=== PATIENT | female | born 1930 | race Caucasian/White ===

== ENCOUNTER → 2017-02-25 | Outpatient (CLI) | payer MEDICARE ==
[2017-01-09 14:46] VITALS: BP 150/55
[~2017-02-25] MED LIST: ASPI-612 PO; ATEN50TA PO; BRIM5DRO2 OP; BRIN10DR EACHEYE; CHOL100013 PO; CIPR250T30 PO; CIPR500T94 PO; CLOB15CR TP; COLE1TAB2 PO; DORZ10DR7 EACHEYE; ESTR42.53 VG; FLUT16SP NS; FLUT16SP2 NS; FURO40TA4 PO; GLIM2TAB PO; GLIM2TAB2 PO; INSU100C4 SQ; INSU100V8 SQ; LATA2.5D3 OP; MELO15TA23 PO; MENT222L TP; METF-620 PO; NITR0.4T SL; NYST1POW2 PO; QUIN40TA16 PO; SENN1TAB9 PO; SERT25TA4 PO; SIMV20TA3 PO; SPIR25TA3 PO; VENTOLIN HFA18 GM INH
--- NOTE | 2017-03-03 18:59 | EEG ---
DATE OF SERVICE: 02/25/2017 ELECTROENCEPHALOGRAM NUMBER: [id number]. OBJECTIVE: This is an 87-year-old female patient with history of memory loss and cognitive function decline. EEG was requested to evaluate cerebral activity. METHODS: Twenty electrodes were applied according to the international 10-20 electrode placement system. EKG monitoring, hyperventilation, intermittent photic stimulation, monopolar and bipolar montages are routinely utilized. The record was obtained on a digital system with video monitoring. FINDINGS: 1. Background: The patient was recorded mainly in the awake and drowsy states. No actual sleep state was recorded. The overall background amplitude is 5-10 microvolts. A posterior dominant rhythm of 8 Hz is observed. 2. Abnormalities: No specific epileptiform discharge or electrographic seizure is seen. 3. Activation: Hyperventilation was not performed because the patient has shortness of breath. Intermittent photic stimulation was performed with photic driving. IMPRESSION: This electroencephalogram is within the normal limits of the study for the awake and drowsy states mainly. No actual sleep state was recorded. No focal, lateralizing, specific epileptiform discharge or electrographic seizure is seen. MARINO CARRIZALES MD DR: YOLANDA/jim JOB#: [id number] / [id number] KARLIE
== END | disposition home or self-care (01) ==
LOC: RT 10:14
PROVIDERS: ATTEND Psychiatry & Neurology Neurology
DX: F31.9 Bipolar disorder, unspecified (principal); R41.3 Other amnesia; R06.02 Shortness of breath
CPT/HCPCS: 95816

== ENCOUNTER 2017-06-19 09:17 | Emergency (ER) | payer MEDICARE ==
[2017-06-19] MEDS: MORPHINE SULFATE 4 MG/ML DISP.SYRIN. IM ×2 (10:02)
[2017-06-19] MEDS: ONDANSETRON ODT 4 MG TAB.RAPDIS. PO ×2 (10:02)
== END 2017-06-19 12:42 | disposition home or self-care (01) ==
LOC: ER 09:17
DX: M25.552 Pain in left hip (principal); Z96.642 Presence of left artificial hip joint; E78.00 Pure hypercholesterolemia, unspecified; I10 Essential (primary) hypertension; E11.39 Type 2 diabetes mellitus with other diabetic ophthalmic complication; H40.9 Unspecified glaucoma; J44.9 Chronic obstructive pulmonary disease, unspecified; Z87.440 Personal history of urinary (tract) infections; Z90.710 Acquired absence of both cervix and uterus; Z90.49 Acquired absence of other specified parts of digestive tract
CPT/HCPCS: 73502; 96372; 99284-25; J2270; Q0162

== ENCOUNTER → 2018-02-22 | Outpatient (CLI) | payer MEDICARE ==
[2017-06-19 11:54] VITALS: BP 132/82
[~2018-02-22] MED LIST changes: +HYDR-963 PO; +LIDOCAINE 2% PF 2ML VIAL. ONE; -METF-620 PO; +METF10007 PO; +POLY17PO29 PO; +SODI650T PO; -SPIR25TA3 PO; +SPIR25TA5 PO; +THEREMS M PO; +TRIA15CR2 TP; +[UNRECOGNIZED DRUG - CODE] PO; +methylPREDNISolone ACETATE 40 MG/ML VIAL. ONE; +methylPREDNISolone ACETATE 80 MG/ML VIAL. ONE
--- NOTE | 2018-02-23 01:19 | PAIN ---
DATE OF SERVICE: 02/22/2018 INITIAL CONSULTATION FOR PAIN CLINIC CHIEF COMPLAINT: Low back and left lower extremity pain. HISTORY OF PRESENT ILLNESS: This is an 87-year-old female who presents with history of pain in the low back, left lower extremity starting about June of this year, no regional injury or action that she is aware of, just begun hurting more and more each day in the low back, left lower extremity, posterior gluteus, posterior thigh, posterolateral thigh, lateral anterior thigh, medial thigh and anterior knee and medial lower leg. The patient reports it is getting worse with time, worse with standing and weightbearing. The patient has very difficult for her to bear weight and has been more constant, stabbing, tingling, cramping, shooting into the left leg in a radicular pattern. The patient reports it occasionally awaken her from sleep at night. She lives on her left side, especially. She is using a wheelchair to ambulate at most times. It does affect her ability to walk fairly significantly, does not affect her bowel or bladder control, however. The patient was exercising and she is doing some stretching, seems to help. Has had no other form of physical therapies or other modalities prior to this time to help the pain. The patient did have MRI scan of the lumbar spine in the outside facility showing multilevel degenerative neural foraminal stenosis, most pronounced severe degree on the left at the L4-L5 and [id number] degree on the right L2-L3 and L4-L5, degenerative anterolisthesis at L4-L5 as well. The patient rates her disability rate from 0-10, 10 being the worst, as a 3 with family home responsibilities, 4 with recreation, 5 with self care, 0 with sexual behavior, 2 with life support activities. The patient reports no loss of motor function, significant weakness in the left leg and fatigability with walking, standing and ambulating. The patient prefers to use a wheelchair and she is in a wheelchair on her presentation today. PAST MEDICAL HISTORY: Significant for COPD; diabetes, insulin-dependent; hypertension; hyperlipidemia; prolapsed heart valve; headaches; arthritis and Graves disease. PAST SURGICAL HISTORY: Previous surgeries include cholecystectomy, partial hysterectomy, cataract extraction, tonsillectomy and a left hip replacement. CURRENT MEDICATIONS: Include hydrocodone, Cipro, daily baby aspirin, atenolol, latanoprost eyedrops, Estrace, quinapril, colestipol, nitroglycerin, fluticasone, statin, clobetasol, menthol, sennosides, dorzolamide, Combigan eyedrops, Azopt eyedrops, vitamin D, spironolactone, Lasix, sertraline, Meloxicam, insulin, Lantus insulin, NovoLog at sliding scale and inhalers. ALLERGIES: The patient is allergic to CODEINE. FAMILY HISTORY: Significant for hearing loss, diabetes and cancers. SOCIAL HISTORY: The patient does not drink, does not smoke, does not use any illegal, illicit or recreational drugs. She reports she is retired, lives in [facility] and is . REVIEW OF SYSTEMS: The patient's review of systems is positive for those items mentioned in the history of present illness. All systems reviewed and otherwise negative. It is complete, full and well documented on the patient's chart. PHYSICAL EXAMINATION: VITAL SIGNS: Today, the patient's blood pressure is 136/62, pulse 80, respirations are 18, temperature is 98.2 degrees Fahrenheit, height is 5 feet 4 inches and weight is 213 pounds. GENERAL: The patient is awake, alert, oriented, appropriate and very pleasant demeanor. The patient is accompanied by her daughter. The patient is somewhat hard of hearing. HEENT: Head shows normocephalic and atraumatic. Extraocular movements are intact and symmetrical. Oral cavity: Mucous membranes moist and pink. Some increased lacrimation is noted in the eyes bilaterally. NECK: Shows anterior throat supple without palpable lymphadenopathy noted. Swallow reflex is symmetrical. CHEST: Shows normal on inspection. Breath sounds clear to auscultation bilaterally. HEART: Shows S1 and S2 clear. No murmurs auscultated. ABDOMEN: Soft, obese, nontender and nondistended. No palpable organomegaly is noted. No rebound or guarding demonstrated. BACK: Shows spine grossly in the midline. Slight exaggeration of the thoracic kyphosis and some minor flattening of the lumbar lordotic curvature. No previous scars are noted. Lumbar paraspinous muscle shows symmetrical on inspection, on palpation shows some moderate tenderness bilaterally on palpation but only diffusely throughout the upper, middle and lower distribution of the paraspinous muscles without atrophy without asymmetry or radiation. No trigger points. No tenderness over the sacrum or sacroiliac regions and over the spinous processes. The patient has good rotational motion of the lumbar spine, both laterally at 10 degrees right and left as well as extension 10 degrees, forward flexion 45 degrees without significant increase in pain on any of these maneuvers. EXTREMITIES: The patient's lower extremities show deep tendon reflexes at 1+ in the patellar and tendo-calcaneus tendons are equal. Motor exam is approximately 4 on a scale of 5, but equal and symmetrical with dorsiflexion, extension, quadriceps and hamstrings bilaterally. Peripheral pulses are 1+ posterior tibial. She has approximately 1+ pitting edema in the bilateral ankles on the anterior tibia, two-thirds of the distance to the knees and this is present bilaterally. Lower extremities are warm and dry to touch, equal in color and appearance. Straight leg raise noted to be slightly positive on the left at about 40 degrees. This was performed in a semi-recumbent position as the patient is unable to get out of her wheelchair comfortably to get to a supine position completely on the right side, however, was negative with again limited completion of the straight leg raise. SKIN: Shows warm and dry, good turgor. No edema. No sores, rashes or bruising. IMPRESSION: 1. This is an 87-year-old female with low back and left lower extremity pain in a radicular fashion. 2. MRI scan of the lumbar spine as noted. 3. Arthritis. 4. Hypertension. 5. Diabetes. PLAN: Options were discussed with the patient and the patient's daughter who accompanied her to visit today. We discussed interventional techniques, conservative medical management, physical therapies and she would like to pursue interventional techniques. We discussed a lumbar epidural steroid injection using description as well as anatomical models to describe the procedure. Risks were then discussed including, but not limited to bleeding, infection, possibility of epidural hematoma and subsequent neurological compromise, dural puncture, headaches, spinal cord and/or nerve damage, side effects of steroid medication and poor results regarding pain control. The patient understands and wished to proceed. The patient will return to the clinic in approximately 2 weeks for followup, was counseled as to return appointment, activity level and side effects to be aware of. DIAGNOSES: Lumbar radiculopathy with lumbar spinal stenosis and lumbar degenerative disk disease. PROCEDURES: Lumbar epidural steroid injection, translaminar approach at L4-L5 level using sterile prep and drape, local anesthetic. MEDICATION INJECTED: A total of 120 mg Depo-Medrol plus 5 mL of preservative-free normal saline. CONDITION AT DISCHARGE: Stable. The patient tolerated the procedure well and had no complications. JAVIER JACKSON MD DR: PIA/jim JOB#: [id number] / [id number] RONNIE Sanches MD Family Practice, [facility]
== END | disposition home or self-care (01) ==
LOC: PNCL 12:32
PROVIDERS: ATTEND Anesthesiology
DX: M51.16 Intervertebral disc disorders with radiculopathy, lumbar region (principal); M19.90 Unspecified osteoarthritis, unspecified site; I10 Essential (primary) hypertension; E11.9 Type 2 diabetes mellitus without complications; J44.9 Chronic obstructive pulmonary disease, unspecified; F31.9 Bipolar disorder, unspecified; E78.5 Hyperlipidemia, unspecified; Z90.49 Acquired absence of other specified parts of digestive tract; Z90.710 Acquired absence of both cervix and uterus; Z96.642 Presence of left artificial hip joint; Z79.4 Long term (current) use of insulin; Z98.49 Cataract extraction status, unspecified eye; Z79.899 Other long term (current) drug therapy; Z98.890 Other specified postprocedural states
CPT/HCPCS: 62323; J1030; J1040; J2001

== ENCOUNTER → 2018-06-28 | Outpatient (CLI) | payer MEDICARE ==
[2018-06-20 11:00] VITALS: BP 149/80
[~2018-06-28] MED LIST changes: +ACET325T9 PO; +ALBU2.5V8 NEB; +AMOX1TAB10 PO; +CLOT15CR4 TP; +DICL100G18 TP; +GABA300C18 PO; +HYDR-2761 PO; +HYDR-3135 PO; -HYDR-963 PO; +KETO120S5 TP; -LIDOCAINE 2% PF 2ML VIAL. ONE; +LORA10TA3 PO; +SENN-162 PO; -SENN1TAB9 PO; +SIME100L MC; -methylPREDNISolone ACETATE 40 MG/ML VIAL. ONE; -methylPREDNISolone ACETATE 80 MG/ML VIAL. ONE
--- NOTE | 2018-06-28 14:59 | RAD ---
Indication: Right leg pain TECHNIQUE: Multiple views of the lumbar spine COMPARISON: None FINDINGS: Diffuse osteopenia. Lumbar spine demonstrates straightening. This could be due to muscle spasm or positioning. There is subtle levoscoliosis of the upper lumbar spine. Mild multilevel facet arthropathy. No significant loss of vertebral body height to suggest compression deformities. Multilevel intervertebral disc space narrowing with endplate sclerosis. IMPRESSION: 1. Multilevel moderate degenerative disc disease. Electronically signed by: Enrique Licea DO (06/28/2018 2:54 PM) [id number]
== END | disposition home or self-care (01) ==
LOC: RAD 14:00 → EDSTATUS 06-29 16:10
PROVIDERS: ATTEND Family Medicine
DX: M79.604 Pain in right leg (principal); M51.36 Other intervertebral disc degeneration, lumbar region; M41.86 Other forms of scoliosis, lumbar region; M48.061 Spinal stenosis, lumbar region without neurogenic claudication; M12.88 Other specific arthropathies, not elsewhere classified, other specified site
CPT/HCPCS: 72110

== ENCOUNTER 2018-07-22 10:44 | Inpatient (IN) | payer MEDICARE ==
[~2018-07-22] VITALS: Ht 152.4 cm; Wt 94.5 kg
--- NOTE | 2018-07-22 11:02 | PHYS DOC ---
Past Medical History Past Medical History: Angina, COPD, Diabetes-Type II, Diverticulosis, Glaucoma , High Cholesterol, Hypertension, UTI Past Surgical History: Appendectomy, Hysterectomy Additional Past Surgical Histo: left hip Alcohol Use: None Drug Use: None Adult General Chief Complaint Chief Complaint: HYPOTENSION HPI HPI Patient is a 88 year old female with a history of diabetes, hypertension,COPD, kidney disease, who presents to the ED today from the cap blocker office. Patient states she had gone for routine kidney check, she states they checked her creatinine which was 2.2 and she was hypotensive with blood pressure in the 80s over 50s patient denies any symptoms. PCP Dr. Tellez Review of Systems Review of Systems Constitutional: Denies fever or chills [] Eyes: Denies change in visual acuity, redness, or eye pain [] HENT: Denies nasal congestion or sore throat [] Respiratory: Denies cough or shortness of breath [] Cardiovascular: Reports hypertension. No additional information not addressed in HPI [] GI: Denies abdominal pain, nausea, vomiting, bloody stools or diarrhea [] : Denies dysuria or hematuria [] Musculoskeletal: Denies back pain or joint pain [] Integument: Denies rash or skin lesions [] Neurologic: Denies headache, focal weakness or sensory changes [] Endocrine: Reports elevated creatinine All other systems were reviewed and found to be within normal limits, except as documented in this note. Allergies Allergies Allergies Coded Allergies Type Severity Reaction Last Updated Verified codeine Allergy Intermediate Rash 06/17/18 Yes Physical Exam Physical Exam Constitutional: Overweight patient,no acute distress, non-toxic appearance. [] HENT: Normocephalic, atraumatic, bilateral external ears normal, oropharynx moist, no oral exudates, nose normal. [] Eyes: PERRLA, EOMI, conjunctiva normal, no discharge. [] Neck: Normal range of motion, no tenderness, supple, no stridor. [] Cardiovascular:Heart rate regular rhythm, no murmur [] Lungs & Thorax: Bilateral breath sounds clear to auscultation [] Abdomen: Bowel sounds normal, soft, no tenderness, no masses, no pulsatile masses. [] Skin: Warm, dry, no erythema, no rash. [] Back: No tenderness, no CVA tenderness. [] Extremities: No tenderness, no cyanosis, no clubbing, ROM intact, no edema. [] Neurologic: Alert and oriented X 3, normal motor function, normal sensory function, no focal deficits noted. [] Psychologic: Affect normal, judgement normal, mood normal. [] Current Patient Data Vital Signs Vital Signs Date Time Temp Pulse Resp B/P (MAP) Pulse Ox O2 Delivery O2 Flow Rate FiO2 07/22/18 11:02 97.5 85 20 140/58 (85) 96 Room Air 97.5 Lab Values Laboratory Tests Test 07/22/18 10:57 07/22/18 11:20 07/22/18 12:15 Glucose (Fingerstick) 58 mg/dL (70-99) L Urine Collection Type Unknown Urine Color Yellow Urine Clarity Clear Urine pH 7.0 Urine Specific [place] 1.015 Urine Protein Negative mg/dL (NEG-TRACE) Urine Glucose (UA) Negative mg/dL (NEG) Urine Ketones (Stick) Negative mg/dL (NEG) Urine Blood Negative (NEG) Urine Nitrite Negative (NEG) Urine Bilirubin Negative (NEG) Urine Urobilinogen Dipstick 0.2 mg/dL (0.2 mg/dL) Urine Leukocyte Esterase Large (NEG) Urine RBC 0 /HPF (0-2) Urine WBC Tntc /HPF (0-4) Urine Squamous Epithelial Cells Many /LPF Urine Bacteria Moderate /HPF (0-FEW) White Blood Count 9.2 x10^3/uL (4.0-11.0) Red Blood Count 3.84 x10^6/uL (3.50-5.40) Hemoglobin 11.5 g/dL (12.0-15.5) L Hematocrit 35.5 % (36.0-47.0) L Mean Corpuscular Volume 93 fL (79-100) Mean Corpuscular Hemoglobin 30 pg (25-35) Mean Corpuscular Hemoglobin Concent 33 g/dL (31-37) Red Cell Distribution Width 15.4 % (11.5-14.5) H Platelet Count 337 x10^3/uL (140-400) Neutrophils (%) (Auto) 69 % (31-73) Lymphocytes (%) (Auto) 22 % (24-48) L Monocytes (%) (Auto) 8 % (0-9) Eosinophils (%) (Auto) 1 % (0-3) Basophils (%) (Auto) 1 % (0-3) Neutrophils # (Auto) 6.3 x10^3uL (1.8-7.7) Lymphocytes # (Auto) 2.0 x10^3/uL (1.0-4.8) Monocytes # (Auto) 0.7 x10^3/uL (0.0-1.1) Eosinophils # (Auto) 0.0 x10^3/uL (0.0-0.7) Basophils # (Auto) 0.1 x10^3/uL (0.0-0.2) Sodium Level 141 mmol/L (136-145) Potassium Level 4.7 mmol/L (3.5-5.1) Chloride Level 102 mmol/L (98-107) Carbon Dioxide Level 30 mmol/L (21-32) Anion Gap 9 (6-14) Blood Urea Nitrogen 37 mg/dL (7-20) H Creatinine 2.0 mg/dL (0.6-1.0) H Estimated GFR (Cockcroft-Gault) 23.5 BUN/Creatinine Ratio 19 (6-20) Glucose Level 111 mg/dL (70-99) H Calcium Level 9.6 mg/dL (8.5-10.1) Magnesium Level 2.0 mg/dL (1.8-2.4) Total Bilirubin 0.4 mg/dL (0.2-1.0) Aspartate Amino Transferase (AST) 19 U/L (15-37) Alanine Aminotransferase (ALT) 9 U/L (14-59) L Alkaline Phosphatase 77 U/L (46-116) Creatine Kinase 62 U/L (26-192) Creatine Kinase MB (Mass) 2.2 ng/mL (0.0-3.6) Creatine Kinase MB Relative Index % (0-4) Troponin I Quantitative < 0.017 ng/mL (0.000-0.055) TK-Dpz-R-Type Natriuretic Peptide 826 pg/mL (0-449) H Total Protein 7.1 g/dL (6.4-8.2) Albumin 2.8 g/dL (3.4-5.0) L Albumin/Globulin Ratio 0.7 (1.0-1.7) L Thyroid Stimulating Hormone (TSH) 1.152 uIU/mL (0.358-3.74) Laboratory Tests 07/22/18 12:15 Laboratory Tests 07/22/18 12:15 EKG EKG [] Radiology/Procedures Radiology/Procedures [] Course & Med Decision Making Course & Med Decision Making Pertinent Labs and Imaging studies reviewed. (See chart for details) This is a 88-year-old female patient presenting to the ED today to be evaluated for hypotension and elevated creatinine which were noted at the doctor's office. On arrival to the ED blood pressure 140/58 with a heart rate of 85. CBC with hemoglobin of 11.5, hematocrit 35.5, normal WBC, CMP with creatinine of 2.0, BUN 37. Urine analysis is noted for a UTI. Patient will be started on IV fluids. Rocephin ordered. Consulted with Dr. Meredith who will follow-up with patient for nephrology Consulted Dr. Mittal who accepted patient for admission. Dragon Disclaimer Dragon Disclaimer This electronic medical record was generated, in whole or in part, using a voice recognition dictation system. Departure Departure Impression: Primary Impression: UTI (urinary tract infection) Additional Impressions: Acute renal failure Hypotension Disposition: ADMITTED INPATIENT Condition: STABLE Referrals: JONATHAN ALMANZAR MD (PCP) Problem Qualifiers Primary Impression: UTI (urinary tract infection) Urinary tract infection type: site unspecified Hematuria presence: without hematuria Qualified Codes: N39.0 - Urinary tract infection, site not specified Additional Impressions: Acute renal failure Acute renal failure type: unspecified Qualified Codes: N17.9 - Acute kidney failure, unspecified Hypotension Hypotension type: unspecified hypotension type Qualified Codes: I95.9 - Hypotension, unspecified DARLIN CELESTIN APRN Jul 22, 2018 11:02
[2018-07-22 11:27] LABS: BILIRUBIN,URINE NEGATIVE (NEG); CLARITY,URINE CLEAR; COLOR,URINE YELLOW; NITRITE,URINE NEGATIVE (NEG); PROTEIN,URINE NEGATIVE (NEG-TRACE); UROBILINOGEN,URINE 0.2 mg/dL (0.2 mg/dL)
[2018-07-22 11:37] LABS: BACTERIA,URINE MODERATE /HPF (0-FEW); RBC,URINE 0 /HPF (0-2); SQUAMOUS EPITHELIAL CELL,UR MANY /LPF; WBC,URINE TNTC /HPF (0-4)
--- NOTE | 2018-07-22 11:52 | RAD ---
PORTABLE CHEST 1V Clinical indications: HYPOTENSIVE COMPARISON: May 19, 2018. Findings: There is elevation of the right hemidiaphragm which is unchanged. There is medial left lung base infiltrate or atelectasis. No pleural effusion or pneumothorax is seen. The heart size, pulmonary vasculature, mediastinum and both sammy are stable. Impression: Medial left lung base infiltrate or atelectasis. Electronically signed by: Tod James MD (07/22/2018 11:49 AM) [facility]
--- NOTE | 2018-07-22 11:58 | EKG ---
[facility] [address] [place] [address] Test Date: 2018-07-22 Test Time: 11:11:01 Pat Name: ARNOLD MARCANO Department: Room: Gender: F Radiologic Technologist: : [id number] Requested By: DARLIN CELESTIN Order Number: [id number] Reading MD: Shorty Mendez MD Measurements Intervals Tillar Rate: 76 P: 50 CA: 190 QRS: -8 QRSD: 76 T: 16 QT: 346 QTc: 393 Interpretive Statements SINUS RHYTHM LEFTWARD AXIS QRS(T) CONTOUR ABNORMALITY CONSISTENT WITH ANTEROSEPTAL INFARCT AGE UNDETERMINED CONSISTENT WITH INFERIOR INFARCT PROBABLY OLD ABNORMAL ECG Electronically Signed On 07-26-2018 8:07:27 GEAR MACHINIST by Shorty Mendez MD
[2018-07-22 12:27] LABS: BASO # 0.1 x10^3/uL (0.0-0.2); BASO % 1 % (0-3); EOS % 1 % (0-3); HEMATOCRIT 35.5 % (36.0-47.0); HEMOGLOBIN 11.5 g/dL (12.0-15.5); LYMPH % 22 % (24-48); MEAN CORPUSCULAR HEMOGLOBIN 30 pg (25-35); MEAN CORPUSCULAR HGB CONC 33 g/dL (31-37); MEAN CORPUSCULAR VOLUME 93 fL (79-100); MONO # 0.7 x10^3/uL (0.0-1.1); MONO % 8 % (0-9); NEUT # 6.3 x10^3uL (1.8-7.7); NEUT % 69 % (31-73); PLATELET COUNT 337 x10^3/uL (140-400); RED BLOOD COUNT 3.84 x10^6/uL (3.50-5.40); RED CELL DISTRIBUTION WIDTH 15.4 % (11.5-14.5); WHITE BLOOD COUNT 9.2 x10^3/uL (4.0-11.0)
[2018-07-22 12:38] LABS: CALCIUM 9.6 mg/dL (8.5-10.1); GFR 23.5; POTASSIUM 4.7 mmol/L (3.5-5.1)
[2018-07-22 12:43] LABS: ALBUMIN 2.8 g/dL (3.4-5.0); ALBUMIN/GLOBULIN RATIO 0.7 (1.0-1.7); TOTAL BILIRUBIN 0.4 mg/dL (0.2-1.0); TOTAL PROTEIN 7.1 g/dL (6.4-8.2)
[2018-07-22 12:52] LABS: CREATINE KINASE 62 U/L (26-192)
[2018-07-22] MEDS ORDERED: ONDANSETRON PF 4 MG/2 ML VIAL. IV PRN (13:30)
[2018-07-22] MEDS ORDERED: IV NORMAL SALINE 1000ML BAG 1,000 ML IV ONE ×2 (13:30)
[2018-07-22] MEDS ORDERED: cefTRIAXone IV Push 1 GM VIAL. IVP ONE (13:30)
[2018-07-22 15:00] VITALS: BP 153/63
--- NOTE | 2018-07-22 15:28 | HP ---
ADMIT DATE: 07/22/2018 CHIEF COMPLAINT: Hypotension and elevated creatinine. 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 She was also hypotensive with pressures in the 80s/50s. She was sent to the ER, rates her symptoms as 7/10. She has associated dizziness, it has been occurring for several days. She is also very hard of hearing. She tried taking some home meds but that did not work, describes as agonizing. I have discussed the case with the ER physician. We are going to admit the patient and consult Nephrology. PAST MEDICAL HISTORY: Chronic renal insufficiency, severely decreased hearing, angina, COPD, diabetes, diverticulosis, glaucoma, hyperlipidemia, hypertension, UTI, appendectomy, hysterectomy, left hip surgery. ALLERGIES: CODEINE. FAMILY HISTORY: Coronary artery disease. SOCIAL HISTORY: She is retired. She does not drink, smoke or take drugs. MEDICATIONS: Reviewed. She is on 26 including Augmentin, ProAir, Nitrostat, quinapril, spironolactone, aspirin, Voltaren, Tylenol, gabapentin, sertraline, Lasix, guaifenesin, fluticasone, glaucoma eye drops, sodium bicarbonate, simethicone, MiraLax, insulin, clotrimazole, Nizoral, triamcinolone cream, vitamin D. REVIEW OF SYSTEMS: GENERAL: No history of weight change, weakness or fevers. SKIN: No bruising, hair changes or rashes. EYES: No blurred, double or loss of vision. NOSE AND THROAT: No history of nosebleeds, hoarseness or sore throat. HEART: No history of palpitations, chest pain or shortness of breath on exertion. LUNGS: Denies cough, hemoptysis, wheezing or shortness of breath. GASTROINTESTINAL: Denies changes in appetite, nausea, vomiting, diarrhea or constipation. GENITOURINARY: No history of frequency, urgency, hesitancy or nocturia. NEUROLOGIC: She complains of decreased hearing and dizziness. PSYCHIATRIC: No history of panic, anxiety or depression. ENDOCRINE: No history of heat or cold intolerance, polyuria or polydipsia. EXTREMITIES: Denies muscle weakness, joint pain, pain on walking or stiffness. PHYSICAL EXAMINATION: VITAL SIGNS: Temperature afebrile, pulse 80, respirations 20, blood pressure currently 140/58, O2 sat 96%. GENERAL: She is alert, cooperative, hard of hearing. Her family is present. HEART: Normal S1, S2. LUNGS: Clear. ABDOMEN: Soft, obese. EXTREMITIES: Trace edema. SKIN: No rashes. ENDOCRINE: No thyromegaly. LYMPHATICS: No cervical nodes. HEMATOPOIETIC: No bruising. PSYCHIATRIC: She is anxious. LABORATORY DATA: Troponin 0. Creatinine 2, BUN 37, hemoglobin 11.5. Urinalysis, large amount of leukocyte esterase, too numerous to count white cells. BNP is 826. Chest x-ray shows mild left basilar infiltrate or atelectasis. ASSESSMENT AND PLAN: Acute on chronic renal failure with azotemia and incidental finding of urinary tract infection, anemia and probable mild element of heart failure. Possible pneumonia. The patient has been admitted. We will start IV antibiotics, IV fluids, daily labs, home meds, PT, OT, consult Nephrology, full code. Deep vein thrombosis prophylaxis, normal saline 75 an hour. O2 per nasal cannula. Check TSH, urine culture, consult Cardiology. RICKEY OROZCO DO DR: KHOA/jim JOB#: [id number] / [id number]
[2018-07-22] MEDS ORDERED: NYST15PO9 TP (16:42)
[2018-07-22] MEDS ORDERED: HYDR-2765 PO ×2 (16:42)
[2018-07-22] MEDS ORDERED: LEVO750T5 PO (16:42)
[2018-07-22] MEDS ORDERED: MV-M1TAB8 PO (16:42)
[2018-07-22] MEDS ORDERED: guaiFENesin DM 200MG/20MG 10 ML SYRUP PO PRN (17:00)
[2018-07-22] MEDS ORDERED: DEXTROSE 50% 25 GM / 50ML DISP.SYRIN. IV PRN (17:00)
[2018-07-22] MEDS ORDERED: DICLOFENAC SODIUM 1% TOPICAL GEL 100GM TUBE. TP PRN (17:00)
[2018-07-22] MEDS ORDERED: HYDROcodone/APAP 7.5/325MG 1 TAB TABLET PO PRN (17:00)
[2018-07-22] MEDS: INSULIN LISPRO 300 UNITS/3 ML INSULN.PEN. SQ SCH (17:00)
[2018-07-22] MEDS ORDERED: ACETAMINOPHEN 325 MG TABLET. PO PRN (17:00)
[2018-07-22] MEDS ORDERED: ALBUTEROL SULFATE 2.5 MG/3 ML NEBU. NEB PRN (17:00)
[2018-07-22] MEDS ORDERED: NITROGLYCERIN SUBLINGUAL 0.4 MG BOTTLE OF 25. SL PRN (17:00)
[2018-07-22] MEDS ORDERED: CETIRIZINE HCL 10 MG TABLET. PO PRN (17:15)
[2018-07-22] MEDS ORDERED: POLYETHYLENE GLYCOL 3350 17 GM PACKET. PO PRN (17:16)
[2018-07-22] MEDS ORDERED: SIMETHICONE 80 MG TAB.CHEW PO PRN (17:30)
[2018-07-22] MEDS: LISINOPRIL 20 MG TABLET PO SCH (18:38)
[2018-07-22 19:00] VITALS: BP 129/56
[2018-07-22] MEDS: GABAPENTIN 300 MG CAPSULE. PO SCH (20:31)
[2018-07-22] MEDS: SODIUM BICARBONATE 650 MG TABLET. PO SCH (20:31)
[2018-07-22] MEDS: TIMOLOL 0.5% OPHTH SOLUTION 5ML BOTTLE. OU SCH (20:32)
[2018-07-22] MEDS: DORZOLAMIDE 2% OPHTH SOLUTION 10ML BOTTLE. OU SCH (20:32)
[2018-07-22] MEDS: HYDROcodone/APAP 7.5/325MG 1 TAB TABLET PO SCH (20:32)
[2018-07-22] MEDS: LATANOPROST 0.005% OPHTH SOLUTION 2.5ML BOTTLE. OU SCH (20:33)
[2018-07-22] MEDS: INSULIN GLARGINE 300 UNITS/3 ML INSULN.PEN. SQ SCH (20:33)
[2018-07-22] MEDS: NYSTATIN TOPICAL POWDER 15GM BOTTLE. TP SCH (20:34)
[2018-07-22 23:00] VITALS: BP 109/47
[2018-07-23 03:00] VITALS: BP 109/36
[2018-07-23 07:36] VITALS: BP 136/58
[2018-07-23] MEDS: INSULIN LISPRO 300 UNITS/3 ML INSULN.PEN. SQ SCH ×3 (08:00→16:57)
[2018-07-23] MEDS: SERTRALINE 25 MG TABLET. PO SCH (08:46)
[2018-07-23] MEDS: GABAPENTIN 300 MG CAPSULE. PO SCH (08:48)
[2018-07-23] MEDS: FUROSEMIDE 40 MG TABLET. PO SCH (08:48)
[2018-07-23] MEDS: CHOLECALCIFEROL (VITAMIN D3) 1,000 UNIT TABLET PO SCH (08:48)
[2018-07-23] MEDS: MULTIVITAMIN with MINERAL TABLET. PO SCH (08:48)
[2018-07-23] MEDS: HYDROcodone/APAP 7.5/325MG 1 TAB TABLET PO SCH ×3 (08:48→20:27)
[2018-07-23] MEDS: SODIUM BICARBONATE 650 MG TABLET. PO SCH ×2 (08:49→20:27)
[2018-07-23] MEDS: SPIRONOLACTONE 25 MG TABLET PO SCH (08:50)
[2018-07-23] MEDS: LISINOPRIL 20 MG TABLET PO SCH (08:50)
[2018-07-23] MEDS: NYSTATIN TOPICAL POWDER 15GM BOTTLE. TP SCH ×3 (08:51→20:25)
[2018-07-23] MEDS: FLUTICASONE 50MCG/NASAL SPRAY 16GM BOTTLE. NS SCH (08:51)
[2018-07-23] MEDS: DORZOLAMIDE 2% OPHTH SOLUTION 10ML BOTTLE. OU SCH ×2 (08:51→20:27)
[2018-07-23] MEDS: TIMOLOL 0.5% OPHTH SOLUTION 5ML BOTTLE. OU SCH ×2 (08:51→20:27)
--- NOTE | 2018-07-23 10:32 | PDOC ---
PROGRESS NOTES History of Present Illness History of Present Illness ASSESSMENT /PLAN: Acute on chronic renal failure azotemia urinary tract infection, / sirs anemia CONGESTIVE heart failure. Possible pneumonia. admitted. IV antibiotics, IV fluid SUPPORT, daily labs, home meds, PT, OT, consult Nephrology, full code. Deep vein thrombosis prophylaxis, O2 per nasal cannula. Check TSH, urine culture, consult Cardiology. Vitals Vitals Vital Signs Date Time Temp Pulse Resp B/P (MAP) Pulse Ox O2 Delivery O2 Flow Rate FiO2 07/23/18 09:55 97 Room Air 2.0 07/23/18 08:50 84 136/58 07/23/18 07:36 98.3 18 98.3 Physical Exam Physical Exam GENERAL: She is alert, cooperative, hard of hearing. HEART: Normal S1, S2. LUNGS: Clear. ABDOMEN: Soft, obese. EXTREMITIES: Trace edema. SKIN: No rashes. ENDOCRINE: No thyromegaly. LYMPHATICS: No cervical nodes. HEMATOPOIETIC: No bruising. PSYCHIATRIC: mood , anxious. General: Alert, Oriented X3, Cooperative Heart: Regular rate Lungs: Clear, Wheezing Abdomen: Soft, No hepatosplenomegaly Extremities: No cyanosis, No edema Labs LABS PORTABLE CHEST 1V Clinical indications: HYPOTENSIVE COMPARISON: May 19, 2018. Findings: There is elevation of the right hemidiaphragm which is unchanged. There is medial left lung base infiltrate or atelectasis. No pleural effusion or pneumothorax is seen. The heart size, pulmonary vasculature, mediastinum and both sammy are stable. Impression: Medial left lung base infiltrate or atelectasis. Electronically signed by: Tod James MD (07/22/2018 11:49 AM) [facility] Laboratory Tests Test 07/22/18 10:57 07/22/18 11:20 07/22/18 12:15 07/22/18 15:11 Glucose (Fingerstick) 58 mg/dL (70-99) 80 mg/dL (70-99) Urine Collection Type Unknown Urine Color Yellow Urine Clarity Clear Urine pH 7.0 Urine Specific Pope 1.015 Urine Protein Negative mg/dL (NEG-TRACE) Urine Glucose (UA) Negative mg/dL (NEG) Urine Ketones (Stick) Negative mg/dL (NEG) Urine Blood Negative (NEG) Urine Nitrite Negative (NEG) Urine Bilirubin Negative (NEG) Urine Urobilinogen Dipstick 0.2 mg/dL (0.2 mg/dL) Urine Leukocyte Esterase Large (NEG) Urine RBC 0 /HPF (0-2) Urine WBC Tntc /HPF (0-4) Urine Squamous Epithelial Cells Many /LPF Urine Bacteria Moderate /HPF (0-FEW) White Blood Count 9.2 x10^3/uL (4.0-11.0) Red Blood Count 3.84 x10^6/uL (3.50-5.40) Hemoglobin 11.5 g/dL (12.0-15.5) Hematocrit 35.5 % (36.0-47.0) Mean Corpuscular Volume 93 fL (79-100) Mean Corpuscular Hemoglobin 30 pg (25-35) Mean Corpuscular Hemoglobin Concent 33 g/dL (31-37) Red Cell Distribution Width 15.4 % (11.5-14.5) Platelet Count 337 x10^3/uL (140-400) Neutrophils (%) (Auto) 69 % (31-73) Lymphocytes (%) (Auto) 22 % (24-48) Monocytes (%) (Auto) 8 % (0-9) Eosinophils (%) (Auto) 1 % (0-3) Basophils (%) (Auto) 1 % (0-3) Neutrophils # (Auto) 6.3 x10^3uL (1.8-7.7) Lymphocytes # (Auto) 2.0 x10^3/uL (1.0-4.8) Monocytes # (Auto) 0.7 x10^3/uL (0.0-1.1) Eosinophils # (Auto) 0.0 x10^3/uL (0.0-0.7) Basophils # (Auto) 0.1 x10^3/uL (0.0-0.2) Sodium Level 141 mmol/L (136-145) Potassium Level 4.7 mmol/L (3.5-5.1) Chloride Level 102 mmol/L (98-107) Carbon Dioxide Level 30 mmol/L (21-32) Anion Gap 9 (6-14) Blood Urea Nitrogen 37 mg/dL (7-20) Creatinine 2.0 mg/dL (0.6-1.0) Estimated GFR (Cockcroft-Gault) 23.5 BUN/Creatinine Ratio 19 (6-20) Glucose Level 111 mg/dL (70-99) Calcium Level 9.6 mg/dL (8.5-10.1) Magnesium Level 2.0 mg/dL (1.8-2.4) Total Bilirubin 0.4 mg/dL (0.2-1.0) Aspartate Amino Transf (AST/SGOT) 19 U/L (15-37) Alanine Aminotransferase (ALT/SGPT) 9 U/L (14-59) Alkaline Phosphatase 77 U/L (46-116) Creatine Kinase 62 U/L (26-192) Creatine Kinase MB (Mass) 2.2 ng/mL (0.0-3.6) Creatine Kinase MB Relative Index % (0-4) Troponin I Quantitative < 0.017 ng/mL (0.000-0.055) CO-Mjo-I-Type Natriuretic Peptide 826 pg/mL (0-449) Total Protein 7.1 g/dL (6.4-8.2) Albumin 2.8 g/dL (3.4-5.0) Albumin/Globulin Ratio 0.7 (1.0-1.7) Thyroid Stimulating Hormone (TSH) 1.152 uIU/mL (0.358-3.74) Test 07/22/18 20:32 07/23/18 07:04 Glucose (Fingerstick) 199 mg/dL (70-99) 81 mg/dL (70-99) Assessment and Plan Assessmemt and Plan Problems Medical Problems: (1) Acute renal failure Status: Acute (2) Hypotension Status: Acute (3) UTI (urinary tract infection) Status: Acute Comment Review of Relevant I have reviewed the following items danny (where applicable) has been applied. Labs Laboratory Tests Test 07/22/18 10:57 07/22/18 11:20 07/22/18 12:15 07/22/18 15:11 Glucose (Fingerstick) 58 mg/dL (70-99) 80 mg/dL (70-99) Urine Collection Type Unknown Urine Color Yellow Urine Clarity Clear Urine pH 7.0 Urine Specific Pope 1.015 Urine Protein Negative mg/dL (NEG-TRACE) Urine Glucose (UA) Negative mg/dL (NEG) Urine Ketones (Stick) Negative mg/dL (NEG) Urine Blood Negative (NEG) Urine Nitrite Negative (NEG) Urine Bilirubin Negative (NEG) Urine Urobilinogen Dipstick 0.2 mg/dL (0.2 mg/dL) Urine Leukocyte Esterase Large (NEG) Urine RBC 0 /HPF (0-2) Urine WBC Tntc /HPF (0-4) Urine Squamous Epithelial Cells Many /LPF Urine Bacteria Moderate /HPF (0-FEW) White Blood Count 9.2 x10^3/uL (4.0-11.0) Red Blood Count 3.84 x10^6/uL (3.50-5.40) Hemoglobin 11.5 g/dL (12.0-15.5) Hematocrit 35.5 % (36.0-47.0) Mean Corpuscular Volume 93 fL (79-100) Mean Corpuscular Hemoglobin 30 pg (25-35) Mean Corpuscular Hemoglobin Concent 33 g/dL (31-37) Red Cell Distribution Width 15.4 % (11.5-14.5) Platelet Count 337 x10^3/uL (140-400) Neutrophils (%) (Auto) 69 % (31-73) Lymphocytes (%) (Auto) 22 % (24-48) Monocytes (%) (Auto) 8 % (0-9) Eosinophils (%) (Auto) 1 % (0-3) Basophils (%) (Auto) 1 % (0-3) Neutrophils # (Auto) 6.3 x10^3uL (1.8-7.7) Lymphocytes # (Auto) 2.0 x10^3/uL (1.0-4.8) Monocytes # (Auto) 0.7 x10^3/uL (0.0-1.1) Eosinophils # (Auto) 0.0 x10^3/uL (0.0-0.7) Basophils # (Auto) 0.1 x10^3/uL (0.0-0.2) Sodium Level 141 mmol/L (136-145) Potassium Level 4.7 mmol/L (3.5-5.1) Chloride Level 102 mmol/L (98-107) Carbon Dioxide Level 30 mmol/L (21-32) Anion Gap 9 (6-14) Blood Urea Nitrogen 37 mg/dL (7-20) Creatinine 2.0 mg/dL (0.6-1.0) Estimated GFR (Cockcroft-Gault) 23.5 BUN/Creatinine Ratio 19 (6-20) Glucose Level 111 mg/dL (70-99) Calcium Level 9.6 mg/dL (8.5-10.1) Magnesium Level 2.0 mg/dL (1.8-2.4) Total Bilirubin 0.4 mg/dL (0.2-1.0) Aspartate Amino Transf (AST/SGOT) 19 U/L (15-37) Alanine Aminotransferase (ALT/SGPT) 9 U/L (14-59) Alkaline Phosphatase 77 U/L (46-116) Creatine Kinase 62 U/L (26-192) Creatine Kinase MB (Mass) 2.2 ng/mL (0.0-3.6) Creatine Kinase MB Relative Index % (0-4) Troponin I Quantitative < 0.017 ng/mL (0.000-0.055) BP-Yiq-S-Type Natriuretic Peptide 826 pg/mL (0-449) Total Protein 7.1 g/dL (6.4-8.2) Albumin 2.8 g/dL (3.4-5.0) Albumin/Globulin Ratio 0.7 (1.0-1.7) Thyroid Stimulating Hormone (TSH) 1.152 uIU/mL (0.358-3.74) Test 07/22/18 20:32 07/23/18 07:04 Glucose (Fingerstick) 199 mg/dL (70-99) 81 mg/dL (70-99) Laboratory Tests Test 07/22/18 10:57 07/22/18 11:20 07/22/18 12:15 07/22/18 15:11 Glucose (Fingerstick) 58 mg/dL (70-99) 80 mg/dL (70-99) Urine Collection Type Unknown Urine Color Yellow Urine Clarity Clear Urine pH 7.0 Urine Specific Pope 1.015 Urine Protein Negative mg/dL (NEG-TRACE) Urine Glucose (UA) Negative mg/dL (NEG) Urine Ketones (Stick) Negative mg/dL (NEG) Urine Blood Negative (NEG) Urine Nitrite Negative (NEG) Urine Bilirubin Negative (NEG) Urine Urobilinogen Dipstick 0.2 mg/dL (0.2 mg/dL) Urine Leukocyte Esterase Large (NEG) Urine RBC 0 /HPF (0-2) Urine WBC Tntc /HPF (0-4) Urine Squamous Epithelial Cells Many /LPF Urine Bacteria Moderate /HPF (0-FEW) White Blood Count 9.2 x10^3/uL (4.0-11.0) Red Blood Count 3.84 x10^6/uL (3.50-5.40) Hemoglobin 11.5 g/dL (12.0-15.5) Hematocrit 35.5 % (36.0-47.0) Mean Corpuscular Volume 93 fL (79-100) Mean Corpuscular Hemoglobin 30 pg (25-35) Mean Corpuscular Hemoglobin Concent 33 g/dL (31-37) Red Cell Distribution Width 15.4 % (11.5-14.5) Platelet Count 337 x10^3/uL (140-400) Neutrophils (%) (Auto) 69 % (31-73) Lymphocytes (%) (Auto) 22 % (24-48) Monocytes (%) (Auto) 8 % (0-9) Eosinophils (%) (Auto) 1 % (0-3) Basophils (%) (Auto) 1 % (0-3) Neutrophils # (Auto) 6.3 x10^3uL (1.8-7.7) Lymphocytes # (Auto) 2.0 x10^3/uL (1.0-4.8) Monocytes # (Auto) 0.7 x10^3/uL (0.0-1.1) Eosinophils # (Auto) 0.0 x10^3/uL (0.0-0.7) Basophils # (Auto) 0.1 x10^3/uL (0.0-0.2) Sodium Level 141 mmol/L (136-145) Potassium Level 4.7 mmol/L (3.5-5.1) Chloride Level 102 mmol/L (98-107) Carbon Dioxide Level 30 mmol/L (21-32) Anion Gap 9 (6-14) Blood Urea Nitrogen 37 mg/dL (7-20) Creatinine 2.0 mg/dL (0.6-1.0) Estimated GFR (Cockcroft-Gault) 23.5 BUN/Creatinine Ratio 19 (6-20) Glucose Level 111 mg/dL (70-99) Calcium Level 9.6 mg/dL (8.5-10.1) Magnesium Level 2.0 mg/dL (1.8-2.4) Total Bilirubin 0.4 mg/dL (0.2-1.0) Aspartate Amino Transf (AST/SGOT) 19 U/L (15-37) Alanine Aminotransferase (ALT/SGPT) 9 U/L (14-59) Alkaline Phosphatase 77 U/L (46-116) Creatine Kinase 62 U/L (26-192) Creatine Kinase MB (Mass) 2.2 ng/mL (0.0-3.6) Creatine Kinase MB Relative Index % (0-4) Troponin I Quantitative < 0.017 ng/mL (0.000-0.055) FG-Kzv-M-Type Natriuretic Peptide 826 pg/mL (0-449) Total Protein 7.1 g/dL (6.4-8.2) Albumin 2.8 g/dL (3.4-5.0) Albumin/Globulin Ratio 0.7 (1.0-1.7) Thyroid Stimulating Hormone (TSH) 1.152 uIU/mL (0.358-3.74) Test 07/22/18 20:32 07/23/18 07:04 Glucose (Fingerstick) 199 mg/dL (70-99) 81 mg/dL (70-99) Medications Current Medications Sodium Chloride 1,000 ml @ 1,000 mls/hr 1X ONCE IV Last administered on at 13:56; Start 07/22/18 at 13:30; Stop 07/22/18 at 14:29; Status DC Ceftriaxone Sodium (Rocephin) 1 gm 1X ONCE IVP Last administered on 07/22/18at 13:57; Start 07/22/18 at 13:30; Stop 07/22/18 at 13:31; Status DC Ondansetron HCl (Zofran) 4 mg PRN Q8HRS PRN IV NAUSEA/VOMITING; Start 07/22/18 at 13:30; Stop 07/23/18 at 13:29 Sodium Chloride 1,000 ml @ 75 mls/hr 1X ONCE IV Last administered on at 16:33; Start 07/22/18 at 13:30; Stop 07/23/18 at 02:49; Status DC Ceftriaxone Sodium (Rocephin) 1 gm Q24H IVP ; Start 07/23/18 at 13:00 Influenza Virus Vaccine (Afluria Trivalent 4445-7615 Syringe) 0.5 ml ONCE ONCE VAX IM Last administered on 07/22/18at 16:41; Start 07/22/18 at 16:00; Stop at 16:01; Status DC Acetaminophen (Tylenol) 650 mg PRN QID PRN PO MILD PAIN; Start 07/22/18 at 17:00 Diclofenac Sodium (Voltaren) 2 south PRN QID PRN TP arthritis; Start 07/22/18 at 17:00 Fluticasone Propionate (Flonase) 2 spray DAILY NS Last administered on 08:51; Start 07/23/18 at 09:00 Furosemide (Lasix) 40 mg DAILY PO Last administered on 07/23/18 08:48; Start at 09:00 Gabapentin (Neurontin) 300 mg TID PO Last administered on 07/23/18 08:48; Start 07/22/18 at 21:00 Guaifenesin (Robitussin Dm) 10 ml PRN QID PRN PO COUGH; Start 07/22/18 at 17:00 Acetaminophen/ Hydrocodone Bitart (Lortab 7.5/325) 1 tab PRN Q6HRS PRN PO MODERATE PAIN; Start 07/22/18 at 17:00 Acetaminophen/ Hydrocodone Bitart (Lortab 7.5/325) 1 tab TID PO Last administered on 07/23/18at 08:48; Start 07/22/18 at 21:00 Nitroglycerin (Nitrostat) 0.4 mg PRN Q5MIN PRN SL CHEST PAIN; Start 07/22/18 at 17:00 Nystatin (Nystop) 1 south TID TP Last administered on 07/23/18 08:51; Start at 21:00 Sodium Bicarbonate (Sodium Bicarbonate) 650 mg BID PO Last administered on 08:49; Start 07/22/18 at 21:00 Vitamin D (Vitamin D3) 1,000 unit DAILY PO Last administered on 07/23/18 08:48 ; Start 07/23/18 at 09:00 Dorzolamide HCl (Trusopt) 1 drop BID OU Last administered on 07/23/18 08:51; Start 07/22/18 at 21:00 Insulin Glargine (Lantus) 15 units QHS SQ Last administered on 07/22/18 20:33; Start 07/22/18 at 21:00 Latanoprost (Xalatan) 1 drop QHS OU Last administered on 07/22/18 20:33; Start 07/22/18 at 21:00 Cetirizine HCl (ZyrTEC) 10 mg PRN DAILY PRN PO ALLERGIES; Start 07/22/18 at 17: 15 Multivitamins (Thera M Plus) 1 tab DAILY PO Last administered on 07/23/18 08:48 ; Start 07/23/18 at 09:00 Polyethylene Glycol (miraLAX PACKET) 17 gm PRN DAILY PRN PO CONSTIPATION; Start 07/22/18 at 17:16 Lisinopril (Prinivil) 40 mg DAILY PO Last administered on 07/23/18 08:50; Start 07/22/18 at 17:30 Sertraline HCl (Zoloft) 25 mg DAILY PO Last administered on 07/23/18 08:46; Start 07/23/18 at 09:00 Simethicone (Gas-X) 80 mg PRN AFTMEALHC PRN PO GAS / BLOATING; Start 07/22/18 at 17:30 Spironolactone (Aldactone) 25 mg DAILY PO Last administered on 07/23/18 08:50; Start 07/23/18 at 09:00 Albuterol Sulfate (Ventolin Neb Soln) 2.5 mg PRN Q6HRS PRN NEB SHORTNESS OF BREATH; Start 07/22/18 at 17:00 Insulin Human Lispro (HumaLOG) 0-9 UNITS TIDWMEALS SQ ; Start 07/22/18 at 17:00 Dextrose (Dextrose 50%-Water Syringe) 12.5 gm PRN Q15MIN PRN IV SEE COMMENTS; Start 07/22/18 at 17:00 Timolol Maleate (Timoptic 0.5% Ophth) 1 drop BID OU Last administered on 08:51; Start 07/22/18 at 21:00 Active Scripts Active Proair Hfa (Albuterol Sulfate) 8.5 Gm Hfa.aer.ad 2.5 Mg NEB PRN Q6HRS PRN 14 Days Reported Levofloxacin 750 Mg Tablet 750 Mg PO QODAY 2 Days Hydrocodone-Apap 7.5-325 (Hydrocodone Bit/Acetaminophen) 1 Tab Tablet 1 Tab PO PRN Q6HRS PRN Theragran-M Premier 50+ Caplet (Mv-Mn/Fa/Coq10/Lycopene/Lutein) 1 Each Tablet 1 Each PO DAILY Nystatin 15 Gm Powder 15 Gm TP TID Hydrocodone-Apap 7.5-325 (Hydrocodone Bit/Acetaminophen) 1 Tab Tablet 1 Tab PO TID Simethicone 100 Ml Liquid 30 Ml MC PRN QID PRN Loratadine 10 Mg Tablet 1 Tab PO DAILY PRN Voltaren (Diclofenac Sodium) 100 Gm Gel..gram. 2 Gm TP QID PRN Clotrimazole 15 Gm Cream..g. 1 South TP BID PRN Tylenol (Acetaminophen) 325 Mg Tablet 2 Tab PO PRN QID PRN Nizoral (Ketoconazole) 120 Ml Shampoo 1 South TP TWICE WEEKLY Gabapentin (Gabapentin) 300 Mg Capsule 300 Mg PO TID Furosemide 40 Mg Tablet 1 Tab PO DAILY Fluticasone Propionate Nasal [place] (Fluticasone Propionate) 16 Gm [place].susp 2 [place] NS DAILY Aspirin Ec (Aspirin) 81 Mg Tablet.dr 1 Tab PO DAILY Tussin Dm Clear Liquid (Guaifenesin/Dextromethorphan) 118 Ml Syrup 118 Ml PO QID PRN Miralax (Polyethylene Glycol 3350) 17 Gm Powd.pack 1 Packet PO DAILY PRN Sodium Bicarbonate 650 Mg Tablet 1 Tab PO BID Lantus (Insulin Glargine,Hum.rec.anlog) 100 Unit/1 Ml Vial 15 Unit SQ HS Novolog (Insulin Aspart) 100 Unit/1 Ml Cartridge 0 SQ DAILYWSUP sliding scale <160=0 units 160-200=4 units 201-250=6 units 251-300=8 units 301-350=10 units 351-400=12 units >400=call Nitrostat (Nitroglycerin) 0.4 Mg Tab.subl 0.4 Mg SL PRN Q5MIN PRN Dorzolamide-Timolol Eye Drops (Dorzolamide Hcl/Timolol Maleat) 10 Ml Drops 1 Drop EACHEYE BID Vitamin D (Cholecalciferol (Vitamin D3)) 1,000 Unit Capsule 1 Cap PO DAILY Spironolactone 25 Mg Tablet 1 Tab PO DAILY Sertraline Hcl 25 Mg Tablet 25 Mg PO DAILY Latanoprost 2.5 Ml Drops 2.5 Ml OP HS Quinapril Hcl 40 Mg Tablet 40 Mg PO DAILY Vitals/I & O Vital Sign - Last 24 Hours 07/22/18 07/22/18 07/22/18 07/22/18 11:02 12:00 13:00 14:00 Temp 97.5 97.5 Pulse 85 74 86 82 Resp 20 15 19 14 B/P (MAP) 140/58 (85) 105/56 (72) 116/58 (77) 129/57 (81) Pulse Ox 96 91 99 95 O2 Delivery Room Air Nasal Cannula Nasal Cannula Nasal Cannula O2 Flow Rate 2.0 2.0 2.0 07/22/18 07/22/18 07/22/18 07/22/18 15:00 17:00 18:38 19:00 Temp 97.5 98.6 97.5 98.6 Pulse 82 82 84 Resp 18 18 B/P (MAP) 153/63 (93) 153/63 129/56 (80) Pulse Ox 97 95 O2 Delivery Nasal Cannula Nasal Cannula Nasal Cannula O2 Flow Rate 2.0 2.0 2.0 07/22/18 07/22/18 07/22/18 07/22/18 20:30 20:32 21:30 23:00 Temp 97.9 97.9 Pulse 71 Resp 18 B/P (MAP) 109/47 (67) Pulse Ox 97 O2 Delivery Nasal Cannula Nasal Cannula Room Air O2 Flow Rate 2.0 2.0 07/23/18 07/23/18 07/23/18 07/23/18 03:00 07:36 08:48 08:50 Temp 97.9 98.3 97.9 98.3 Pulse 68 84 84 Resp 18 B/P (MAP) 109/36 (60) 136/58 (84) 136/58 Pulse Ox 98 97 97 O2 Delivery Room Air Room Air Room Air O2 Flow Rate 2.0 07/23/18 09:55 Pulse Ox 97 O2 Delivery Room Air O2 Flow Rate 2.0 Intake and Output 07/22/18 07/22/18 07/23/18 14:59 22:59 06:59 Intake Total 1013 ml Balance 1013 ml EMILY LUNDBERG MD Jul 23, 2018 10:32
[2018-07-23 11:44] VITALS: BP 119/58
[2018-07-23 12:35] LABS: BASO % 0 % (0-3); EOS # 0.1 x10^3/uL (0.0-0.7); EOS % 1 % (0-3); HEMATOCRIT 35.4 % (36.0-47.0); HEMOGLOBIN 11.5 g/dL (12.0-15.5); LYMPH # 1.8 x10^3/uL (1.0-4.8); LYMPH % 28 % (24-48); MEAN CORPUSCULAR HEMOGLOBIN 30 pg (25-35); MEAN CORPUSCULAR HGB CONC 33 g/dL (31-37); MEAN CORPUSCULAR VOLUME 93 fL (79-100); MONO # 0.5 x10^3/uL (0.0-1.1); MONO % 7 % (0-9); NEUT # 4.3 x10^3uL (1.8-7.7); NEUT % 64 % (31-73); PLATELET COUNT 313 x10^3/uL (140-400); RED CELL DISTRIBUTION WIDTH 15.6 % (11.5-14.5); WHITE BLOOD COUNT 6.7 x10^3/uL (4.0-11.0)
[2018-07-23 12:51] LABS: CALCIUM 8.9 mg/dL (8.5-10.1); CREATININE 1.6 mg/dL (0.6-1.0); GFR 30.4; POTASSIUM 4.4 mmol/L (3.5-5.1)
[2018-07-23] MEDS: cefTRIAXone IV Push 1 GM VIAL. IVP SCH (13:18)
--- NOTE | 2018-07-23 13:52 | PDOC2 ---
CONSULT Date of Consult Date of Consult DATE: 07/23/18 TIME: 13:46 Reason for Consult Reason for Consult: Heart failure Referring Physician Referring Physician: Dr. Mittal Identification/Chief Complaint Chief Complaint weakness Source Source: Chart review, Patient History of Present Illness Reason for Visit: The patient is an 88-year-old female with multiple medical problems who was admitted from her halfway after findings of systolic pressure in the 80s and creatinine elevated to 2.2. She has a history of chronic pain and reported mild upper shoulder pain on examination today. She has a history of hypertension and hyperlipidemia. It is uncertain if she has a documented history of coronary disease. An echocardiogram performed in 2017 showed normal left ventricular systolic function with no significant valvular disease. She is been treated for acute renal failure and urinary traction and her hypotension and reports feeling slightly better today. Past Medical History Cardiovascular: HTN, Hyperlipidemia Pulmonary: COPD CENTRAL NERVOUS SYSTEM: CVA GI: Diverticulosis, Other Heme/Onc: No pertinent hx Hepatobiliary: No pertinent hx Psych: Anxiety Musculoskeletal: Osteoarthritis Rheumatologic: No pertinent hx Infectious disease: No pertinent hx Renal/: Chronic renal insuff, UTI, Urinary Incontinence, Other Endocrine: Diabetes Past Surgical History Past Surgical History: Cholecystectomy, Total hip replacement, Tonsillectomy, Hysterectomy Family History Family History: Cancer Social History Social History: Other No ALCOHOL: none Drugs: None Current Problem List Problem List Problems Medical Problems: (1) Acute renal failure Status: Acute (2) Hypotension Status: Acute (3) UTI (urinary tract infection) Status: Acute Current Medications Current Medications Current Medications Sodium Chloride 1,000 ml @ 1,000 mls/hr 1X ONCE IV Last administered on at 13:56; Start 07/22/18 at 13:30; Stop 07/22/18 at 14:29; Status DC Ceftriaxone Sodium (Rocephin) 1 gm 1X ONCE IVP Last administered on 07/22/18at 13:57; Start 07/22/18 at 13:30; Stop 07/22/18 at 13:31; Status DC Ondansetron HCl (Zofran) 4 mg PRN Q8HRS PRN IV NAUSEA/VOMITING; Start 07/22/18 at 13:30; Stop 07/23/18 at 13:29; Status DC Sodium Chloride 1,000 ml @ 75 mls/hr 1X ONCE IV Last administered on at 16:33; Start 07/22/18 at 13:30; Stop 07/23/18 at 02:49; Status DC Ceftriaxone Sodium (Rocephin) 1 gm Q24H IVP Last administered on 07/23/18 13:18 ; Start 07/23/18 at 13:00 Influenza Virus Vaccine (Afluria Trivalent 2096-1473 Syringe) 0.5 ml ONCE ONCE VAX IM Last administered on 07/22/18 16:41; Start 07/22/18 at 16:00; Stop at 16:01; Status DC Acetaminophen (Tylenol) 650 mg PRN QID PRN PO MILD PAIN; Start 07/22/18 at 17:00 Diclofenac Sodium (Voltaren) 2 south PRN QID PRN TP arthritis; Start 07/22/18 at 17:00 Fluticasone Propionate (Flonase) 2 spray DAILY NS Last administered on 08:51; Start 07/23/18 at 09:00 Furosemide (Lasix) 40 mg DAILY PO Last administered on 07/23/18 08:48; Start at 09:00 Gabapentin (Neurontin) 300 mg TID PO Last administered on 07/23/18 08:48; Start 07/22/18 at 21:00; Stop 07/23/18 at 11:25; Status DC Guaifenesin (Robitussin Dm) 10 ml PRN QID PRN PO COUGH; Start 07/22/18 at 17:00 Acetaminophen/ Hydrocodone Bitart (Lortab 7.5/325) 1 tab PRN Q6HRS PRN PO MODERATE PAIN Last administered on 07/23/18 13:34; Start 07/22/18 at 17:00 Acetaminophen/ Hydrocodone Bitart (Lortab 7.5/325) 1 tab TID PO Last administered on 07/23/18 08:48; Start 07/22/18 at 21:00 Nitroglycerin (Nitrostat) 0.4 mg PRN Q5MIN PRN SL CHEST PAIN; Start 07/22/18 at 17:00 Nystatin (Nystop) 1 south TID TP Last administered on 07/23/18 13:35; Start at 21:00 Sodium Bicarbonate (Sodium Bicarbonate) 650 mg BID PO Last administered on 08:49; Start 07/22/18 at 21:00 Vitamin D (Vitamin D3) 1,000 unit DAILY PO Last administered on 07/23/18 08:48 ; Start 07/23/18 at 09:00 Dorzolamide HCl (Trusopt) 1 drop BID OU Last administered on 07/23/18 08:51; Start 07/22/18 at 21:00 Insulin Glargine (Lantus) 15 units QHS SQ Last administered on 07/22/18 20:33; Start 07/22/18 at 21:00 Latanoprost (Xalatan) 1 drop QHS OU Last administered on 07/22/18 20:33; Start 07/22/18 at 21:00 Cetirizine HCl (ZyrTEC) 10 mg PRN DAILY PRN PO ALLERGIES; Start 07/22/18 at 17: 15 Multivitamins (Thera M Plus) 1 tab DAILY PO Last administered on 07/23/18 08:48 ; Start 07/23/18 at 09:00 Polyethylene Glycol (miraLAX PACKET) 17 gm PRN DAILY PRN PO CONSTIPATION Last administered on 07/23/18 13:33; Start 07/22/18 at 17:16 Lisinopril (Prinivil) 40 mg DAILY PO Last administered on 07/23/18 08:50; Start 07/22/18 at 17:30 Sertraline HCl (Zoloft) 25 mg DAILY PO Last administered on 07/23/18 08:46; Start 07/23/18 at 09:00 Simethicone (Gas-X) 80 mg PRN AFTMEALHC PRN PO GAS / BLOATING; Start 07/22/18 at 17:30 Spironolactone (Aldactone) 25 mg DAILY PO Last administered on 07/23/18 08:50; Start 07/23/18 at 09:00 Albuterol Sulfate (Ventolin Neb Soln) 2.5 mg PRN Q6HRS PRN NEB SHORTNESS OF BREATH; Start 07/22/18 at 17:00 Insulin Human Lispro (HumaLOG) 0-9 UNITS TIDWMEALS SQ Last administered on 12:22; Start 07/22/18 at 17:00 Dextrose (Dextrose 50%-Water Syringe) 12.5 gm PRN Q15MIN PRN IV SEE COMMENTS; Start 07/22/18 at 17:00 Timolol Maleate (Timoptic 0.5% Ophth) 1 drop BID OU Last administered on at 08:51; Start 07/22/18 at 21:00 Lactobacillus Rhamnosus (Culturelle) 1 cap BID PO ; Start 07/23/18 at 21:00 Gabapentin (Neurontin) 300 mg DAILY PO ; Start 07/24/18 at 09:00 Active Scripts Active Proair Hfa (Albuterol Sulfate) 8.5 Gm Hfa.aer.ad 2.5 Mg NEB PRN Q6HRS PRN 14 Days Reported Levofloxacin 750 Mg Tablet 750 Mg PO QODAY 2 Days Hydrocodone-Apap 7.5-325 (Hydrocodone Bit/Acetaminophen) 1 Tab Tablet 1 Tab PO PRN Q6HRS PRN Theragran-M Premier 50+ Caplet (Mv-Mn/Fa/Coq10/Lycopene/Lutein) 1 Each Tablet 1 Each PO DAILY Nystatin 15 Gm Powder 15 Gm TP TID Hydrocodone-Apap 7.5-325 (Hydrocodone Bit/Acetaminophen) 1 Tab Tablet 1 Tab PO TID Simethicone 100 Ml Liquid 30 Ml MC PRN QID PRN Loratadine 10 Mg Tablet 1 Tab PO DAILY PRN Voltaren (Diclofenac Sodium) 100 Gm Gel..gram. 2 Gm TP QID PRN Clotrimazole 15 Gm Cream..g. 1 South TP BID PRN Tylenol (Acetaminophen) 325 Mg Tablet 2 Tab PO PRN QID PRN Nizoral (Ketoconazole) 120 Ml Shampoo 1 South TP TWICE WEEKLY Gabapentin (Gabapentin) 300 Mg Capsule 300 Mg PO TID Furosemide 40 Mg Tablet 1 Tab PO DAILY Fluticasone Propionate Nasal [place] (Fluticasone Propionate) 16 Gm [place].susp 2 [place] NS DAILY Aspirin Ec (Aspirin) 81 Mg Tablet.dr 1 Tab PO DAILY Tussin Dm Clear Liquid (Guaifenesin/Dextromethorphan) 118 Ml Syrup 118 Ml PO QID PRN Miralax (Polyethylene Glycol 3350) 17 Gm Powd.pack 1 Packet PO DAILY PRN Sodium Bicarbonate 650 Mg Tablet 1 Tab PO BID Lantus (Insulin Glargine,Hum.rec.anlog) 100 Unit/1 Ml Vial 15 Unit SQ HS Novolog (Insulin Aspart) 100 Unit/1 Ml Cartridge 0 SQ DAILYWSUP sliding scale <160=0 units 160-200=4 units 201-250=6 units 251-300=8 units 301-350=10 units 351-400=12 units >400=call Nitrostat (Nitroglycerin) 0.4 Mg Tab.subl 0.4 Mg SL PRN Q5MIN PRN Dorzolamide-Timolol Eye Drops (Dorzolamide Hcl/Timolol Maleat) 10 Ml Drops 1 Drop EACHEYE BID Vitamin D (Cholecalciferol (Vitamin D3)) 1,000 Unit Capsule 1 Cap PO DAILY Spironolactone 25 Mg Tablet 1 Tab PO DAILY Sertraline Hcl 25 Mg Tablet 25 Mg PO DAILY Latanoprost 2.5 Ml Drops 2.5 Ml OP HS Quinapril Hcl 40 Mg Tablet 40 Mg PO DAILY Allergies Allergies: Coded Allergies: codeine (Verified Allergy, Intermediate, Rash, 06/17/18) TOLERATES LORTAB ROS General: YES: Fatigue, Malaise Respiratory: YES: SOB with excertion Physical Exam General: mild distress HEENT: Atraumatic Lungs: Other (mildly decreased breath sounds) Heart: Regular rate Abdomen: Normal bowel sounds Vitals VITALS Vital Signs Date Time Temp Pulse Resp B/P (MAP) Pulse Ox O2 Delivery O2 Flow Rate FiO2 07/23/18 13:34 94 Nasal Cannula 2.0 07/23/18 11:44 97.7 78 18 119/58 (78) 97.7 Labs Labs Laboratory Tests Test 07/22/18 10:57 07/22/18 11:20 07/22/18 12:15 07/22/18 15:11 Glucose (Fingerstick) 58 mg/dL (70-99) 80 mg/dL (70-99) Urine Collection Type Unknown Urine Color Yellow Urine Clarity Clear Urine pH 7.0 Urine Specific [place] 1.015 Urine Protein Negative mg/dL (NEG-TRACE) Urine Glucose (UA) Negative mg/dL (NEG) Urine Ketones (Stick) Negative mg/dL (NEG) Urine Blood Negative (NEG) Urine Nitrite Negative (NEG) Urine Bilirubin Negative (NEG) Urine Urobilinogen Dipstick 0.2 mg/dL (0.2 mg/dL) Urine Leukocyte Esterase Large (NEG) Urine RBC 0 /HPF (0-2) Urine WBC Tntc /HPF (0-4) Urine Squamous Epithelial Cells Many /LPF Urine Bacteria Moderate /HPF (0-FEW) White Blood Count 9.2 x10^3/uL (4.0-11.0) Red Blood Count 3.84 x10^6/uL (3.50-5.40) Hemoglobin 11.5 g/dL (12.0-15.5) Hematocrit 35.5 % (36.0-47.0) Mean Corpuscular Volume 93 fL (79-100) Mean Corpuscular Hemoglobin 30 pg (25-35) Mean Corpuscular Hemoglobin Concent 33 g/dL (31-37) Red Cell Distribution Width 15.4 % (11.5-14.5) Platelet Count 337 x10^3/uL (140-400) Neutrophils (%) (Auto) 69 % (31-73) Lymphocytes (%) (Auto) 22 % (24-48) Monocytes (%) (Auto) 8 % (0-9) Eosinophils (%) (Auto) 1 % (0-3) Basophils (%) (Auto) 1 % (0-3) Neutrophils # (Auto) 6.3 x10^3uL (1.8-7.7) Lymphocytes # (Auto) 2.0 x10^3/uL (1.0-4.8) Monocytes # (Auto) 0.7 x10^3/uL (0.0-1.1) Eosinophils # (Auto) 0.0 x10^3/uL (0.0-0.7) Basophils # (Auto) 0.1 x10^3/uL (0.0-0.2) Sodium Level 141 mmol/L (136-145) Potassium Level 4.7 mmol/L (3.5-5.1) Chloride Level 102 mmol/L (98-107) Carbon Dioxide Level 30 mmol/L (21-32) Anion Gap 9 (6-14) Blood Urea Nitrogen 37 mg/dL (7-20) Creatinine 2.0 mg/dL (0.6-1.0) Estimated GFR (Cockcroft-Gault) 23.5 BUN/Creatinine Ratio 19 (6-20) Glucose Level 111 mg/dL (70-99) Calcium Level 9.6 mg/dL (8.5-10.1) Magnesium Level 2.0 mg/dL (1.8-2.4) Total Bilirubin 0.4 mg/dL (0.2-1.0) Aspartate Amino Transf (AST/SGOT) 19 U/L (15-37) Alanine Aminotransferase (ALT/SGPT) 9 U/L (14-59) Alkaline Phosphatase 77 U/L (46-116) Creatine Kinase 62 U/L (26-192) Creatine Kinase MB (Mass) 2.2 ng/mL (0.0-3.6) Creatine Kinase MB Relative Index % (0-4) Troponin I Quantitative < 0.017 ng/mL (0.000-0.055) WL-Nwz-S-Type Natriuretic Peptide 826 pg/mL (0-449) Total Protein 7.1 g/dL (6.4-8.2) Albumin 2.8 g/dL (3.4-5.0) Albumin/Globulin Ratio 0.7 (1.0-1.7) Thyroid Stimulating Hormone (TSH) 1.152 uIU/mL (0.358-3.74) Test 07/22/18 20:32 07/23/18 07:04 07/23/18 11:02 07/23/18 12:00 Glucose (Fingerstick) 199 mg/dL (70-99) 81 mg/dL (70-99) 213 mg/dL (70-99) White Blood Count 6.7 x10^3/uL (4.0-11.0) Red Blood Count 3.80 x10^6/uL (3.50-5.40) Hemoglobin 11.5 g/dL (12.0-15.5) Hematocrit 35.4 % (36.0-47.0) Mean Corpuscular Volume 93 fL (79-100) Mean Corpuscular Hemoglobin 30 pg (25-35) Mean Corpuscular Hemoglobin Concent 33 g/dL (31-37) Red Cell Distribution Width 15.6 % (11.5-14.5) Platelet Count 313 x10^3/uL (140-400) Neutrophils (%) (Auto) 64 % (31-73) Lymphocytes (%) (Auto) 28 % (24-48) Monocytes (%) (Auto) 7 % (0-9) Eosinophils (%) (Auto) 1 % (0-3) Basophils (%) (Auto) 0 % (0-3) Neutrophils # (Auto) 4.3 x10^3uL (1.8-7.7) Lymphocytes # (Auto) 1.8 x10^3/uL (1.0-4.8) Monocytes # (Auto) 0.5 x10^3/uL (0.0-1.1) Eosinophils # (Auto) 0.1 x10^3/uL (0.0-0.7) Basophils # (Auto) 0.0 x10^3/uL (0.0-0.2) Sodium Level 140 mmol/L (136-145) Potassium Level 4.4 mmol/L (3.5-5.1) Chloride Level 103 mmol/L (98-107) Carbon Dioxide Level 31 mmol/L (21-32) Anion Gap 6 (6-14) Blood Urea Nitrogen 28 mg/dL (7-20) Creatinine 1.6 mg/dL (0.6-1.0) Estimated GFR (Cockcroft-Gault) 30.4 Glucose Level 154 mg/dL (70-99) Calcium Level 8.9 mg/dL (8.5-10.1) Laboratory Tests Test 07/22/18 15:11 07/22/18 20:32 07/23/18 07:04 07/23/18 11:02 Glucose (Fingerstick) 80 mg/dL (70-99) 199 mg/dL (70-99) 81 mg/dL (70-99) 213 mg/dL (70-99) Test 07/23/18 12:00 White Blood Count 6.7 x10^3/uL (4.0-11.0) Red Blood Count 3.80 x10^6/uL (3.50-5.40) Hemoglobin 11.5 g/dL (12.0-15.5) Hematocrit 35.4 % (36.0-47.0) Mean Corpuscular Volume 93 fL (79-100) Mean Corpuscular Hemoglobin 30 pg (25-35) Mean Corpuscular Hemoglobin Concent 33 g/dL (31-37) Red Cell Distribution Width 15.6 % (11.5-14.5) Platelet Count 313 x10^3/uL (140-400) Neutrophils (%) (Auto) 64 % (31-73) Lymphocytes (%) (Auto) 28 % (24-48) Monocytes (%) (Auto) 7 % (0-9) Eosinophils (%) (Auto) 1 % (0-3) Basophils (%) (Auto) 0 % (0-3) Neutrophils # (Auto) 4.3 x10^3uL (1.8-7.7) Lymphocytes # (Auto) 1.8 x10^3/uL (1.0-4.8) Monocytes # (Auto) 0.5 x10^3/uL (0.0-1.1) Eosinophils # (Auto) 0.1 x10^3/uL (0.0-0.7) Basophils # (Auto) 0.0 x10^3/uL (0.0-0.2) Sodium Level 140 mmol/L (136-145) Potassium Level 4.4 mmol/L (3.5-5.1) Chloride Level 103 mmol/L (98-107) Carbon Dioxide Level 31 mmol/L (21-32) Anion Gap 6 (6-14) Blood Urea Nitrogen 28 mg/dL (7-20) Creatinine 1.6 mg/dL (0.6-1.0) Estimated GFR (Cockcroft-Gault) 30.4 Glucose Level 154 mg/dL (70-99) Calcium Level 8.9 mg/dL (8.5-10.1) Images Images Chest x-ray with left basilar atelectasis Assessment/Plan Assessment/Plan 1. Acute kidney injury. Creatinine elevated to 2.2. Treated with fluids. Renal consultation pending. 2. Urinary tract infection. Antibiotics started. 3. Hypotension. Mildly improving with IV fluids. 4. COPD. Continue present treatments. 5. Probable mild diastolic heart failure. We'll recheck an echocardiogram. Unable to diuresis secondary to the patient's blood pressure and elevated creatinine. Thank you for allowing us to participate in the care of your patient. SILVINO AGUILAR MD Jul 23, 2018 13:52
[2018-07-23 15:14] VITALS: BP 118/82
[2018-07-23] MEDS ORDERED: AZITHRMYCN 500MG IVPB FOR OMNI 250 ML IV SCH (17:00)
[2018-07-23 19:14] VITALS: BP 118/43
[2018-07-23] MEDS: INSULIN GLARGINE 300 UNITS/3 ML INSULN.PEN. SQ SCH (20:25)
[2018-07-23] MEDS: LACTOBACILLUS RHAMNOSUS GG 1 CAPSULE. PO SCH (20:27)
[2018-07-23] MEDS: LATANOPROST 0.005% OPHTH SOLUTION 2.5ML BOTTLE. OU SCH (20:27)
[2018-07-23 22:00] VITALS: BP 106/53
[2018-07-24 02:22] VITALS: BP 129/55
--- NOTE | 2018-07-24 04:15 | CONS ---
DATE OF CONSULTATION: 07/23/2018 REQUESTING PHYSICIAN: Hospitalist. REASON FOR CONSULTATION: Renal failure. HISTORY OF PRESENT ILLNESS: This is an 88-year-old female with history of diabetes mellitus, hypertension and chronic kidney disease. She presented to the Nephrology office with blood pressure 80s/50s, was brought to the hospital. ED arrival, blood pressure was 140/58, heart rate 85. Creatinine was 2 and BUN 37. She was found to have urinary tract infection, has been placed on antibiotics for the same. PAST MEDICAL HISTORY: Diabetes mellitus; hypertension; chronic kidney disease, stage III; hyperlipidemia; glaucoma; reduced auditory acuity; COPD and coronary artery disease with angina. PAST SURGICAL HISTORY: Appendectomy, hysterectomy and left hip surgery. ALLERGIES: CODEINE. MEDICATIONS: Per med list. FAMILY HISTORY: Noncontributory. SOCIAL HISTORY: The patient resides with assistance. REVIEW OF SYSTEMS: No headache, sinus problem, nasal drainage, epistaxis, change in vision. She has reduced auditory acuity. No chest pain, shortness of breath, PND, orthopnea, dyspnea on exertion. No abdominal pain. No nausea, vomiting, diarrhea, seizures or malignancies. PHYSICAL EXAMINATION: GENERAL APPEARANCE: The patient awake, conversant, reduced auditory acuity is noted. NECK: No increased JVD. No thyromegaly, mass or adenopathy. LUNGS: Clear. CARDIAC: Without S3 or rub. ABDOMEN: Obese, bowel sounds present, nontender. EXTREMITIES: Without edema. NEUROLOGIC: Nonfocal, localizing. PSYCHIATRIC: Good attention to detail, appropriate affect. LABORATORY DATA: Sodium 140, potassium 4.4, chloride 103, CO2 31, BUN 20, creatinine 1.6, GFR is 30, presentation creatinine was 2.0 with GFR of 23.5. White count 6.7, hemoglobin 11.5 and hematocrit 35%. Urinalysis: Leukocyte esterase is large, moderate blood, too numerous to count white cells. IMPRESSION: 1. Chronic kidney disease, stage III - patient likely reestablishing at baseline. 2. Urinary tract infection. 3. Transient hypotension, potentially related to reduced intravascular volume and/or urinary tract infection. RECOMMENDATIONS: 1. Maintain fluid balance. 2. Treatment of urinary tract infection with antibiotics. 3. Likely able to discharge soon. JONATHAN BAUTISTA MD DR: JONATHON/jim JOB#: [id number] / [id number]
[2018-07-24 05:38] LABS: CALCIUM 8.8 mg/dL (8.5-10.1); CREATININE 1.5 mg/dL (0.6-1.0); GFR 32.8
[2018-07-24 07:00] VITALS: BP 139/64
[2018-07-24] MEDS: INSULIN LISPRO 300 UNITS/3 ML INSULN.PEN. SQ SCH ×3 (08:00→17:17)
--- NOTE | 2018-07-24 08:36 | RAD ---
EXAM: CHEST 1 VIEW History: Pneumonia COMPARISON: 07/22/2018 TECHNIQUE: Single portable radiograph of the chest FINDINGS: Low lung volumes and technique accentuates heart size and pulmonary vascularity.. Unchanged mild left lung base airspace opacities likely atelectasis or infiltrate. Mild elevation of the right hemidiaphragm. IMPRESSION: Unchanged exam. Electronically signed by: Ananda Faustin MD (07/24/2018 8:33 AM) [facility]
[2018-07-24] MEDS: NYSTATIN TOPICAL POWDER 15GM BOTTLE. TP SCH ×3 (09:24→21:30)
[2018-07-24] MEDS: DORZOLAMIDE 2% OPHTH SOLUTION 10ML BOTTLE. OU SCH ×2 (09:24→21:31)
[2018-07-24] MEDS: LATANOPROST 0.005% OPHTH SOLUTION 2.5ML BOTTLE. OU SCH ×2 (09:24→21:29)
[2018-07-24] MEDS: TIMOLOL 0.5% OPHTH SOLUTION 5ML BOTTLE. OU SCH ×2 (09:24→21:30)
[2018-07-24] MEDS: FLUTICASONE 50MCG/NASAL SPRAY 16GM BOTTLE. NS SCH (09:24)
[2018-07-24] MEDS: HYDROcodone/APAP 7.5/325MG 1 TAB TABLET PO SCH ×3 (09:25→21:30)
[2018-07-24] MEDS: LACTOBACILLUS RHAMNOSUS GG 1 CAPSULE. PO SCH ×2 (09:25→21:31)
[2018-07-24] MEDS: SPIRONOLACTONE 25 MG TABLET PO SCH (09:25)
[2018-07-24] MEDS: GABAPENTIN 300 MG CAPSULE. PO SCH (09:26)
[2018-07-24] MEDS: CHOLECALCIFEROL (VITAMIN D3) 1,000 UNIT TABLET PO SCH (09:26)
[2018-07-24] MEDS: SODIUM BICARBONATE 650 MG TABLET. PO SCH ×2 (09:26→21:30)
[2018-07-24] MEDS: LISINOPRIL 20 MG TABLET PO SCH (09:26)
[2018-07-24] MEDS: SERTRALINE 25 MG TABLET. PO SCH (09:26)
[2018-07-24] MEDS: MULTIVITAMIN with MINERAL TABLET. PO SCH (09:27)
[2018-07-24] MEDS: FUROSEMIDE 40 MG TABLET. PO SCH (09:27)
--- NOTE | 2018-07-24 10:10 | PDOC ---
PROGRESS NOTES Subjective Subjective Patient seen and examined Objective Objective Vital Signs Date Time Temp Pulse Resp B/P (MAP) Pulse Ox O2 Delivery O2 Flow Rate FiO2 07/24/18 09:26 65 139/64 07/24/18 09:25 22 Nasal Cannula 2.0 07/24/18 07:00 97.9 97 97.9 Intake and Output 07/24/18 07:00 Intake Total 1350 ml Output Total 3 ml Balance 1347 ml Intake Oral 1100 ml IV Total 250 ml Output Urine Total 3 ml # Voids 5 # Bowel Movements 1 Physical Exam Abdomen: Normal bowel sounds Heart: Regular rate General: No acute distress Lungs: Other (slightly decreased breath sounds) Assessment Assessment Problems Medical Problems: (1) Acute renal failure Status: Acute (2) Hypotension Status: Acute (3) UTI (urinary tract infection) Status: Acute 1. Acute kidney injury. Creatinine improved at 1.5. Followed by renal. 2. Urinary tract infection. Antibiotics started. 3. Hypotension. Improved. 4. COPD. Continue present treatments. 5. Probable mild diastolic heart failure. ECHO pending. Comment Review of Relevant I have reviewed the following items danny (where applicable) has been applied. Labs Laboratory Tests Test 07/22/18 10:57 07/22/18 11:20 07/22/18 12:15 07/22/18 15:11 Glucose (Fingerstick) 58 mg/dL (70-99) 80 mg/dL (70-99) Urine Collection Type Unknown Urine Color Yellow Urine Clarity Clear Urine pH 7.0 Urine Specific [place] 1.015 Urine Protein Negative mg/dL (NEG-TRACE) Urine Glucose (UA) Negative mg/dL (NEG) Urine Ketones (Stick) Negative mg/dL (NEG) Urine Blood Negative (NEG) Urine Nitrite Negative (NEG) Urine Bilirubin Negative (NEG) Urine Urobilinogen Dipstick 0.2 mg/dL (0.2 mg/dL) Urine Leukocyte Esterase Large (NEG) Urine RBC 0 /HPF (0-2) Urine WBC Tntc /HPF (0-4) Urine Squamous Epithelial Cells Many /LPF Urine Bacteria Moderate /HPF (0-FEW) White Blood Count 9.2 x10^3/uL (4.0-11.0) Red Blood Count 3.84 x10^6/uL (3.50-5.40) Hemoglobin 11.5 g/dL (12.0-15.5) Hematocrit 35.5 % (36.0-47.0) Mean Corpuscular Volume 93 fL (79-100) Mean Corpuscular Hemoglobin 30 pg (25-35) Mean Corpuscular Hemoglobin Concent 33 g/dL (31-37) Red Cell Distribution Width 15.4 % (11.5-14.5) Platelet Count 337 x10^3/uL (140-400) Neutrophils (%) (Auto) 69 % (31-73) Lymphocytes (%) (Auto) 22 % (24-48) Monocytes (%) (Auto) 8 % (0-9) Eosinophils (%) (Auto) 1 % (0-3) Basophils (%) (Auto) 1 % (0-3) Neutrophils # (Auto) 6.3 x10^3uL (1.8-7.7) Lymphocytes # (Auto) 2.0 x10^3/uL (1.0-4.8) Monocytes # (Auto) 0.7 x10^3/uL (0.0-1.1) Eosinophils # (Auto) 0.0 x10^3/uL (0.0-0.7) Basophils # (Auto) 0.1 x10^3/uL (0.0-0.2) Sodium Level 141 mmol/L (136-145) Potassium Level 4.7 mmol/L (3.5-5.1) Chloride Level 102 mmol/L (98-107) Carbon Dioxide Level 30 mmol/L (21-32) Anion Gap 9 (6-14) Blood Urea Nitrogen 37 mg/dL (7-20) Creatinine 2.0 mg/dL (0.6-1.0) Estimated GFR (Cockcroft-Gault) 23.5 BUN/Creatinine Ratio 19 (6-20) Glucose Level 111 mg/dL (70-99) Calcium Level 9.6 mg/dL (8.5-10.1) Magnesium Level 2.0 mg/dL (1.8-2.4) Total Bilirubin 0.4 mg/dL (0.2-1.0) Aspartate Amino Transf (AST/SGOT) 19 U/L (15-37) Alanine Aminotransferase (ALT/SGPT) 9 U/L (14-59) Alkaline Phosphatase 77 U/L (46-116) Creatine Kinase 62 U/L (26-192) Creatine Kinase MB (Mass) 2.2 ng/mL (0.0-3.6) Creatine Kinase MB Relative Index % (0-4) Troponin I Quantitative < 0.017 ng/mL (0.000-0.055) JX-Res-F-Type Natriuretic Peptide 826 pg/mL (0-449) Total Protein 7.1 g/dL (6.4-8.2) Albumin 2.8 g/dL (3.4-5.0) Albumin/Globulin Ratio 0.7 (1.0-1.7) Thyroid Stimulating Hormone (TSH) 1.152 uIU/mL (0.358-3.74) Test 07/22/18 20:32 07/22/18 21:15 07/23/18 07:04 07/23/18 11:02 Glucose (Fingerstick) 199 mg/dL (70-99) 81 mg/dL (70-99) 213 mg/dL (70-99) Nasal Screen MRSA (PCR) Negative (Negative) Test 07/23/18 12:00 07/23/18 16:29 07/23/18 20:24 07/24/18 04:00 White Blood Count 6.7 x10^3/uL (4.0-11.0) Red Blood Count 3.80 x10^6/uL (3.50-5.40) Hemoglobin 11.5 g/dL (12.0-15.5) Hematocrit 35.4 % (36.0-47.0) Mean Corpuscular Volume 93 fL (79-100) Mean Corpuscular Hemoglobin 30 pg (25-35) Mean Corpuscular Hemoglobin Concent 33 g/dL (31-37) Red Cell Distribution Width 15.6 % (11.5-14.5) Platelet Count 313 x10^3/uL (140-400) Neutrophils (%) (Auto) 64 % (31-73) Lymphocytes (%) (Auto) 28 % (24-48) Monocytes (%) (Auto) 7 % (0-9) Eosinophils (%) (Auto) 1 % (0-3) Basophils (%) (Auto) 0 % (0-3) Neutrophils # (Auto) 4.3 x10^3uL (1.8-7.7) Lymphocytes # (Auto) 1.8 x10^3/uL (1.0-4.8) Monocytes # (Auto) 0.5 x10^3/uL (0.0-1.1) Eosinophils # (Auto) 0.1 x10^3/uL (0.0-0.7) Basophils # (Auto) 0.0 x10^3/uL (0.0-0.2) Sodium Level 140 mmol/L (136-145) 138 mmol/L (136-145) Potassium Level 4.4 mmol/L (3.5-5.1) 4.0 mmol/L (3.5-5.1) Chloride Level 103 mmol/L (98-107) 104 mmol/L (98-107) Carbon Dioxide Level 31 mmol/L (21-32) 26 mmol/L (21-32) Anion Gap 6 (6-14) 8 (6-14) Blood Urea Nitrogen 28 mg/dL (7-20) 25 mg/dL (7-20) Creatinine 1.6 mg/dL (0.6-1.0) 1.5 mg/dL (0.6-1.0) Estimated GFR (Cockcroft-Gault) 30.4 32.8 Glucose Level 154 mg/dL (70-99) 130 mg/dL (70-99) Calcium Level 8.9 mg/dL (8.5-10.1) 8.8 mg/dL (8.5-10.1) Glucose (Fingerstick) 157 mg/dL (70-99) 108 mg/dL (70-99) Test 07/24/18 07:37 Glucose (Fingerstick) 90 mg/dL (70-99) Laboratory Tests Test 07/23/18 11:02 07/23/18 12:00 07/23/18 16:29 07/23/18 20:24 Glucose (Fingerstick) 213 mg/dL (70-99) 157 mg/dL (70-99) 108 mg/dL (70-99) White Blood Count 6.7 x10^3/uL (4.0-11.0) Red Blood Count 3.80 x10^6/uL (3.50-5.40) Hemoglobin 11.5 g/dL (12.0-15.5) Hematocrit 35.4 % (36.0-47.0) Mean Corpuscular Volume 93 fL (79-100) Mean Corpuscular Hemoglobin 30 pg (25-35) Mean Corpuscular Hemoglobin Concent 33 g/dL (31-37) Red Cell Distribution Width 15.6 % (11.5-14.5) Platelet Count 313 x10^3/uL (140-400) Neutrophils (%) (Auto) 64 % (31-73) Lymphocytes (%) (Auto) 28 % (24-48) Monocytes (%) (Auto) 7 % (0-9) Eosinophils (%) (Auto) 1 % (0-3) Basophils (%) (Auto) 0 % (0-3) Neutrophils # (Auto) 4.3 x10^3uL (1.8-7.7) Lymphocytes # (Auto) 1.8 x10^3/uL (1.0-4.8) Monocytes # (Auto) 0.5 x10^3/uL (0.0-1.1) Eosinophils # (Auto) 0.1 x10^3/uL (0.0-0.7) Basophils # (Auto) 0.0 x10^3/uL (0.0-0.2) Sodium Level 140 mmol/L (136-145) Potassium Level 4.4 mmol/L (3.5-5.1) Chloride Level 103 mmol/L (98-107) Carbon Dioxide Level 31 mmol/L (21-32) Anion Gap 6 (6-14) Blood Urea Nitrogen 28 mg/dL (7-20) Creatinine 1.6 mg/dL (0.6-1.0) Estimated GFR (Cockcroft-Gault) 30.4 Glucose Level 154 mg/dL (70-99) Calcium Level 8.9 mg/dL (8.5-10.1) Test 07/24/18 04:00 07/24/18 07:37 Sodium Level 138 mmol/L (136-145) Potassium Level 4.0 mmol/L (3.5-5.1) Chloride Level 104 mmol/L (98-107) Carbon Dioxide Level 26 mmol/L (21-32) Anion Gap 8 (6-14) Blood Urea Nitrogen 25 mg/dL (7-20) Creatinine 1.5 mg/dL (0.6-1.0) Estimated GFR (Cockcroft-Gault) 32.8 Glucose Level 130 mg/dL (70-99) Calcium Level 8.8 mg/dL (8.5-10.1) Glucose (Fingerstick) 90 mg/dL (70-99) Microbiology 07/22/18 Urine Culture - Final, Complete 07/22/18 Urine Culture Result 1 ([place]) - Final, Complete Medications Current Medications Sodium Chloride 1,000 ml @ 1,000 mls/hr 1X ONCE IV Last administered on 13:56; Start 07/22/18 at 13:30; Stop 07/22/18 at 14:29; Status DC Ceftriaxone Sodium (Rocephin) 1 gm 1X ONCE IVP Last administered on 07/22/18 13:57; Start 07/22/18 at 13:30; Stop 07/22/18 at 13:31; Status DC Ondansetron HCl (Zofran) 4 mg PRN Q8HRS PRN IV NAUSEA/VOMITING; Start 07/22/18 at 13:30; Stop 07/23/18 at 13:29; Status DC Sodium Chloride 1,000 ml @ 75 mls/hr 1X ONCE IV Last administered on at 16:33; Start 07/22/18 at 13:30; Stop 07/23/18 at 02:49; Status DC Ceftriaxone Sodium (Rocephin) 1 gm Q24H IVP Last administered on 07/23/18 13:18 ; Start 07/23/18 at 13:00 Influenza Virus Vaccine (Afluria Trivalent [id number] Syringe) 0.5 ml ONCE ONCE VAX IM Last administered on 07/22/18at 16:41; Start 07/22/18 at 16:00; Stop at 16:01; Status DC Acetaminophen (Tylenol) 650 mg PRN QID PRN PO MILD PAIN; Start 07/22/18 at 17:00 Diclofenac Sodium (Voltaren) 2 south PRN QID PRN TP arthritis; Start 07/22/18 at 17:00 Fluticasone Propionate (Flonase) 2 spray DAILY NS Last administered on 09:24; Start 07/23/18 at 09:00 Furosemide (Lasix) 40 mg DAILY PO Last administered on 07/24/18 09:27; Start at 09:00 Gabapentin (Neurontin) 300 mg TID PO Last administered on 07/23/18 08:48; Start 07/22/18 at 21:00; Stop 07/23/18 at 11:25; Status DC Guaifenesin (Robitussin Dm) 10 ml PRN QID PRN PO COUGH; Start 07/22/18 at 17:00 Acetaminophen/ Hydrocodone Bitart (Lortab 7.5/325) 1 tab PRN Q6HRS PRN PO MODERATE PAIN Last administered on 07/23/18 13:34; Start 07/22/18 at 17:00 Acetaminophen/ Hydrocodone Bitart (Lortab 7.5/325) 1 tab TID PO Last administered on 07/24/18 09:25; Start 07/22/18 at 21:00 Nitroglycerin (Nitrostat) 0.4 mg PRN Q5MIN PRN SL CHEST PAIN; Start 07/22/18 at 17:00 Nystatin (Nystop) 1 south TID TP Last administered on 07/24/18 09:24; Start at 21:00 Sodium Bicarbonate (Sodium Bicarbonate) 650 mg BID PO Last administered on 09:26; Start 07/22/18 at 21:00 Vitamin D (Vitamin D3) 1,000 unit DAILY PO Last administered on 07/24/18 09:26 ; Start 07/23/18 at 09:00 Dorzolamide HCl (Trusopt) 1 drop BID OU Last administered on 07/24/18 09:24; Start 07/22/18 at 21:00 Insulin Glargine (Lantus) 15 units QHS SQ Last administered on 07/22/18 20:33; Start 07/22/18 at 21:00 Latanoprost (Xalatan) 1 drop QHS OU Last administered on 07/24/18 09:24; Start 07/22/18 at 21:00 Cetirizine HCl (ZyrTEC) 10 mg PRN DAILY PRN PO ALLERGIES; Start 07/22/18 at 17: 15 Multivitamins (Thera M Plus) 1 tab DAILY PO Last administered on 07/24/18 09:27 ; Start 07/23/18 at 09:00 Polyethylene Glycol (miraLAX PACKET) 17 gm PRN DAILY PRN PO CONSTIPATION Last administered on 07/23/18 13:33; Start 07/22/18 at 17:16 Lisinopril (Prinivil) 40 mg DAILY PO Last administered on 07/24/18 09:26; Start 07/22/18 at 17:30 Sertraline HCl (Zoloft) 25 mg DAILY PO Last administered on 07/24/18 09:26; Start 07/23/18 at 09:00 Simethicone (Gas-X) 80 mg PRN AFTMEALHC PRN PO GAS / BLOATING; Start 07/22/18 at 17:30 Spironolactone (Aldactone) 25 mg DAILY PO Last administered on 07/24/18 09:25; Start 07/23/18 at 09:00 Albuterol Sulfate (Ventolin Neb Soln) 2.5 mg PRN Q6HRS PRN NEB SHORTNESS OF BREATH; Start 07/22/18 at 17:00 Insulin Human Lispro (HumaLOG) 0-9 UNITS TIDWMEALS SQ Last administered on 16:57; Start 07/22/18 at 17:00 Dextrose (Dextrose 50%-Water Syringe) 12.5 gm PRN Q15MIN PRN IV SEE COMMENTS; Start 07/22/18 at 17:00 Timolol Maleate (Timoptic 0.5% Ophth) 1 drop BID OU Last administered on 09:24; Start 07/22/18 at 21:00 Lactobacillus Rhamnosus (Culturelle) 1 cap BID PO Last administered on 09:25; Start 07/23/18 at 21:00 Gabapentin (Neurontin) 300 mg DAILY PO Last administered on 07/24/18 09:26; Start 07/24/18 at 09:00 Azithromycin 250 ml @ 250 mls/hr DAILY IV Last administered on 07/23/18 16:54 ; Start 07/23/18 at 17:00; Stop 07/24/18 at 05:09; Status DC Azithromycin 500 mg/Sodium Chloride 250 ml @ 250 mls/hr Q24H IV ; Start at 17:00 Active Scripts Active Proair Hfa (Albuterol Sulfate) 8.5 Gm Hfa.aer.ad 2.5 Mg NEB PRN Q6HRS PRN 14 Days Reported Levofloxacin 750 Mg Tablet 750 Mg PO QODAY 2 Days Hydrocodone-Apap 7.5-325 (Hydrocodone Bit/Acetaminophen) 1 Tab Tablet 1 Tab PO PRN Q6HRS PRN Theragran-M Premier 50+ Caplet (Mv-Mn/Fa/Coq10/Lycopene/Lutein) 1 Each Tablet 1 Each PO DAILY Nystatin 15 Gm Powder 15 Gm TP TID Hydrocodone-Apap 7.5-325 (Hydrocodone Bit/Acetaminophen) 1 Tab Tablet 1 Tab PO TID Simethicone 100 Ml Liquid 30 Ml MC PRN QID PRN Loratadine 10 Mg Tablet 1 Tab PO DAILY PRN Voltaren (Diclofenac Sodium) 100 Gm Gel..gram. 2 Gm TP QID PRN Clotrimazole 15 Gm Cream..g. 1 South TP BID PRN Tylenol (Acetaminophen) 325 Mg Tablet 2 Tab PO PRN QID PRN Nizoral (Ketoconazole) 120 Ml Shampoo 1 South TP TWICE WEEKLY Gabapentin (Gabapentin) 300 Mg Capsule 300 Mg PO TID Furosemide 40 Mg Tablet 1 Tab PO DAILY Fluticasone Propionate Nasal [place] (Fluticasone Propionate) 16 Gm [place].susp 2 [place] NS DAILY Aspirin Ec (Aspirin) 81 Mg Tablet.dr 1 Tab PO DAILY Tussin Dm Clear Liquid (Guaifenesin/Dextromethorphan) 118 Ml Syrup 118 Ml PO QID PRN Miralax (Polyethylene Glycol 3350) 17 Gm Powd.pack 1 Packet PO DAILY PRN Sodium Bicarbonate 650 Mg Tablet 1 Tab PO BID Lantus (Insulin Glargine,Hum.rec.anlog) 100 Unit/1 Ml Vial 15 Unit SQ HS Novolog (Insulin Aspart) 100 Unit/1 Ml Cartridge 0 SQ DAILYWSUP sliding scale <160=0 units 160-200=4 units 201-250=6 units 251-300=8 units 301-350=10 units 351-400=12 units >400=call Nitrostat (Nitroglycerin) 0.4 Mg Tab.subl 0.4 Mg SL PRN Q5MIN PRN Dorzolamide-Timolol Eye Drops (Dorzolamide Hcl/Timolol Maleat) 10 Ml Drops 1 Drop EACHEYE BID Vitamin D (Cholecalciferol (Vitamin D3)) 1,000 Unit Capsule 1 Cap PO DAILY Spironolactone 25 Mg Tablet 1 Tab PO DAILY Sertraline Hcl 25 Mg Tablet 25 Mg PO DAILY Latanoprost 2.5 Ml Drops 2.5 Ml OP HS Quinapril Hcl 40 Mg Tablet 40 Mg PO DAILY Vitals/I & O Vital Sign - Last 24 Hours 07/23/18 07/23/18 07/23/18 07/23/18 11:44 13:34 14:34 15:14 Temp 97.7 97.7 97.7 97.7 Pulse 78 94 Resp 18 18 17 B/P (MAP) 119/58 (78) 118/82 (94) Pulse Ox 94 94 98 98 O2 Delivery Room Air Nasal Cannula Nasal Cannula Room Air O2 Flow Rate 2.0 2.0 07/23/18 07/23/18 07/23/18 07/23/18 19:14 20:00 20:27 21:27 Temp 98.5 98.5 Pulse 70 Resp 18 18 B/P (MAP) 118/43 (68) Pulse Ox 96 96 97 O2 Delivery Room Air Nasal Cannula Room Air Nasal Cannula O2 Flow Rate 2.0 2.0 07/23/18 07/24/18 07/24/18 07/24/18 22:00 02:22 07:00 09:25 Temp 97.5 98.8 97.9 97.5 98.8 97.9 Pulse 75 79 65 Resp 16 16 16 22 B/P (MAP) 106/53 (70) 129/55 (79) 139/64 (89) Pulse Ox 97 95 97 O2 Delivery Room Air Room Air Room Air Nasal Cannula O2 Flow Rate 2.0 07/24/18 09:26 Pulse 65 B/P (MAP) 139/64 Intake and Output 07/23/18 07/23/18 07/24/18 15:00 23:00 07:00 Intake Total 500 ml 650 ml 200 ml Output Total 2 ml 1 ml Balance 498 ml 649 ml 200 ml SILVINO AGUILAR MD Jul 24, 2018 10:10
[2018-07-24 11:00] VITALS: BP 141/72
--- NOTE | 2018-07-24 12:06 | PDOC ---
PROGRESS NOTES History of Present Illness History of Present Illness ASSESSMENT /PLAN: Acute on chronic renal failure azotemia urinary tract infection, / sirs anemia CONGESTIVE heart failure. Probable mild diastolic heart failure./ recheck an echocardiogram. Unable to diuresis secondary to the patient's blood pressure and elevated creatinine Possible pneumonia. admitted. IV antibiotics, consider stopping, no fever or cough IV fluid SUPPORT, daily labs, home meds, PT, OT, consult Nephrology, full code. Deep vein thrombosis prophylaxis, O2 per nasal cannula. Check TSH, urine culture, consult Cardiology RE CHF. incentive spirometry q 3 hrs Vitals Vitals Vital Signs Date Time Temp Pulse Resp B/P (MAP) Pulse Ox O2 Delivery O2 Flow Rate FiO2 07/24/18 11:00 97.3 68 20 141/72 (95) 97 Room Air 97.3 07/24/18 10:25 2.0 Physical Exam Physical Exam GENERAL: She is alert, cooperative, hard of hearing. HEART: Normal S1, S2. LUNGS: Clear. ABDOMEN: Soft, obese. EXTREMITIES: Trace edema. SKIN: No rashes. ENDOCRINE: No thyromegaly. LYMPHATICS: No cervical nodes. HEMATOPOIETIC: No bruising. PSYCHIATRIC: mood , anxious. General: Alert, Oriented X3, Cooperative, No acute distress Heart: Regular rate Lungs: Clear, Wheezing Abdomen: Normal bowel sounds Extremities: No cyanosis, No edema Labs LABS EXAM: CHEST 1 VIEW History: Pneumonia COMPARISON: 07/22/2018 TECHNIQUE: Single portable radiograph of the chest FINDINGS: Low lung volumes and technique accentuates heart size and pulmonary vascularity.. Unchanged mild left lung base airspace opacities likely atelectasis or infiltrate. Mild elevation of the right hemidiaphragm. IMPRESSION: Unchanged exam. Laboratory Tests Test 07/23/18 16:29 07/23/18 20:24 07/24/18 04:00 07/24/18 07:37 Glucose (Fingerstick) 157 mg/dL (70-99) 108 mg/dL (70-99) 90 mg/dL (70-99) Sodium Level 138 mmol/L (136-145) Potassium Level 4.0 mmol/L (3.5-5.1) Chloride Level 104 mmol/L (98-107) Carbon Dioxide Level 26 mmol/L (21-32) Anion Gap 8 (6-14) Blood Urea Nitrogen 25 mg/dL (7-20) Creatinine 1.5 mg/dL (0.6-1.0) Estimated GFR (Cockcroft-Gault) 32.8 Glucose Level 130 mg/dL (70-99) Calcium Level 8.8 mg/dL (8.5-10.1) Test 07/24/18 11:33 Glucose (Fingerstick) 190 mg/dL (70-99) Assessment and Plan Assessmemt and Plan Problems Medical Problems: (1) Acute renal failure Status: Acute (2) Hypotension Status: Acute (3) UTI (urinary tract infection) Status: Acute Comment Review of Relevant I have reviewed the following items danny (where applicable) has been applied. Labs Laboratory Tests Test 07/22/18 12:15 07/22/18 15:11 07/22/18 20:32 07/22/18 21:15 White Blood Count 9.2 x10^3/uL (4.0-11.0) Red Blood Count 3.84 x10^6/uL (3.50-5.40) Hemoglobin 11.5 g/dL (12.0-15.5) Hematocrit 35.5 % (36.0-47.0) Mean Corpuscular Volume 93 fL (79-100) Mean Corpuscular Hemoglobin 30 pg (25-35) Mean Corpuscular Hemoglobin Concent 33 g/dL (31-37) Red Cell Distribution Width 15.4 % (11.5-14.5) Platelet Count 337 x10^3/uL (140-400) Neutrophils (%) (Auto) 69 % (31-73) Lymphocytes (%) (Auto) 22 % (24-48) Monocytes (%) (Auto) 8 % (0-9) Eosinophils (%) (Auto) 1 % (0-3) Basophils (%) (Auto) 1 % (0-3) Neutrophils # (Auto) 6.3 x10^3uL (1.8-7.7) Lymphocytes # (Auto) 2.0 x10^3/uL (1.0-4.8) Monocytes # (Auto) 0.7 x10^3/uL (0.0-1.1) Eosinophils # (Auto) 0.0 x10^3/uL (0.0-0.7) Basophils # (Auto) 0.1 x10^3/uL (0.0-0.2) Sodium Level 141 mmol/L (136-145) Potassium Level 4.7 mmol/L (3.5-5.1) Chloride Level 102 mmol/L (98-107) Carbon Dioxide Level 30 mmol/L (21-32) Anion Gap 9 (6-14) Blood Urea Nitrogen 37 mg/dL (7-20) Creatinine 2.0 mg/dL (0.6-1.0) Estimated GFR (Cockcroft-Gault) 23.5 BUN/Creatinine Ratio 19 (6-20) Glucose Level 111 mg/dL (70-99) Calcium Level 9.6 mg/dL (8.5-10.1) Magnesium Level 2.0 mg/dL (1.8-2.4) Total Bilirubin 0.4 mg/dL (0.2-1.0) Aspartate Amino Transf (AST/SGOT) 19 U/L (15-37) Alanine Aminotransferase (ALT/SGPT) 9 U/L (14-59) Alkaline Phosphatase 77 U/L (46-116) Creatine Kinase 62 U/L (26-192) Creatine Kinase MB (Mass) 2.2 ng/mL (0.0-3.6) Creatine Kinase MB Relative Index % (0-4) Troponin I Quantitative < 0.017 ng/mL (0.000-0.055) SK-Lpy-N-Type Natriuretic Peptide 826 pg/mL (0-449) Total Protein 7.1 g/dL (6.4-8.2) Albumin 2.8 g/dL (3.4-5.0) Albumin/Globulin Ratio 0.7 (1.0-1.7) Thyroid Stimulating Hormone (TSH) 1.152 uIU/mL (0.358-3.74) Glucose (Fingerstick) 80 mg/dL (70-99) 199 mg/dL (70-99) Nasal Screen MRSA (PCR) Negative (Negative) Test 07/23/18 07:04 07/23/18 11:02 07/23/18 12:00 07/23/18 16:29 Glucose (Fingerstick) 81 mg/dL (70-99) 213 mg/dL (70-99) 157 mg/dL (70-99) White Blood Count 6.7 x10^3/uL (4.0-11.0) Red Blood Count 3.80 x10^6/uL (3.50-5.40) Hemoglobin 11.5 g/dL (12.0-15.5) Hematocrit 35.4 % (36.0-47.0) Mean Corpuscular Volume 93 fL (79-100) Mean Corpuscular Hemoglobin 30 pg (25-35) Mean Corpuscular Hemoglobin Concent 33 g/dL (31-37) Red Cell Distribution Width 15.6 % (11.5-14.5) Platelet Count 313 x10^3/uL (140-400) Neutrophils (%) (Auto) 64 % (31-73) Lymphocytes (%) (Auto) 28 % (24-48) Monocytes (%) (Auto) 7 % (0-9) Eosinophils (%) (Auto) 1 % (0-3) Basophils (%) (Auto) 0 % (0-3) Neutrophils # (Auto) 4.3 x10^3uL (1.8-7.7) Lymphocytes # (Auto) 1.8 x10^3/uL (1.0-4.8) Monocytes # (Auto) 0.5 x10^3/uL (0.0-1.1) Eosinophils # (Auto) 0.1 x10^3/uL (0.0-0.7) Basophils # (Auto) 0.0 x10^3/uL (0.0-0.2) Sodium Level 140 mmol/L (136-145) Potassium Level 4.4 mmol/L (3.5-5.1) Chloride Level 103 mmol/L (98-107) Carbon Dioxide Level 31 mmol/L (21-32) Anion Gap 6 (6-14) Blood Urea Nitrogen 28 mg/dL (7-20) Creatinine 1.6 mg/dL (0.6-1.0) Estimated GFR (Cockcroft-Gault) 30.4 Glucose Level 154 mg/dL (70-99) Calcium Level 8.9 mg/dL (8.5-10.1) Test 07/23/18 20:24 07/24/18 04:00 07/24/18 07:37 07/24/18 11:33 Glucose (Fingerstick) 108 mg/dL (70-99) 90 mg/dL (70-99) 190 mg/dL (70-99) Sodium Level 138 mmol/L (136-145) Potassium Level 4.0 mmol/L (3.5-5.1) Chloride Level 104 mmol/L (98-107) Carbon Dioxide Level 26 mmol/L (21-32) Anion Gap 8 (6-14) Blood Urea Nitrogen 25 mg/dL (7-20) Creatinine 1.5 mg/dL (0.6-1.0) Estimated GFR (Cockcroft-Gault) 32.8 Glucose Level 130 mg/dL (70-99) Calcium Level 8.8 mg/dL (8.5-10.1) Laboratory Tests Test 07/23/18 16:29 07/23/18 20:24 07/24/18 04:00 07/24/18 07:37 Glucose (Fingerstick) 157 mg/dL (70-99) 108 mg/dL (70-99) 90 mg/dL (70-99) Sodium Level 138 mmol/L (136-145) Potassium Level 4.0 mmol/L (3.5-5.1) Chloride Level 104 mmol/L (98-107) Carbon Dioxide Level 26 mmol/L (21-32) Anion Gap 8 (6-14) Blood Urea Nitrogen 25 mg/dL (7-20) Creatinine 1.5 mg/dL (0.6-1.0) Estimated GFR (Cockcroft-Gault) 32.8 Glucose Level 130 mg/dL (70-99) Calcium Level 8.8 mg/dL (8.5-10.1) Test 07/24/18 11:33 Glucose (Fingerstick) 190 mg/dL (70-99) Microbiology 07/22/18 Urine Culture - Final, Complete 07/22/18 Urine Culture Result 1 ([facility]) - Final, Complete Medications Current Medications Sodium Chloride 1,000 ml @ 1,000 mls/hr 1X ONCE IV Last administered on at 13:56; Start 07/22/18 at 13:30; Stop 07/22/18 at 14:29; Status DC Ceftriaxone Sodium (Rocephin) 1 gm 1X ONCE IVP Last administered on 07/22/18at 13:57; Start 07/22/18 at 13:30; Stop 07/22/18 at 13:31; Status DC Ondansetron HCl (Zofran) 4 mg PRN Q8HRS PRN IV NAUSEA/VOMITING; Start 07/22/18 at 13:30; Stop 07/23/18 at 13:29; Status DC Sodium Chloride 1,000 ml @ 75 mls/hr 1X ONCE IV Last administered on at 16:33; Start 07/22/18 at 13:30; Stop 07/23/18 at 02:49; Status DC Ceftriaxone Sodium (Rocephin) 1 gm Q24H IVP Last administered on 07/23/18 13:18 ; Start 07/23/18 at 13:00 Influenza Virus Vaccine (Afluria Trivalent [id number] Syringe) 0.5 ml ONCE ONCE VAX IM Last administered on 07/22/18 16:41; Start 07/22/18 at 16:00; Stop at 16:01; Status DC Acetaminophen (Tylenol) 650 mg PRN QID PRN PO MILD PAIN; Start 07/22/18 at 17:00 Diclofenac Sodium (Voltaren) 2 south PRN QID PRN TP arthritis; Start 07/22/18 at 17:00 Fluticasone Propionate (Flonase) 2 spray DAILY NS Last administered on 09:24; Start 07/23/18 at 09:00 Furosemide (Lasix) 40 mg DAILY PO Last administered on 07/24/18 09:27; Start at 09:00 Gabapentin (Neurontin) 300 mg TID PO Last administered on 07/23/18 08:48; Start 07/22/18 at 21:00; Stop 07/23/18 at 11:25; Status DC Guaifenesin (Robitussin Dm) 10 ml PRN QID PRN PO COUGH; Start 07/22/18 at 17:00 Acetaminophen/ Hydrocodone Bitart (Lortab 7.5/325) 1 tab PRN Q6HRS PRN PO MODERATE PAIN Last administered on 07/23/18 13:34; Start 07/22/18 at 17:00 Acetaminophen/ Hydrocodone Bitart (Lortab 7.5/325) 1 tab TID PO Last administered on 07/24/18 09:25; Start 07/22/18 at 21:00 Nitroglycerin (Nitrostat) 0.4 mg PRN Q5MIN PRN SL CHEST PAIN; Start 07/22/18 at 17:00 Nystatin (Nystop) 1 south TID TP Last administered on 07/24/18 09:24; Start at 21:00 Sodium Bicarbonate (Sodium Bicarbonate) 650 mg BID PO Last administered on 09:26; Start 07/22/18 at 21:00 Vitamin D (Vitamin D3) 1,000 unit DAILY PO Last administered on 07/24/18 09:26 ; Start 07/23/18 at 09:00 Dorzolamide HCl (Trusopt) 1 drop BID OU Last administered on 07/24/18 09:24; Start 07/22/18 at 21:00 Insulin Glargine (Lantus) 15 units QHS SQ Last administered on 07/22/18 20:33; Start 07/22/18 at 21:00 Latanoprost (Xalatan) 1 drop QHS OU Last administered on 07/24/18 09:24; Start 07/22/18 at 21:00 Cetirizine HCl (ZyrTEC) 10 mg PRN DAILY PRN PO ALLERGIES; Start 07/22/18 at 17: 15 Multivitamins (Thera M Plus) 1 tab DAILY PO Last administered on 07/24/18 09:27 ; Start 07/23/18 at 09:00 Polyethylene Glycol (miraLAX PACKET) 17 gm PRN DAILY PRN PO CONSTIPATION Last administered on 07/23/18 13:33; Start 07/22/18 at 17:16 Lisinopril (Prinivil) 40 mg DAILY PO Last administered on 07/24/18 09:26; Start 07/22/18 at 17:30 Sertraline HCl (Zoloft) 25 mg DAILY PO Last administered on 07/24/18 09:26; Start 07/23/18 at 09:00 Simethicone (Gas-X) 80 mg PRN AFTMEALHC PRN PO GAS / BLOATING; Start 07/22/18 at 17:30 Spironolactone (Aldactone) 25 mg DAILY PO Last administered on 07/24/18 09:25; Start 07/23/18 at 09:00 Albuterol Sulfate (Ventolin Neb Soln) 2.5 mg PRN Q6HRS PRN NEB SHORTNESS OF BREATH; Start 07/22/18 at 17:00 Insulin Human Lispro (HumaLOG) 0-9 UNITS TIDWMEALS SQ Last administered on at 16:57; Start 07/22/18 at 17:00 Dextrose (Dextrose 50%-Water Syringe) 12.5 gm PRN Q15MIN PRN IV SEE COMMENTS; Start 07/22/18 at 17:00 Timolol Maleate (Timoptic 0.5% Oph) 1 drop BID OU Last administered on at 09:24; Start 07/22/18 at 21:00 Lactobacillus Rhamnosus (Culturelle) 1 cap BID PO Last administered on 09:25; Start 07/23/18 at 21:00 Gabapentin (Neurontin) 300 mg DAILY PO Last administered on 07/24/18at 09:26; Start 07/24/18 at 09:00 Azithromycin 250 ml @ 250 mls/hr DAILY IV Last administered on 07/23/18at 16:54 ; Start 07/23/18 at 17:00; Stop 07/24/18 at 05:09; Status DC Azithromycin 500 mg/Sodium Chloride 250 ml @ 250 mls/hr Q24H IV ; Start at 17:00 Active Scripts Active Proair Hfa (Albuterol Sulfate) 8.5 Gm Hfa.aer.ad 2.5 Mg NEB PRN Q6HRS PRN 14 Days Reported Levofloxacin 750 Mg Tablet 750 Mg PO QODAY 2 Days Hydrocodone-Apap 7.5-325 (Hydrocodone Bit/Acetaminophen) 1 Tab Tablet 1 Tab PO PRN Q6HRS PRN Theragran-M Premier 50+ Caplet (Mv-Mn/Fa/Coq10/Lycopene/Lutein) 1 Each Tablet 1 Each PO DAILY Nystatin 15 Gm Powder 15 Gm TP TID Hydrocodone-Apap 7.5-325 (Hydrocodone Bit/Acetaminophen) 1 Tab Tablet 1 Tab PO TID Simethicone 100 Ml Liquid 30 Ml MC PRN QID PRN Loratadine 10 Mg Tablet 1 Tab PO DAILY PRN Voltaren (Diclofenac Sodium) 100 Gm Gel..gram. 2 Gm TP QID PRN Clotrimazole 15 Gm Cream..g. 1 South TP BID PRN Tylenol (Acetaminophen) 325 Mg Tablet 2 Tab PO PRN QID PRN Nizoral (Ketoconazole) 120 Ml Shampoo 1 South TP TWICE WEEKLY Gabapentin (Gabapentin) 300 Mg Capsule 300 Mg PO TID Furosemide 40 Mg Tablet 1 Tab PO DAILY Fluticasone Propionate Nasal [place] (Fluticasone Propionate) 16 Gm [place].susp 2 [place] NS DAILY Aspirin Ec (Aspirin) 81 Mg Tablet.dr 1 Tab PO DAILY Tussin Dm Clear Liquid (Guaifenesin/Dextromethorphan) 118 Ml Syrup 118 Ml PO QID PRN Miralax (Polyethylene Glycol 3350) 17 Gm Powd.pack 1 Packet PO DAILY PRN Sodium Bicarbonate 650 Mg Tablet 1 Tab PO BID Lantus (Insulin Glargine,Hum.rec.anlog) 100 Unit/1 Ml Vial 15 Unit SQ HS Novolog (Insulin Aspart) 100 Unit/1 Ml Cartridge 0 SQ DAILYWSUP sliding scale <160=0 units 160-200=4 units 201-250=6 units 251-300=8 units 301-350=10 units 351-400=12 units >400=call Nitrostat (Nitroglycerin) 0.4 Mg Tab.subl 0.4 Mg SL PRN Q5MIN PRN Dorzolamide-Timolol Eye Drops (Dorzolamide Hcl/Timolol Maleat) 10 Ml Drops 1 Drop EACHEYE BID Vitamin D (Cholecalciferol (Vitamin D3)) 1,000 Unit Capsule 1 Cap PO DAILY Spironolactone 25 Mg Tablet 1 Tab PO DAILY Sertraline Hcl 25 Mg Tablet 25 Mg PO DAILY Latanoprost 2.5 Ml Drops 2.5 Ml OP HS Quinapril Hcl 40 Mg Tablet 40 Mg PO DAILY Vitals/I & O Vital Sign - Last 24 Hours 07/23/18 07/23/18 07/23/18 07/23/18 13:34 14:34 15:14 19:14 Temp 97.7 98.5 97.7 98.5 Pulse 94 70 Resp 18 17 18 B/P (MAP) 118/82 (94) 118/43 (68) Pulse Ox 94 98 98 96 O2 Delivery Nasal Cannula Nasal Cannula Room Air Room Air O2 Flow Rate 2.0 2.0 07/23/18 07/23/18 07/23/18 07/24/18 20:00 20:27 22:00 02:22 Temp 97.5 98.8 97.5 98.8 Pulse 75 79 Resp 18 16 16 B/P (MAP) 106/53 (70) 129/55 (79) Pulse Ox 96 97 95 O2 Delivery Nasal Cannula Room Air Room Air Room Air O2 Flow Rate 2.0 07/24/18 07/24/18 07/24/18 07/24/18 07:00 09:25 09:26 10:25 Temp 97.9 97.9 Pulse 65 65 Resp 16 22 20 B/P (MAP) 139/64 (89) 139/64 Pulse Ox 97 97 O2 Delivery Room Air Nasal Cannula Nasal Cannula O2 Flow Rate 2.0 2.0 07/24/18 11:00 Temp 97.3 97.3 Pulse 68 Resp 20 B/P (MAP) 141/72 (95) Pulse Ox 97 O2 Delivery Room Air Intake and Output 07/23/18 07/23/18 07/24/18 15:00 23:00 07:00 Intake Total 500 ml 650 ml 200 ml Output Total 2 ml 1 ml Balance 498 ml 649 ml 200 ml EMILY LUNDBERG MD Jul 24, 2018 12:06
[2018-07-24] MEDS: cefTRIAXone IV Push 1 GM VIAL. IVP SCH (12:41)
[2018-07-24 15:00] VITALS: BP 148/53
[2018-07-24] MEDS: AZITHROMYCIN 500 MG in IV NORMAL SALINE 250ML 250 ML IV SCH (18:12)
[2018-07-24 19:00] VITALS: BP 135/75
[2018-07-24] MEDS: INSULIN GLARGINE 300 UNITS/3 ML INSULN.PEN. SQ SCH (21:34)
[2018-07-24 22:48] VITALS: BP 112/54
[2018-07-25 02:59] VITALS: BP 114/55
[2018-07-25 05:54] LABS: BASO # 0.1 x10^3/uL (0.0-0.2); BASO % 1 % (0-3); EOS # 0.1 x10^3/uL (0.0-0.7); EOS % 1 % (0-3); HEMATOCRIT 32.5 % (36.0-47.0); HEMOGLOBIN 10.9 g/dL (12.0-15.5); LYMPH # 2.7 x10^3/uL (1.0-4.8); LYMPH % 38 % (24-48); MEAN CORPUSCULAR HEMOGLOBIN 31 pg (25-35); MEAN CORPUSCULAR HGB CONC 33 g/dL (31-37); MEAN CORPUSCULAR VOLUME 92 fL (79-100); MONO # 0.6 x10^3/uL (0.0-1.1); MONO % 8 % (0-9); NEUT # 3.7 x10^3uL (1.8-7.7); NEUT % 52 % (31-73); PLATELET COUNT 280 x10^3/uL (140-400); RED BLOOD COUNT 3.55 x10^6/uL (3.50-5.40); RED CELL DISTRIBUTION WIDTH 15.5 % (11.5-14.5); WHITE BLOOD COUNT 7.2 x10^3/uL (4.0-11.0)
[2018-07-25 05:58] LABS: CALCIUM 8.7 mg/dL (8.5-10.1); CREATININE 1.3 mg/dL (0.6-1.0); GFR 38.7; POTASSIUM 4.1 mmol/L (3.5-5.1)
[2018-07-25 07:00] VITALS: BP 146/81
[2018-07-25] MEDS: INSULIN LISPRO 300 UNITS/3 ML INSULN.PEN. SQ SCH ×3 (08:00→18:05)
--- NOTE | 2018-07-25 08:39 | CARD ---
MR#: [id number] Date of Study: 07/24/2018 Ordering Physician: SILVINO AGUILAR, Referring Physician: RICKEY OROZCO Tech: Arielle Briseno ONUR APPROVED REPORT EXAM: Two-dimensional and M-mode echocardiogram with Doppler and color Doppler. Other Information Quality : AverageHR: 67bpm Rhythm : NSRTechnically limited study due to body habitus. INDICATION Congestive Heart Failure 2D DIMENSIONS Left Atrium(2D)3.5 (1.6-4.0cm)IVSd1.1 (0.7-1.1cm) Aortic Root(2D)3.1 (2.0-3.7cm)LVDd3.7 (3.9-5.9cm) LVOT Diameter2.0 (1.8-2.4cm)PWd1.1 (0.7-1.1cm) LVDs2.6 (2.5-4.0cm)FS (%) 29.5 % SV32.7 mlLVEF(%)57.4 (>50%) Aortic Valve AoV Peak Cheko.136.2cm/sAoV VTI26.6cm AO Peak GR.7.4mmHgLVOT Peak Cheko.96.0cm/s AO Mean GR.4mmHgAVA (VMAX)2.12cm2 Mitral Valve MV E Ntjmpvze78.2cm/sMV DECEL [id number] MV A Nzrzayjv33.5cm/sE/A Ratio0.7 MV A [id number] Tricuspid Valve TR P. Cvlyxcko297gr/sTR Peak Gr.29mmHg Pulmonary Vein S1 Cuaszfaj28.4cm/sD2 Hamfjqwo43.5cm/s LEFT VENTRICLE The left ventricle is normal size. There is normal left ventricular wall thickness. The left ventricu lar systolic function is normal and the ejection fraction is within normal range. EF 55% There is nor mal LV segmental wall motion. Septal motion suggestive of conduction defect. Transmitral Doppler flow pattern is Grade I-abnormal relaxation pattern. RIGHT VENTRICLE The right ventricle is normal size. There is normal right ventricular wall thickness. The right ventr icular systolic function is normal. ATRIA The left atrium size is normal. The right atrium size is normal. The interatrial septum is intact wit h no evidence for an atrial septal defect or patent foramen ovale as noted on 2-D or Doppler imaging. AORTIC VALVE The aortic valve is normal in structure and function. Doppler and Color Flow revealed no significant aortic regurgitation. There is no significant aortic valvular stenosis. There is no aortic valvular v egetation. MITRAL VALVE The mitral valve is mildly thickened. There is no evidence of mitral valve prolapse. There is no mitr al valve stenosis. Doppler and Color Flow revealed no mitral valve regurgitation noted. TRICUSPID VALVE The tricuspid valve is normal in structure and function. Doppler and Color Flow revealed mild tricusp id regurgitation. The pulmonary artery systolic pressure is estimated at 30 mmHg. There is borderline pulmonary hypertension. The PA pressure was estimated at 35 mmHg. There is no tricuspid valve prolap se or vegetation. There is no tricuspid valve stenosis. PULMONIC VALVE The pulmonary valve is normal in structure and function. Doppler and Color Flow revealed no pulmonic valvular regurgitation. There is no pulmonic valvular stenosis. GREAT VESSELS The aortic root is normal in size. The IVC is normal in size and collapses >50% with inspiration. PERICARDIAL EFFUSION There is no pleural effusion. There is no evidence of significant pericardial effusion. Critical Notification Critical Value: No <Conclusion> The left ventricular systolic function is normal and the ejection fraction is within normal range. EF 55% There is normal LV segmental wall motion. Septal motion suggestive of conduction defect. Signed by : Shorty Mendez, Electronically Approved : 07/25/2018 08:38:33
[2018-07-25] MEDS: DORZOLAMIDE 2% OPHTH SOLUTION 10ML BOTTLE. OU SCH ×2 (09:00→20:48)
[2018-07-25] MEDS: HYDROcodone/APAP 7.5/325MG 1 TAB TABLET PO SCH ×3 (09:08→20:47)
--- NOTE | 2018-07-25 10:06 | PDOC ---
PROGRESS NOTES History of Present Illness History of Present Illness ASSESSMENT /PLAN: Acute on chronic renal failure azotemia urinary tract infection, / sirs anemia CONGESTIVE heart failure. Probable mild diastolic heart failure./ recheck an echocardiogram. Unable to diuresis secondary to the patient's blood pressure and elevated creatinine Possible pneumonia. Bilateral groundglass opacities or mosaic attenuation is seen. Although this may be due to small airway disease or perfusion anomaly, favor associated infectious/inflammatory process. 4-6 mm right-sided lung nodules are seen. Per Fleischner Society guidelines for incidentally found solid nodules measuring less than 6 mm, no follow-up is necessary if patient is considered at low risk for lung cancer. HYPERTENSION, IMPROVED CONTROL admitted. IV antibiotics, consider stopping, However ct suggests infectious etiology 3/4 IV fluid SUPPORT, daily labs, home meds, PT, OT, consult Nephrology, full code. Deep vein thrombosis prophylaxis, O2 per nasal cannula. Check TSH, urine culture, consult Cardiology RE CHF. incentive spirometry q 3 hrs 3/.[address] snf bed PP tomorrow, off room air, cont iv antibiotics, remain weak with gait Vitals Vitals Vital Signs Date Time Temp Pulse Resp B/P (MAP) Pulse Ox O2 Delivery O2 Flow Rate FiO2 07/25/18 09:08 20 96 Nasal Cannula 2.0 07/25/18 07:00 97.9 72 146/81 (102) 97.9 Physical Exam Physical Exam GENERAL: She is alert, cooperative, hard of hearing. HEART: Normal S1, S2. LUNGS: Clear. distant BS ABDOMEN: Soft, obese. EXTREMITIES: Trace edema. SKIN: No rashes. ENDOCRINE: No thyromegaly. LYMPHATICS: No cervical nodes. HEMATOPOIETIC: No bruising. PSYCHIATRIC: mood , LESS anxious. General: Alert, Oriented X3, Cooperative, No acute distress Heart: Regular rate, Normal S1 Lungs: Clear Abdomen: Normal bowel sounds, Soft Extremities: No cyanosis, No edema, No tenderness/swelling Skin: No significant lesion Labs LABS ct chest 3/ FINDINGS: Lack of intravenous contrast limits evaluation of solid organs, vasculature, and lymph nodes. Chest: The heart is mildly enlarged. No pericardial effusion. Coronary artery calcifications are seen. Borderline prominence of the main left and right pulmonary arteries, nonspecific but may be seen with pulmonary arterial hypertension. Within the constraints of noncontrast exam, no mediastinal or hilar lymphadenopathy. No axillary lymphadenopathy. Calcified mediastinal and hilar lymph nodes are seen. Mild bilateral emphysematous changes are seen. Evaluation of the lung bases is limited by respiratory motion artifact. Mosaic attenuation the lungs bilaterally with associated groundglass opacities, nonspecific but may be due to small airway disease or perfusion anomaly, or from parenchymal groundglass lung disease which may be seen with infectious/inflammatory process. A 4 mm right upper lobe lung nodule (series 3 image 106) is seen. In addition a 6 mm pleural based right upper lobe lung nodule (series 3 image 107) is seen. However given the associated opacities and motion artifact, additional lung nodule may be obscured. No pleural effusion or pneumothorax. Mild elevation of the right hemidiaphragm possibly from low lung volumes or eventration. Visualized Upper abdomen: Of note, the left kidney is not seen. Bones: No definite aggressive osseous lesion is seen. Multilevel degenerative changes of the spine are seen. IMPRESSION: 1. Bilateral groundglass opacities or mosaic attenuation is seen. Although this may be due to small airway disease or perfusion anomaly, favor associated infectious/inflammatory process. 2. 4-6 mm right-sided lung nodules are seen. Per Fleischner Society guidelines for incidentally found solid nodules measuring less than 6 mm, no follow-up is necessary if patient is considered at low risk for lung cancer. If patient is considered to be at high risk, such as with history of smoking, then CT follow-up in about 12 months can be considered. 3. Mild cardiomegaly with coronary artery calcifications are seen. 4. Of note, the left kidney is not seen, correlate for possible prior surgical history or congenital anomaly. Electronically signed by: Mark Tanner MD (07/25/2018 10:58 AM) [facility] Laboratory Tests Test 07/24/18 11:33 07/24/18 16:51 07/24/18 20:16 07/25/18 05:30 Glucose (Fingerstick) 190 mg/dL (70-99) 153 mg/dL (70-99) 167 mg/dL (70-99) White Blood Count 7.2 x10^3/uL (4.0-11.0) Red Blood Count 3.55 x10^6/uL (3.50-5.40) Hemoglobin 10.9 g/dL (12.0-15.5) Hematocrit 32.5 % (36.0-47.0) Mean Corpuscular Volume 92 fL (79-100) Mean Corpuscular Hemoglobin 31 pg (25-35) Mean Corpuscular Hemoglobin Concent 33 g/dL (31-37) Red Cell Distribution Width 15.5 % (11.5-14.5) Platelet Count 280 x10^3/uL (140-400) Neutrophils (%) (Auto) 52 % (31-73) Lymphocytes (%) (Auto) 38 % (24-48) Monocytes (%) (Auto) 8 % (0-9) Eosinophils (%) (Auto) 1 % (0-3) Basophils (%) (Auto) 1 % (0-3) Neutrophils # (Auto) 3.7 x10^3uL (1.8-7.7) Lymphocytes # (Auto) 2.7 x10^3/uL (1.0-4.8) Monocytes # (Auto) 0.6 x10^3/uL (0.0-1.1) Eosinophils # (Auto) 0.1 x10^3/uL (0.0-0.7) Basophils # (Auto) 0.1 x10^3/uL (0.0-0.2) Sodium Level 142 mmol/L (136-145) Potassium Level 4.1 mmol/L (3.5-5.1) Chloride Level 105 mmol/L (98-107) Carbon Dioxide Level 29 mmol/L (21-32) Anion Gap 8 (6-14) Blood Urea Nitrogen 21 mg/dL (7-20) Creatinine 1.3 mg/dL (0.6-1.0) Estimated GFR (Cockcroft-Gault) 38.7 Glucose Level 95 mg/dL (70-99) Calcium Level 8.7 mg/dL (8.5-10.1) Test 07/25/18 07:50 Glucose (Fingerstick) 87 mg/dL (70-99) Assessment and Plan Assessmemt and Plan Problems Medical Problems: (1) Acute renal failure Status: Acute (2) Hypotension Status: Acute (3) UTI (urinary tract infection) Status: Acute Comment Review of Relevant I have reviewed the following items danny (where applicable) has been applied. Labs Laboratory Tests Test 07/23/18 11:02 07/23/18 12:00 07/23/18 16:29 07/23/18 20:24 Glucose (Fingerstick) 213 mg/dL (70-99) 157 mg/dL (70-99) 108 mg/dL (70-99) White Blood Count 6.7 x10^3/uL (4.0-11.0) Red Blood Count 3.80 x10^6/uL (3.50-5.40) Hemoglobin 11.5 g/dL (12.0-15.5) Hematocrit 35.4 % (36.0-47.0) Mean Corpuscular Volume 93 fL (79-100) Mean Corpuscular Hemoglobin 30 pg (25-35) Mean Corpuscular Hemoglobin Concent 33 g/dL (31-37) Red Cell Distribution Width 15.6 % (11.5-14.5) Platelet Count 313 x10^3/uL (140-400) Neutrophils (%) (Auto) 64 % (31-73) Lymphocytes (%) (Auto) 28 % (24-48) Monocytes (%) (Auto) 7 % (0-9) Eosinophils (%) (Auto) 1 % (0-3) Basophils (%) (Auto) 0 % (0-3) Neutrophils # (Auto) 4.3 x10^3uL (1.8-7.7) Lymphocytes # (Auto) 1.8 x10^3/uL (1.0-4.8) Monocytes # (Auto) 0.5 x10^3/uL (0.0-1.1) Eosinophils # (Auto) 0.1 x10^3/uL (0.0-0.7) Basophils # (Auto) 0.0 x10^3/uL (0.0-0.2) Sodium Level 140 mmol/L (136-145) Potassium Level 4.4 mmol/L (3.5-5.1) Chloride Level 103 mmol/L (98-107) Carbon Dioxide Level 31 mmol/L (21-32) Anion Gap 6 (6-14) Blood Urea Nitrogen 28 mg/dL (7-20) Creatinine 1.6 mg/dL (0.6-1.0) Estimated GFR (Cockcroft-Gault) 30.4 Glucose Level 154 mg/dL (70-99) Calcium Level 8.9 mg/dL (8.5-10.1) Test 3/3/19 04:00 07/24/18 07:37 07/24/18 11:33 07/24/18 16:51 Sodium Level 138 mmol/L (136-145) Potassium Level 4.0 mmol/L (3.5-5.1) Chloride Level 104 mmol/L (98-107) Carbon Dioxide Level 26 mmol/L (21-32) Anion Gap 8 (6-14) Blood Urea Nitrogen 25 mg/dL (7-20) Creatinine 1.5 mg/dL (0.6-1.0) Estimated GFR (Cockcroft-Gault) 32.8 Glucose Level 130 mg/dL (70-99) Calcium Level 8.8 mg/dL (8.5-10.1) Glucose (Fingerstick) 90 mg/dL (70-99) 190 mg/dL (70-99) 153 mg/dL (70-99) Test 07/24/18 20:16 07/25/18 05:30 07/25/18 07:50 Glucose (Fingerstick) 167 mg/dL (70-99) 87 mg/dL (70-99) White Blood Count 7.2 x10^3/uL (4.0-11.0) Red Blood Count 3.55 x10^6/uL (3.50-5.40) Hemoglobin 10.9 g/dL (12.0-15.5) Hematocrit 32.5 % (36.0-47.0) Mean Corpuscular Volume 92 fL (79-100) Mean Corpuscular Hemoglobin 31 pg (25-35) Mean Corpuscular Hemoglobin Concent 33 g/dL (31-37) Red Cell Distribution Width 15.5 % (11.5-14.5) Platelet Count 280 x10^3/uL (140-400) Neutrophils (%) (Auto) 52 % (31-73) Lymphocytes (%) (Auto) 38 % (24-48) Monocytes (%) (Auto) 8 % (0-9) Eosinophils (%) (Auto) 1 % (0-3) Basophils (%) (Auto) 1 % (0-3) Neutrophils # (Auto) 3.7 x10^3uL (1.8-7.7) Lymphocytes # (Auto) 2.7 x10^3/uL (1.0-4.8) Monocytes # (Auto) 0.6 x10^3/uL (0.0-1.1) Eosinophils # (Auto) 0.1 x10^3/uL (0.0-0.7) Basophils # (Auto) 0.1 x10^3/uL (0.0-0.2) Sodium Level 142 mmol/L (136-145) Potassium Level 4.1 mmol/L (3.5-5.1) Chloride Level 105 mmol/L (98-107) Carbon Dioxide Level 29 mmol/L (21-32) Anion Gap 8 (6-14) Blood Urea Nitrogen 21 mg/dL (7-20) Creatinine 1.3 mg/dL (0.6-1.0) Estimated GFR (Cockcroft-Gault) 38.7 Glucose Level 95 mg/dL (70-99) Calcium Level 8.7 mg/dL (8.5-10.1) Laboratory Tests Test 07/24/18 11:33 07/24/18 16:51 07/24/18 20:16 07/25/18 05:30 Glucose (Fingerstick) 190 mg/dL (70-99) 153 mg/dL (70-99) 167 mg/dL (70-99) White Blood Count 7.2 x10^3/uL (4.0-11.0) Red Blood Count 3.55 x10^6/uL (3.50-5.40) Hemoglobin 10.9 g/dL (12.0-15.5) Hematocrit 32.5 % (36.0-47.0) Mean Corpuscular Volume 92 fL (79-100) Mean Corpuscular Hemoglobin 31 pg (25-35) Mean Corpuscular Hemoglobin Concent 33 g/dL (31-37) Red Cell Distribution Width 15.5 % (11.5-14.5) Platelet Count 280 x10^3/uL (140-400) Neutrophils (%) (Auto) 52 % (31-73) Lymphocytes (%) (Auto) 38 % (24-48) Monocytes (%) (Auto) 8 % (0-9) Eosinophils (%) (Auto) 1 % (0-3) Basophils (%) (Auto) 1 % (0-3) Neutrophils # (Auto) 3.7 x10^3uL (1.8-7.7) Lymphocytes # (Auto) 2.7 x10^3/uL (1.0-4.8) Monocytes # (Auto) 0.6 x10^3/uL (0.0-1.1) Eosinophils # (Auto) 0.1 x10^3/uL (0.0-0.7) Basophils # (Auto) 0.1 x10^3/uL (0.0-0.2) Sodium Level 142 mmol/L (136-145) Potassium Level 4.1 mmol/L (3.5-5.1) Chloride Level 105 mmol/L (98-107) Carbon Dioxide Level 29 mmol/L (21-32) Anion Gap 8 (6-14) Blood Urea Nitrogen 21 mg/dL (7-20) Creatinine 1.3 mg/dL (0.6-1.0) Estimated GFR (Cockcroft-Gault) 38.7 Glucose Level 95 mg/dL (70-99) Calcium Level 8.7 mg/dL (8.5-10.1) Test 07/25/18 07:50 Glucose (Fingerstick) 87 mg/dL (70-99) Microbiology 07/22/18 Urine Culture - Final, Complete 07/22/18 Urine Culture Result 1 ([place]) - Final, Complete Medications Current Medications Sodium Chloride 1,000 ml @ 1,000 mls/hr 1X ONCE IV Last administered on at 13:56; Start 07/22/18 at 13:30; Stop 07/22/18 at 14:29; Status DC Ceftriaxone Sodium (Rocephin) 1 gm 1X ONCE IVP Last administered on 07/22/18at 13:57; Start 07/22/18 at 13:30; Stop 07/22/18 at 13:31; Status DC Ondansetron HCl (Zofran) 4 mg PRN Q8HRS PRN IV NAUSEA/VOMITING; Start 07/22/18 at 13:30; Stop 07/23/18 at 13:29; Status DC Sodium Chloride 1,000 ml @ 75 mls/hr 1X ONCE IV Last administered on at 16:33; Start 07/22/18 at 13:30; Stop 07/23/18 at 02:49; Status DC Ceftriaxone Sodium (Rocephin) 1 gm Q24H IVP Last administered on 07/24/18 12:41 ; Start 07/23/18 at 13:00 Influenza Virus Vaccine (Afluria Trivalent [id number] Syringe) 0.5 ml ONCE ONCE VAX IM Last administered on 07/22/18 16:41; Start 07/22/18 at 16:00; Stop at 16:01; Status DC Acetaminophen (Tylenol) 650 mg PRN QID PRN PO MILD PAIN; Start 07/22/18 at 17:00 Diclofenac Sodium (Voltaren) 2 south PRN QID PRN TP arthritis; Start 07/22/18 at 17:00 Fluticasone Propionate (Flonase) 2 spray DAILY NS Last administered on 09:24; Start 07/23/18 at 09:00 Furosemide (Lasix) 40 mg DAILY PO Last administered on 07/24/18 09:27; Start at 09:00 Gabapentin (Neurontin) 300 mg TID PO Last administered on 07/23/18 08:48; Start 07/22/18 at 21:00; Stop 07/23/18 at 11:25; Status DC Guaifenesin (Robitussin Dm) 10 ml PRN QID PRN PO COUGH; Start 07/22/18 at 17:00 Acetaminophen/ Hydrocodone Bitart (Lortab 7.5/325) 1 tab PRN Q6HRS PRN PO MODERATE PAIN Last administered on 07/23/18 13:34; Start 07/22/18 at 17:00 Acetaminophen/ Hydrocodone Bitart (Lortab 7.5/325) 1 tab TID PO Last administered on 07/25/18 09:08; Start 07/22/18 at 21:00 Nitroglycerin (Nitrostat) 0.4 mg PRN Q5MIN PRN SL CHEST PAIN; Start 07/22/18 at 17:00 Nystatin (Nystop) 1 south TID TP Last administered on 07/24/18 21:30; Start at 21:00 Sodium Bicarbonate (Sodium Bicarbonate) 650 mg BID PO Last administered on 21:30; Start 07/22/18 at 21:00 Vitamin D (Vitamin D3) 1,000 unit DAILY PO Last administered on 07/24/18 09:26 ; Start 07/23/18 at 09:00 Dorzolamide HCl (Trusopt) 1 drop BID OU Last administered on 07/24/18 21:31; Start 07/22/18 at 21:00 Insulin Glargine (Lantus) 15 units QHS SQ Last administered on 07/24/18 21:34; Start 07/22/18 at 21:00 Latanoprost (Xalatan) 1 drop QHS OU Last administered on 07/24/18 21:29; Start 07/22/18 at 21:00 Cetirizine HCl (ZyrTEC) 10 mg PRN DAILY PRN PO ALLERGIES; Start 07/22/18 at 17: 15 Multivitamins (Thera M Plus) 1 tab DAILY PO Last administered on 07/24/18 09:27 ; Start 07/23/18 at 09:00 Polyethylene Glycol (miraLAX PACKET) 17 gm PRN DAILY PRN PO CONSTIPATION Last administered on 07/23/18 13:33; Start 07/22/18 at 17:16 Lisinopril (Prinivil) 40 mg DAILY PO Last administered on 07/24/18 09:26; Start 07/22/18 at 17:30 Sertraline HCl (Zoloft) 25 mg DAILY PO Last administered on 07/24/18 09:26; Start 07/23/18 at 09:00 Simethicone (Gas-X) 80 mg PRN AFTMEALHC PRN PO GAS / BLOATING; Start 07/22/18 at 17:30 Spironolactone (Aldactone) 25 mg DAILY PO Last administered on 07/24/18 09:25; Start 07/23/18 at 09:00 Albuterol Sulfate (Ventolin Neb Soln) 2.5 mg PRN Q6HRS PRN NEB SHORTNESS OF BREATH; Start 07/22/18 at 17:00 Insulin Human Lispro (HumaLOG) 0-9 UNITS TIDWMEALS SQ Last administered on 17:17; Start 07/22/18 at 17:00 Dextrose (Dextrose 50%-Water Syringe) 12.5 gm PRN Q15MIN PRN IV SEE COMMENTS; Start 07/22/18 at 17:00 Timolol Maleate (Timoptic 0.5% Ophth) 1 drop BID OU Last administered on at 21:30; Start 07/22/18 at 21:00 Lactobacillus Rhamnosus (Culturelle) 1 cap BID PO Last administered on at 21:31; Start 07/23/18 at 21:00 Gabapentin (Neurontin) 300 mg DAILY PO Last administered on 07/24/18 09:26; Start 07/24/18 at 09:00 Azithromycin 250 ml @ 250 mls/hr DAILY IV Last administered on 07/23/18at 16:54 ; Start 07/23/18 at 17:00; Stop 07/24/18 at 05:09; Status DC Azithromycin 500 mg/Sodium Chloride 250 ml @ 250 mls/hr Q24H IV Last administered on 07/24/18at 18:12; Start 07/24/18 at 17:00 Active Scripts Active Proair Hfa (Albuterol Sulfate) 8.5 Gm Hfa.aer.ad 2.5 Mg NEB PRN Q6HRS PRN 14 Days Reported Levofloxacin 750 Mg Tablet 750 Mg PO QODAY 2 Days Hydrocodone-Apap 7.5-325 (Hydrocodone Bit/Acetaminophen) 1 Tab Tablet 1 Tab PO PRN Q6HRS PRN Theragran-M Premier 50+ Caplet (Mv-Mn/Fa/Coq10/Lycopene/Lutein) 1 Each Tablet 1 Each PO DAILY Nystatin 15 Gm Powder 15 Gm TP TID Hydrocodone-Apap 7.5-325 (Hydrocodone Bit/Acetaminophen) 1 Tab Tablet 1 Tab PO TID Simethicone 100 Ml Liquid 30 Ml MC PRN QID PRN Loratadine 10 Mg Tablet 1 Tab PO DAILY PRN Voltaren (Diclofenac Sodium) 100 Gm Gel..gram. 2 Gm TP QID PRN Clotrimazole 15 Gm Cream..g. 1 South TP BID PRN Tylenol (Acetaminophen) 325 Mg Tablet 2 Tab PO PRN QID PRN Nizoral (Ketoconazole) 120 Ml Shampoo 1 South TP TWICE WEEKLY Gabapentin (Gabapentin) 300 Mg Capsule 300 Mg PO TID Furosemide 40 Mg Tablet 1 Tab PO DAILY Fluticasone Propionate Nasal [place] (Fluticasone Propionate) 16 Gm [place].susp 2 [place] NS DAILY Aspirin Ec (Aspirin) 81 Mg Tablet. 1 Tab PO DAILY Tussin Dm Clear Liquid (Guaifenesin/Dextromethorphan) 118 Ml Syrup 118 Ml PO QID PRN Miralax (Polyethylene Glycol 3350) 17 Gm Powd.pack 1 Packet PO DAILY PRN Sodium Bicarbonate 650 Mg Tablet 1 Tab PO BID Lantus (Insulin Glargine,Hum.rec.anlog) 100 Unit/1 Ml Vial 15 Unit SQ HS Novolog (Insulin Aspart) 100 Unit/1 Ml Cartridge 0 SQ DAILYWSUP sliding scale <160=0 units 160-200=4 units 201-250=6 units 251-300=8 units 301-350=10 units 351-400=12 units >400=call Nitrostat (Nitroglycerin) 0.4 Mg Tab.subl 0.4 Mg SL PRN Q5MIN PRN Dorzolamide-Timolol Eye Drops (Dorzolamide Hcl/Timolol Maleat) 10 Ml Drops 1 Drop EACHEYE BID Vitamin D (Cholecalciferol (Vitamin D3)) 1,000 Unit Capsule 1 Cap PO DAILY Spironolactone 25 Mg Tablet 1 Tab PO DAILY Sertraline Hcl 25 Mg Tablet 25 Mg PO DAILY Latanoprost 2.5 Ml Drops 2.5 Ml OP HS Quinapril Hcl 40 Mg Tablet 40 Mg PO DAILY Vitals/I & O Vital Sign - Last 24 Hours 07/24/18 07/24/18 07/24/18 07/24/18 11:00 12:41 15:00 19:00 Temp 97.3 97.7 97.3 97.7 Pulse 68 66 85 Resp 20 18 18 B/P (MAP) 141/72 (95) 148/53 (84) 135/75 (95) Pulse Ox 97 97 97 94 O2 Delivery Room Air Nasal Cannula Room Air Nasal Cannula O2 Flow Rate 2.0 2.0 07/24/18 07/24/18 07/24/18 07/24/18 19:58 21:30 22:30 22:48 Temp 97.8 97.8 Pulse 74 Resp 18 18 17 B/P (MAP) 112/54 (73) Pulse Ox 94 94 93 O2 Delivery Nasal Cannula Nasal Cannula Nasal Cannula Nasal Cannula O2 Flow Rate 2.0 2.0 2.0 2.0 07/25/18 07/25/18 07/25/18 02:59 07:00 09:08 Temp 97.9 97.9 Pulse 75 72 Resp 17 16 20 B/P (MAP) 114/55 (74) 146/81 (102) Pulse Ox 96 95 96 O2 Delivery Nasal Cannula Nasal Cannula Nasal Cannula O2 Flow Rate 2.0 2.0 2.0 Intake and Output 07/24/18 07/24/18 07/25/18 15:00 23:00 07:00 Intake Total 500 ml 500 ml 540 ml Output Total 400 ml Balance 500 ml 500 ml 140 ml EMILY LUNDBERG MD Jul 25, 2018 10:06
[2018-07-25] MEDS: FLUTICASONE 50MCG/NASAL SPRAY 16GM BOTTLE. NS SCH (10:36)
[2018-07-25] MEDS: CHOLECALCIFEROL (VITAMIN D3) 1,000 UNIT TABLET PO SCH (10:37)
[2018-07-25] MEDS: GABAPENTIN 300 MG CAPSULE. PO SCH ×2 (10:37→20:47)
[2018-07-25] MEDS: TIMOLOL 0.5% OPHTH SOLUTION 5ML BOTTLE. OU SCH ×2 (10:37→20:48)
[2018-07-25] MEDS: MULTIVITAMIN with MINERAL TABLET. PO SCH (10:37)
[2018-07-25] MEDS: SPIRONOLACTONE 25 MG TABLET PO SCH (10:37)
[2018-07-25] MEDS: SERTRALINE 25 MG TABLET. PO SCH (10:37)
[2018-07-25] MEDS: SODIUM BICARBONATE 650 MG TABLET. PO SCH ×2 (10:37→20:47)
[2018-07-25] MEDS: LACTOBACILLUS RHAMNOSUS GG 1 CAPSULE. PO SCH ×2 (10:38→20:47)
[2018-07-25] MEDS: LISINOPRIL 20 MG TABLET PO SCH (10:38)
[2018-07-25] MEDS: FUROSEMIDE 40 MG TABLET. PO SCH (10:38)
[2018-07-25] MEDS: NYSTATIN TOPICAL POWDER 15GM BOTTLE. TP SCH ×3 (10:40→20:47)
[2018-07-25 11:00] VITALS: BP 127/58
--- NOTE | 2018-07-25 11:01 | RAD ---
EXAM: CT Chest without IV contrast CLINICAL HISTORY: lung nodule, follow-up COMPARISON: Chest radiograph 07/24/2018. TECHNIQUE: CT of the chest without intravenous contrast. Axial, coronal and sagittal reformatted images were generated. ---PQRS compliance statement - One or more of the following individualized dose reduction techniques were utilized for this study: 1. Automated exposure control 2. Adjustment of the mA and/or kV according to patient size 3. Use of iterative reconstruction technique--- FINDINGS: Lack of intravenous contrast limits evaluation of solid organs, vasculature, and lymph nodes. Chest: The heart is mildly enlarged. No pericardial effusion. Coronary artery calcifications are seen. Borderline prominence of the main left and right pulmonary arteries, nonspecific but may be seen with pulmonary arterial hypertension. Within the constraints of noncontrast exam, no mediastinal or hilar lymphadenopathy. No axillary lymphadenopathy. Calcified mediastinal and hilar lymph nodes are seen. Mild bilateral emphysematous changes are seen. Evaluation of the lung bases is limited by respiratory motion artifact. Mosaic attenuation the lungs bilaterally with associated groundglass opacities, nonspecific but may be due to small airway disease or perfusion anomaly, or from parenchymal groundglass lung disease which may be seen with infectious/inflammatory process. A 4 mm right upper lobe lung nodule (series 3 image 106) is seen. In addition a 6 mm pleural based right upper lobe lung nodule (series 3 image 107) is seen. However given the associated opacities and motion artifact, additional lung nodule may be obscured. No pleural effusion or pneumothorax. Mild elevation of the right hemidiaphragm possibly from low lung volumes or eventration. Visualized Upper abdomen: Of note, the left kidney is not seen. Bones: No definite aggressive osseous lesion is seen. Multilevel degenerative changes of the spine are seen. IMPRESSION: 1. Bilateral groundglass opacities or mosaic attenuation is seen. Although this may be due to small airway disease or perfusion anomaly, favor associated infectious/inflammatory process. 2. 4-6 mm right-sided lung nodules are seen. Per Fleischner Society guidelines for incidentally found solid nodules measuring less than 6 mm, no follow-up is necessary if patient is considered at low risk for lung cancer. If patient is considered to be at high risk, such as with history of smoking, then CT follow-up in about 12 months can be considered. 3. Mild cardiomegaly with coronary artery calcifications are seen. 4. Of note, the left kidney is not seen, correlate for possible prior surgical history or congenital anomaly. Electronically signed by: Mark Tanner MD (07/25/2018 10:58 AM) [facility]
--- NOTE | 2018-07-25 12:15 | NUR ---
SW responding to a referral to pt from [facility] and family believes pt might need more than [facility]. Chart reviewed. Pt is a resident at [facility] and has been at [facility] for skilled services. Pt has Medicare and supplemental secondary insurance ([employer]). PT/OT pending. SW will await for PT/OT recommendation and proceed accordingly. Will continue to follow.
[2018-07-25] MEDS: cefTRIAXone IV Push 1 GM VIAL. IVP SCH (14:14)
[2018-07-25 15:00] VITALS: BP 108/42
--- NOTE | 2018-07-25 15:04 | NUR ---
SW following pt. PT recommends SNU. Attempted to speak with pt but pt was in deep sleep. ARIC phoned pt's THEOReena ORTEGA via phone: [phone] and discussed concerns/dc plan. SW discussed insurance coverage for SNU vs LTC. Reena reported 'pt does not have Medicaid but is able to make private payments for a while' once she transition to LTC. SW discussed SNU and LTC options. Reena also reported pt is only interested in going to [facility] as it is the only facility she is comfortable at. SW phoned and faxed referral to [facility]. Pt admission and acceptance pending. Will continue to follow.
--- NOTE | 2018-07-25 15:51 | PDOC ---
SUBJECTIVE ROS Stable, very hard of hearing OBJECTIVE Vital Signs Vital Signs Date Time Temp Pulse Resp B/P (MAP) Pulse Ox O2 Delivery O2 Flow Rate FiO2 07/25/18 15:00 97.8 78 16 108/42 (64) 95 Room Air 97.8 07/25/18 14:13 2.0 I & 0 Intake and Output 07/25/18 07:00 Intake Total 1540 ml Output Total 400 ml Balance 1140 ml Intake Oral 1290 ml IV Total 250 ml Output Urine Total 400 ml # Voids 7 # Bowel Movements 2 PHYSICAL EXAM Physical Exam GENERAL: She is alert, cooperative, hard of hearing. HEART: Normal S1, S2. LUNGS: Clear. distant BS ABDOMEN: Soft, obese. General: No acute distress HEENT- hard of hearing Heart: Regular rate, Normal S1 Lungs: Clear Abdomen: Soft Extremities: No edema Skin: No rash - No henderson DIAGNOSIS/ASSESSMENT Assessment & Plan SEAMUS Pre-renal Improving E-Lytes stable Chronic kidney disease, stage III Urinary tract infection. Transient hypotension- Improved Dw RN, Pt very hard of hearing, No family at bedside COMMENT/RELEVANT DATA Meds Current Medications Medications (Trade) Dose Ordered Sig/Eduard Start Time Stop Time Status Last Admin Dose Admin Acetaminophen (Tylenol) 650 mg PRN QID PRN 07/22/18 17:00 Acetaminophen/ Hydrocodone Bitart (Lortab 7.5/325) 1 tab TID 07/22/18 21:00 07/25/18 14:13 1 TAB Albuterol Sulfate (Ventolin Neb Soln) 2.5 mg PRN Q6HRS PRN 07/22/18 17:00 Azithromycin 250 ml @ 250 mls/hr DAILY 07/23/18 17:00 07/24/18 05:09 DC 07/23/18 16:54 250 MLS/HR Azithromycin 500 mg/Sodium Chloride 250 ml @ 250 mls/hr Q24H 07/24/18 17:00 07/24/18 18:12 250 MLS/HR Ceftriaxone Sodium (Rocephin) 1 gm Q24H 07/23/18 13:00 07/25/18 14:14 1 GM Cetirizine HCl (ZyrTEC) 10 mg PRN DAILY PRN 07/22/18 17:15 Dextrose (Dextrose 50%-Water Syringe) 12.5 gm PRN Q15MIN PRN 07/22/18 17:00 Diclofenac Sodium (Voltaren) 2 yolanda PRN QID PRN 07/22/18 17:00 Dorzolamide HCl (Trusopt) 1 drop BID 07/22/18 21:00 07/24/18 21:31 1 DROP Fluticasone Propionate (Flonase) 2 spray DAILY 07/23/18 09:00 07/25/18 10:36 2 SPRAY Furosemide (Lasix) 40 mg DAILY 07/23/18 09:00 07/25/18 10:38 40 MG Gabapentin (Neurontin) 300 mg TID 07/25/18 21:00 Guaifenesin (Robitussin Dm) 10 ml PRN QID PRN 07/22/18 17:00 Influenza Virus Vaccine (Afluria Trivalent 1801-2385 Syringe) 0.5 ml ONCE ONCE 07/22/18 16:00 07/22/18 16:01 DC 07/22/18 16:41 0.5 ML Insulin Glargine (Lantus) 15 units QHS 07/22/18 21:00 07/24/18 21:34 15 UNITS Insulin Human Lispro (HumaLOG) 0-9 UNITS TIDWMEALS 07/22/18 17:00 07/24/18 17:17 4 UNITS Lactobacillus Rhamnosus (Culturelle) 1 cap BID 07/23/18 21:00 07/25/18 10:38 1 CAP Latanoprost (Xalatan) 1 drop QHS 07/22/18 21:00 07/24/18 21:29 1 DROP Lisinopril (Prinivil) 40 mg DAILY 07/22/18 17:30 07/25/18 10:38 40 MG Multivitamins (Thera M Plus) 1 tab DAILY 07/23/18 09:00 07/25/18 10:37 1 TAB Nitroglycerin (Nitrostat) 0.4 mg PRN Q5MIN PRN 07/22/18 17:00 Nystatin (Nystop) 1 yolanda TID 07/22/18 21:00 07/25/18 14:14 1 YOLANDA Ondansetron HCl (Zofran) 4 mg PRN Q8HRS PRN 07/22/18 13:30 07/23/18 13:29 DC Polyethylene Glycol (miraLAX PACKET) 17 gm PRN DAILY PRN 07/22/18 17:16 07/23/18 13:33 17 GM Sertraline HCl (Zoloft) 25 mg DAILY 07/23/18 09:00 07/25/18 10:37 25 MG Simethicone (Gas-X) 80 mg PRN AFTMEALHC PRN 07/22/18 17:30 Sodium Bicarbonate (Sodium Bicarbonate) 650 mg BID 07/22/18 21:00 07/25/18 10:37 650 MG Sodium Chloride 1,000 ml @ 75 mls/hr 1X ONCE 07/22/18 13:30 07/23/18 02:49 DC 07/22/18 16:33 75 MLS/HR Spironolactone (Aldactone) 25 mg DAILY 07/23/18 09:00 07/25/18 10:37 25 MG Timolol Maleate (Timoptic 0.5% Ophth) 1 drop BID 07/22/18 21:00 07/25/18 10:37 1 DROP Vitamin D (Vitamin D3) 1,000 unit DAILY 07/23/18 09:00 07/25/18 10:37 1,000 UNIT Lab Laboratory Tests Test 07/24/18 16:51 07/24/18 20:16 07/25/18 05:30 07/25/18 07:50 Glucose (Fingerstick) 153 mg/dL (70-99) 167 mg/dL (70-99) 87 mg/dL (70-99) White Blood Count 7.2 x10^3/uL (4.0-11.0) Red Blood Count 3.55 x10^6/uL (3.50-5.40) Hemoglobin 10.9 g/dL (12.0-15.5) Hematocrit 32.5 % (36.0-47.0) Mean Corpuscular Volume 92 fL (79-100) Mean Corpuscular Hemoglobin 31 pg (25-35) Mean Corpuscular Hemoglobin Concent 33 g/dL (31-37) Red Cell Distribution Width 15.5 % (11.5-14.5) Platelet Count 280 x10^3/uL (140-400) Neutrophils (%) (Auto) 52 % (31-73) Lymphocytes (%) (Auto) 38 % (24-48) Monocytes (%) (Auto) 8 % (0-9) Eosinophils (%) (Auto) 1 % (0-3) Basophils (%) (Auto) 1 % (0-3) Neutrophils # (Auto) 3.7 x10^3uL (1.8-7.7) Lymphocytes # (Auto) 2.7 x10^3/uL (1.0-4.8) Monocytes # (Auto) 0.6 x10^3/uL (0.0-1.1) Eosinophils # (Auto) 0.1 x10^3/uL (0.0-0.7) Basophils # (Auto) 0.1 x10^3/uL (0.0-0.2) Sodium Level 142 mmol/L (136-145) Potassium Level 4.1 mmol/L (3.5-5.1) Chloride Level 105 mmol/L (98-107) Carbon Dioxide Level 29 mmol/L (21-32) Anion Gap 8 (6-14) Blood Urea Nitrogen 21 mg/dL (7-20) Creatinine 1.3 mg/dL (0.6-1.0) Estimated GFR (Cockcroft-Gault) 38.7 Glucose Level 95 mg/dL (70-99) Calcium Level 8.7 mg/dL (8.5-10.1) Test 07/25/18 11:42 Glucose (Fingerstick) 145 mg/dL (70-99) Results All relevant outside records, renal labs, imaging studies, telemetry/EKG's were reviewed. JOMAR ROBLES MD Jul 25, 2018 15:51
[2018-07-25 16:45] LABS: BILIRUBIN,URINE NEGATIVE (NEG); CLARITY,URINE CLEAR; COLOR,URINE YELLOW; NITRITE,URINE NEGATIVE (NEG); PH,URINE 6.5; PROTEIN,URINE NEGATIVE (NEG-TRACE); UROBILINOGEN,URINE 0.2 mg/dL (0.2 mg/dL)
[2018-07-25 16:55] LABS: BACTERIA,URINE 0 /HPF (0-FEW); RBC,URINE 0 /HPF (0-2); SQUAMOUS EPITHELIAL CELL,UR MOD /LPF
--- NOTE | 2018-07-25 17:50 | PDOC ---
PROGRESS NOTES Subjective Subjective Patient seen and examined The patient looks and feels better today. Objective Objective Vital Signs Date Time Temp Pulse Resp B/P (MAP) Pulse Ox O2 Delivery O2 Flow Rate FiO2 07/25/18 15:00 97.8 78 16 108/42 (64) 95 Room Air 97.8 07/25/18 14:13 2.0 Intake and Output 07/25/18 07:00 Intake Total 1540 ml Output Total 400 ml Balance 1140 ml Intake Oral 1290 ml IV Total 250 ml Output Urine Total 400 ml # Voids 7 # Bowel Movements 2 Physical Exam Abdomen: Normal bowel sounds Heart: Regular rate General: mild distress Lungs: Clear to auscultation Assessment Assessment Problems Medical Problems: (1) Acute renal failure Status: Acute (2) Hypotension Status: Acute (3) UTI (urinary tract infection) Status: Acute 1. Acute kidney injury. Creatinine improved at 1.3. Followed by renal. 2. Urinary tract infection. Antibiotics started. 3. Hypotension. Improved. 4. COPD. Continue present treatments. 5. Probable mild diastolic heart failure. ECHO shows intact LV systolic function with an ejection fraction of 55% and mild tricuspid regurgitation. Would continue present treatment. Comment Review of Relevant I have reviewed the following items danny (where applicable) has been applied. Labs Laboratory Tests Test 07/23/18 20:24 07/24/18 04:00 07/24/18 07:37 07/24/18 11:33 Glucose (Fingerstick) 108 mg/dL (70-99) 90 mg/dL (70-99) 190 mg/dL (70-99) Sodium Level 138 mmol/L (136-145) Potassium Level 4.0 mmol/L (3.5-5.1) Chloride Level 104 mmol/L (98-107) Carbon Dioxide Level 26 mmol/L (21-32) Anion Gap 8 (6-14) Blood Urea Nitrogen 25 mg/dL (7-20) Creatinine 1.5 mg/dL (0.6-1.0) Estimated GFR (Cockcroft-Gault) 32.8 Glucose Level 130 mg/dL (70-99) Calcium Level 8.8 mg/dL (8.5-10.1) Test 07/24/18 16:51 07/24/18 20:16 07/25/18 05:30 07/25/18 07:50 Glucose (Fingerstick) 153 mg/dL (70-99) 167 mg/dL (70-99) 87 mg/dL (70-99) White Blood Count 7.2 x10^3/uL (4.0-11.0) Red Blood Count 3.55 x10^6/uL (3.50-5.40) Hemoglobin 10.9 g/dL (12.0-15.5) Hematocrit 32.5 % (36.0-47.0) Mean Corpuscular Volume 92 fL (79-100) Mean Corpuscular Hemoglobin 31 pg (25-35) Mean Corpuscular Hemoglobin Concent 33 g/dL (31-37) Red Cell Distribution Width 15.5 % (11.5-14.5) Platelet Count 280 x10^3/uL (140-400) Neutrophils (%) (Auto) 52 % (31-73) Lymphocytes (%) (Auto) 38 % (24-48) Monocytes (%) (Auto) 8 % (0-9) Eosinophils (%) (Auto) 1 % (0-3) Basophils (%) (Auto) 1 % (0-3) Neutrophils # (Auto) 3.7 x10^3uL (1.8-7.7) Lymphocytes # (Auto) 2.7 x10^3/uL (1.0-4.8) Monocytes # (Auto) 0.6 x10^3/uL (0.0-1.1) Eosinophils # (Auto) 0.1 x10^3/uL (0.0-0.7) Basophils # (Auto) 0.1 x10^3/uL (0.0-0.2) Sodium Level 142 mmol/L (136-145) Potassium Level 4.1 mmol/L (3.5-5.1) Chloride Level 105 mmol/L (98-107) Carbon Dioxide Level 29 mmol/L (21-32) Anion Gap 8 (6-14) Blood Urea Nitrogen 21 mg/dL (7-20) Creatinine 1.3 mg/dL (0.6-1.0) Estimated GFR (Cockcroft-Gault) 38.7 Glucose Level 95 mg/dL (70-99) Calcium Level 8.7 mg/dL (8.5-10.1) Test 07/25/18 11:42 07/25/18 16:10 07/25/18 16:34 Glucose (Fingerstick) 145 mg/dL (70-99) 180 mg/dL (70-99) Urine Collection Type Unknown Urine Color Yellow Urine Clarity Clear Urine pH 6.5 Urine Specific [place] 1.010 Urine Protein Negative mg/dL (NEG-TRACE) Urine Glucose (UA) Negative mg/dL (NEG) Urine Ketones (Stick) Negative mg/dL (NEG) Urine Blood Negative (NEG) Urine Nitrite Negative (NEG) Urine Bilirubin Negative (NEG) Urine Urobilinogen Dipstick 0.2 mg/dL (0.2 mg/dL) Urine Leukocyte Esterase Small (NEG) Urine RBC 0 /HPF (0-2) Urine WBC 5-10 /HPF (0-4) Urine Squamous Epithelial Cells Mod /LPF Urine Bacteria 0 /HPF (0-FEW) Laboratory Tests Test 07/24/18 20:16 07/25/18 05:30 07/25/18 07:50 07/25/18 11:42 Glucose (Fingerstick) 167 mg/dL (70-99) 87 mg/dL (70-99) 145 mg/dL (70-99) White Blood Count 7.2 x10^3/uL (4.0-11.0) Red Blood Count 3.55 x10^6/uL (3.50-5.40) Hemoglobin 10.9 g/dL (12.0-15.5) Hematocrit 32.5 % (36.0-47.0) Mean Corpuscular Volume 92 fL (79-100) Mean Corpuscular Hemoglobin 31 pg (25-35) Mean Corpuscular Hemoglobin Concent 33 g/dL (31-37) Red Cell Distribution Width 15.5 % (11.5-14.5) Platelet Count 280 x10^3/uL (140-400) Neutrophils (%) (Auto) 52 % (31-73) Lymphocytes (%) (Auto) 38 % (24-48) Monocytes (%) (Auto) 8 % (0-9) Eosinophils (%) (Auto) 1 % (0-3) Basophils (%) (Auto) 1 % (0-3) Neutrophils # (Auto) 3.7 x10^3uL (1.8-7.7) Lymphocytes # (Auto) 2.7 x10^3/uL (1.0-4.8) Monocytes # (Auto) 0.6 x10^3/uL (0.0-1.1) Eosinophils # (Auto) 0.1 x10^3/uL (0.0-0.7) Basophils # (Auto) 0.1 x10^3/uL (0.0-0.2) Sodium Level 142 mmol/L (136-145) Potassium Level 4.1 mmol/L (3.5-5.1) Chloride Level 105 mmol/L (98-107) Carbon Dioxide Level 29 mmol/L (21-32) Anion Gap 8 (6-14) Blood Urea Nitrogen 21 mg/dL (7-20) Creatinine 1.3 mg/dL (0.6-1.0) Estimated GFR (Cockcroft-Gault) 38.7 Glucose Level 95 mg/dL (70-99) Calcium Level 8.7 mg/dL (8.5-10.1) Test 07/25/18 16:10 07/25/18 16:34 Urine Collection Type Unknown Urine Color Yellow Urine Clarity Clear Urine pH 6.5 Urine Specific [place] 1.010 Urine Protein Negative mg/dL (NEG-TRACE) Urine Glucose (UA) Negative mg/dL (NEG) Urine Ketones (Stick) Negative mg/dL (NEG) Urine Blood Negative (NEG) Urine Nitrite Negative (NEG) Urine Bilirubin Negative (NEG) Urine Urobilinogen Dipstick 0.2 mg/dL (0.2 mg/dL) Urine Leukocyte Esterase Small (NEG) Urine RBC 0 /HPF (0-2) Urine WBC 5-10 /HPF (0-4) Urine Squamous Epithelial Cells Mod /LPF Urine Bacteria 0 /HPF (0-FEW) Glucose (Fingerstick) 180 mg/dL (70-99) Microbiology 07/22/18 Urine Culture - Final, Complete 07/22/18 Urine Culture Result 1 ([place]OUR[place]) - Final, Complete Medications Current Medications Sodium Chloride 1,000 ml @ 1,000 mls/hr 1X ONCE IV Last administered on at 13:56; Start 07/22/18 at 13:30; Stop 07/22/18 at 14:29; Status DC Ceftriaxone Sodium (Rocephin) 1 gm 1X ONCE IVP Last administered on 07/22/18at 13:57; Start 07/22/18 at 13:30; Stop 07/22/18 at 13:31; Status DC Ondansetron HCl (Zofran) 4 mg PRN Q8HRS PRN IV NAUSEA/VOMITING; Start 07/22/18 at 13:30; Stop 07/23/18 at 13:29; Status DC Sodium Chloride 1,000 ml @ 75 mls/hr 1X ONCE IV Last administered on at 16:33; Start 07/22/18 at 13:30; Stop 07/23/18 at 02:49; Status DC Ceftriaxone Sodium (Rocephin) 1 gm Q24H IVP Last administered on 07/25/18 14:14 ; Start 07/23/18 at 13:00 Influenza Virus Vaccine (Afluria Trivalent [id number] Syringe) 0.5 ml ONCE ONCE VAX IM Last administered on 07/22/18 16:41; Start 07/22/18 at 16:00; Stop at 16:01; Status DC Acetaminophen (Tylenol) 650 mg PRN QID PRN PO MILD PAIN; Start 07/22/18 at 17:00 Diclofenac Sodium (Voltaren) 2 south PRN QID PRN TP arthritis; Start 07/22/18 at 17:00 Fluticasone Propionate (Flonase) 2 spray DAILY NS Last administered on 10:36; Start 07/23/18 at 09:00 Furosemide (Lasix) 40 mg DAILY PO Last administered on 07/25/18 10:38; Start at 09:00 Gabapentin (Neurontin) 300 mg TID PO Last administered on 07/23/18 08:48; Start 07/22/18 at 21:00; Stop 07/23/18 at 11:25; Status DC Guaifenesin (Robitussin Dm) 10 ml PRN QID PRN PO COUGH; Start 07/22/18 at 17:00 Acetaminophen/ Hydrocodone Bitart (Lortab 7.5/325) 1 tab PRN Q6HRS PRN PO MODERATE PAIN Last administered on 07/23/18 13:34; Start 07/22/18 at 17:00 Acetaminophen/ Hydrocodone Bitart (Lortab 7.5/325) 1 tab TID PO Last administered on 07/25/18 14:13; Start 07/22/18 at 21:00 Nitroglycerin (Nitrostat) 0.4 mg PRN Q5MIN PRN SL CHEST PAIN; Start 07/22/18 at 17:00 Nystatin (Nystop) 1 south TID TP Last administered on 07/25/18 14:14; Start at 21:00 Sodium Bicarbonate (Sodium Bicarbonate) 650 mg BID PO Last administered on 10:37; Start 07/22/18 at 21:00 Vitamin D (Vitamin D3) 1,000 unit DAILY PO Last administered on 07/25/18 10:37 ; Start 07/23/18 at 09:00 Dorzolamide HCl (Trusopt) 1 drop BID OU Last administered on 07/24/18 21:31; Start 07/22/18 at 21:00 Insulin Glargine (Lantus) 15 units QHS SQ Last administered on 07/24/18 21:34; Start 07/22/18 at 21:00 Latanoprost (Xalatan) 1 drop QHS OU Last administered on 07/24/18 21:29; Start 07/22/18 at 21:00 Cetirizine HCl (ZyrTEC) 10 mg PRN DAILY PRN PO ALLERGIES; Start 07/22/18 at 17: 15 Multivitamins (Thera M Plus) 1 tab DAILY PO Last administered on 07/25/18 10:37 ; Start 07/23/18 at 09:00 Polyethylene Glycol (miraLAX PACKET) 17 gm PRN DAILY PRN PO CONSTIPATION Last administered on 07/23/18 13:33; Start 07/22/18 at 17:16 Lisinopril (Prinivil) 40 mg DAILY PO Last administered on 07/25/18 10:38; Start 07/22/18 at 17:30 Sertraline HCl (Zoloft) 25 mg DAILY PO Last administered on 07/25/18 10:37; Start 07/23/18 at 09:00 Simethicone (Gas-X) 80 mg PRN AFTMEALHC PRN PO GAS / BLOATING; Start 07/22/18 at 17:30 Spironolactone (Aldactone) 25 mg DAILY PO Last administered on 07/25/18 10:37; Start 07/23/18 at 09:00 Albuterol Sulfate (Ventolin Neb Soln) 2.5 mg PRN Q6HRS PRN NEB SHORTNESS OF BREATH; Start 07/22/18 at 17:00 Insulin Human Lispro (HumaLOG) 0-9 UNITS TIDWMEALS SQ Last administered on 17:17; Start 07/22/18 at 17:00 Dextrose (Dextrose 50%-Water Syringe) 12.5 gm PRN Q15MIN PRN IV SEE COMMENTS; Start 07/22/18 at 17:00 Timolol Maleate (Timoptic 0.5% Oph) 1 drop BID OU Last administered on 10:37; Start 07/22/18 at 21:00 Lactobacillus Rhamnosus (Culturelle) 1 cap BID PO Last administered on 10:38; Start 07/23/18 at 21:00 Gabapentin (Neurontin) 300 mg DAILY PO Last administered on 07/25/18 10:37; Start 07/24/18 at 09:00; Stop 07/25/18 at 15:21; Status DC Azithromycin 250 ml @ 250 mls/hr DAILY IV Last administered on 07/23/18at 16:54 ; Start 07/23/18 at 17:00; Stop 07/24/18 at 05:09; Status DC Azithromycin 500 mg/Sodium Chloride 250 ml @ 250 mls/hr Q24H IV Last administered on 07/24/18 18:12; Start 07/24/18 at 17:00 Gabapentin (Neurontin) 300 mg TID PO ; Start 07/25/18 at 21:00 Active Scripts Active Proair Hfa (Albuterol Sulfate) 8.5 Gm Hfa.aer.ad 2.5 Mg NEB PRN Q6HRS PRN 14 Days Reported Levofloxacin 750 Mg Tablet 750 Mg PO QODAY 2 Days Hydrocodone-Apap 7.5-325 (Hydrocodone Bit/Acetaminophen) 1 Tab Tablet 1 Tab PO PRN Q6HRS PRN Theragran-M Premier 50+ Caplet (Mv-Mn/Fa/Coq10/Lycopene/Lutein) 1 Each Tablet 1 Each PO DAILY Nystatin 15 Gm Powder 15 Gm TP TID Hydrocodone-Apap 7.5-325 (Hydrocodone Bit/Acetaminophen) 1 Tab Tablet 1 Tab PO TID Simethicone 100 Ml Liquid 30 Ml MC PRN QID PRN Loratadine 10 Mg Tablet 1 Tab PO DAILY PRN Voltaren (Diclofenac Sodium) 100 Gm Gel..gram. 2 Gm TP QID PRN Clotrimazole 15 Gm Cream..g. 1 South TP BID PRN Tylenol (Acetaminophen) 325 Mg Tablet 2 Tab PO PRN QID PRN Nizoral (Ketoconazole) 120 Ml Shampoo 1 South TP TWICE WEEKLY Gabapentin (Gabapentin) 300 Mg Capsule 300 Mg PO TID Furosemide 40 Mg Tablet 1 Tab PO DAILY Fluticasone Propionate Nasal [place] (Fluticasone Propionate) 16 Gm [place].susp 2 [place] NS DAILY Aspirin Ec (Aspirin) 81 Mg Tablet.dr 1 Tab PO DAILY Tussin Dm Clear Liquid (Guaifenesin/Dextromethorphan) 118 Ml Syrup 118 Ml PO QID PRN Miralax (Polyethylene Glycol 3350) 17 Gm Powd.pack 1 Packet PO DAILY PRN Sodium Bicarbonate 650 Mg Tablet 1 Tab PO BID Lantus (Insulin Glargine,Hum.rec.anlog) 100 Unit/1 Ml Vial 15 Unit SQ HS Novolog (Insulin Aspart) 100 Unit/1 Ml Cartridge 0 SQ DAILYWSUP sliding scale <160=0 units 160-200=4 units 201-250=6 units 251-300=8 units 301-350=10 units 351-400=12 units >400=call Nitrostat (Nitroglycerin) 0.4 Mg Tab.subl 0.4 Mg SL PRN Q5MIN PRN Dorzolamide-Timolol Eye Drops (Dorzolamide Hcl/Timolol Maleat) 10 Ml Drops 1 Drop EACHEYE BID Vitamin D (Cholecalciferol (Vitamin D3)) 1,000 Unit Capsule 1 Cap PO DAILY Spironolactone 25 Mg Tablet 1 Tab PO DAILY Sertraline Hcl 25 Mg Tablet 25 Mg PO DAILY Latanoprost 2.5 Ml Drops 2.5 Ml OP HS Quinapril Hcl 40 Mg Tablet 40 Mg PO DAILY Vitals/I & O Vital Sign - Last 24 Hours 07/24/18 07/24/18 07/24/18 07/24/18 19:00 19:58 21:30 22:30 Temp 97.7 97.7 Pulse 85 Resp 18 18 B/P (MAP) 135/75 (95) Pulse Ox 94 94 O2 Delivery Nasal Cannula Nasal Cannula Nasal Cannula O2 Flow Rate 2.0 2.0 2.0 2.0 07/24/18 07/25/18 07/25/18 07/25/18 22:48 02:59 07:00 08:00 Temp 97.8 97.9 97.8 97.9 Pulse 74 75 72 Resp 17 17 16 B/P (MAP) 112/54 (73) 114/55 (74) 146/81 (102) Pulse Ox 93 96 95 O2 Delivery Nasal Cannula Nasal Cannula Nasal Cannula Nasal Cannula O2 Flow Rate 2.0 2.0 2.0 2.0 07/25/18 07/25/18 07/25/18 07/25/18 09:08 10:08 10:38 11:00 Temp 97.6 97.6 Pulse 72 75 Resp 20 20 18 B/P (MAP) 146/81 127/58 (81) Pulse Ox 96 96 98 O2 Delivery Nasal Cannula Nasal Cannula Room Air O2 Flow Rate 2.0 07/25/18 07/25/18 14:13 15:00 Temp 97.8 97.8 Pulse 78 Resp 20 16 B/P (MAP) 108/42 (64) Pulse Ox 98 95 O2 Delivery Nasal Cannula Room Air O2 Flow Rate 2.0 Intake and Output 07/24/18 07/24/18 07/25/18 15:00 23:00 07:00 Intake Total 500 ml 500 ml 540 ml Output Total 400 ml Balance 500 ml 500 ml 140 ml SILVINO AGUILAR MD Jul 25, 2018 17:50
[2018-07-25] MEDS: AZITHROMYCIN 500 MG in IV NORMAL SALINE 250ML 250 ML IV SCH (17:54)
[2018-07-25 19:00] VITALS: BP 127/68
[2018-07-25] MEDS: INSULIN GLARGINE 300 UNITS/3 ML INSULN.PEN. SQ SCH (21:21)
[2018-07-25 23:00] VITALS: BP 130/68
[2018-07-26 03:00] VITALS: BP 114/47
[2018-07-26 07:00] VITALS: BP 117/53
[2018-07-26] MEDS: INSULIN LISPRO 300 UNITS/3 ML INSULN.PEN. SQ SCH ×2 (08:00→13:07)
--- NOTE | 2018-07-26 08:32 | NUR ---
SW following pt. Pt has been accepted at and facility will have a bed available upon dc. RN and Physician notified.
[2018-07-26] MEDS: MULTIVITAMIN with MINERAL TABLET. PO SCH (09:22)
[2018-07-26] MEDS: FLUTICASONE 50MCG/NASAL SPRAY 16GM BOTTLE. NS SCH (09:22)
[2018-07-26] MEDS: LACTOBACILLUS RHAMNOSUS GG 1 CAPSULE. PO SCH (09:22)
[2018-07-26] MEDS: CHOLECALCIFEROL (VITAMIN D3) 1,000 UNIT TABLET PO SCH (09:22)
[2018-07-26] MEDS: SODIUM BICARBONATE 650 MG TABLET. PO SCH (09:22)
[2018-07-26] MEDS: SERTRALINE 25 MG TABLET. PO SCH (09:22)
[2018-07-26] MEDS: DORZOLAMIDE 2% OPHTH SOLUTION 10ML BOTTLE. OU SCH (09:23)
[2018-07-26] MEDS: FUROSEMIDE 40 MG TABLET. PO SCH (09:23)
[2018-07-26] MEDS: NYSTATIN TOPICAL POWDER 15GM BOTTLE. TP SCH ×2 (09:23→14:14)
[2018-07-26] MEDS: SPIRONOLACTONE 25 MG TABLET PO SCH (09:23)
[2018-07-26] MEDS: TIMOLOL 0.5% OPHTH SOLUTION 5ML BOTTLE. OU SCH (09:23)
[2018-07-26] MEDS: HYDROcodone/APAP 7.5/325MG 1 TAB TABLET PO SCH ×2 (09:25→14:19)
[2018-07-26] MEDS: GABAPENTIN 300 MG CAPSULE. PO SCH ×2 (09:40→14:14)
[2018-07-26] MEDS: LISINOPRIL 20 MG TABLET PO SCH (09:41)
[2018-07-26 11:00] VITALS: BP 113/48
[2018-07-26] MEDS: cefTRIAXone IV Push 1 GM VIAL. IVP SCH (13:00)
[2018-07-26] MEDS ORDERED: LACT1CAP19 PO (13:03)
--- NOTE | 2018-07-26 13:04 | DISCH ---
DISCHARGE DISCHARGE INFORMATION: DISCHARGE DATE: Jul 26, 2018 FINAL DIAGNOSIS Problems Medical Problems: (1) Acute renal failure Status: Acute (2) Hypotension Status: Acute (3) UTI (urinary tract infection) Status: Acute CONDITION ON DISCHARGE: Stable CODE STATUS: Code Status: Full CARE HOME: SNF STAY <30 DAYS: Yes POST DISCHARGE ORDERS: ACTIVITY ORDERS: Activity as tolerated WEIGHT BEARING STATUS: As tolerated DIET AFTER DISCHARGE: Cardiac CHECKS AFTER DISCHARGE: CHECKS AFTER DISCHARGE: Check blood press - daily, Check blood sugar, ac/hs TREATMENT/EQUIPMENT ORDERS: ADAPTIVE EQUIPMENT NEEDED: Wheelchair Physical Therapy For: Evalulation/Treatment Occupational Therapy For: Evaluation/Treatment Speech Language Pathology For: Evaluation/Treatment DISCHARGE MEDICATIONS: Home Meds Active Scripts Lactobacillus Rhamnosus Gg (CULTURELLE) 1 Each Cap.sprink, 1 CAP PO BID for probiotic for 14 Days, #28 CAP Prov:JESUS SILVERIO MD 07/26/18 Albuterol Sulfate (Proair Hfa) 8.5 Gm Hfa.aer.ad, 2.5 MG NEB PRN Q6HRS PRN for SHORTNESS OF BREATH for 14 Days, #30 INHALER Prov:EMILY LUNDBERG MD 05/23/18 Reported Medications Levofloxacin (LEVOFLOXACIN) 750 Mg Tablet, 750 MG PO QODAY for antibiotic for 2 Days, #2 07/22/18 Hydrocodone Bit/Acetaminophen (HYDROCODONE-APAP 7.5-325 ) 1 Tab Tablet, 1 TAB PO PRN Q6HRS PRN for PAIN, TAB 0 Refills 07/22/18 Mv-Mn/Fa/Coq10/Lycopene/Lutein (THERAGRAN-M PREMIER 50+ CAPLET) 1 Each Tablet, 1 EACH PO DAILY for supplement, TAB 07/22/18 Nystatin (NYSTATIN) 15 Gm Powder, 15 GM TP TID for rash, MISC 07/22/18 Hydrocodone Bit/Acetaminophen (HYDROCODONE-APAP 7.5-325 ) 1 Tab Tablet, 1 TAB PO TID for pain, TAB 0 Refills 07/22/18 Simethicone (SIMETHICONE) 100 Ml Liquid, 30 ML MC PRN QID PRN for GAS / BLOATING , LIQUID 05/19/18 Loratadine (LORATADINE) 10 Mg Tablet, 1 TAB PO DAILY PRN for allergies, #30 TAB 5 Refills 05/19/18 Diclofenac Sodium (VOLTAREN) 100 Gm Gel..gram., 2 GM TP QID PRN for arthritis, # 100 GM 2 Refills 05/19/18 Clotrimazole (CLOTRIMAZOLE) 15 Gm Cream..g., 1 ITZEL TP BID PRN for ITCHING, #30 GM 05/19/18 Acetaminophen (TYLENOL) 325 Mg Tablet, 2 TAB PO PRN QID PRN for PAIN, #30 TAB 05/19/18 Ketoconazole (NIZORAL) 120 Ml Shampoo, 1 ITZEL TP TWICE WEEKLY for candidiasis, # 120 ML 2 Refills 05/19/18 Gabapentin (GABAPENTIN ) 300 Mg Capsule, 300 MG PO TID for NEUROGENIC PAIN, CAP 05/19/18 Furosemide (FUROSEMIDE) 40 Mg Tablet, 1 TAB PO DAILY for htn, #30 TAB 5 Refills 05/19/18 Fluticasone Propionate (FLUTICASONE PROPIONATE NASAL SPRAY) 16 Gm [place].susp, 2 SPRAY NS DAILY for allergies, #1 INHALER 11 Refills 05/19/18 Aspirin (ASPIRIN EC) 81 Mg Tablet.dr, 1 TAB PO DAILY for prophylaxis, #30 TAB 3 Refills 05/19/18 Guaifenesin/Dextromethorphan (TUSSIN DM CLEAR LIQUID) 118 Ml Syrup, 118 ML PO QID PRN for COUGH, MISC 02/22/18 Polyethylene Glycol 3350 (MIRALAX) 17 Gm Powd.pack, 1 PACKET PO DAILY PRN for CONSTIPATION, #30 PACKET 3 Refills 02/22/18 Sodium Bicarbonate (SODIUM BICARBONATE) 650 Mg Tablet, 1 TAB PO BID for hyponatremia, #60 TAB 5 Refills 02/22/18 Insulin Glargine,Hum.rec.anlog (LANTUS) 100 Unit/1 Ml Vial, 15 UNIT SQ HS for diabetes, VIAL 04/19/16 Insulin Aspart (NOVOLOG) 100 Unit/1 Ml Cartridge, 0 SQ DAILYWSUP for diabetes, EACH sliding scale <160=0 units 160-200=4 units 201-250=6 units 251-300=8 units 301-350=10 units 351-400=12 units >400=call 04/19/16 Nitroglycerin (NITROSTAT) 0.4 Mg Tab.subl, 0.4 MG SL PRN Q5MIN PRN for CHEST PAIN, BOTTLE 04/19/16 Dorzolamide Hcl/Timolol Maleat (DORZOLAMIDE-TIMOLOL EYE DROPS) 10 Ml Drops, 1 DROP EACHEYE BID, #10 ML 6 Refills 04/19/16 Cholecalciferol (Vitamin D3) (VITAMIN D) 1,000 Unit Capsule, 1 CAP PO DAILY, # 30 CAP 3 Refills 04/19/16 Spironolactone (SPIRONOLACTONE) 25 Mg Tablet, 1 TAB PO DAILY, #90 TAB 1 Refill 04/19/16 Sertraline Hcl (SERTRALINE HCL) 25 Mg Tablet, 25 MG PO DAILY for ANTI-DEPRESSANT , TAB 0 Refills 04/19/16 Latanoprost (LATANOPROST) 2.5 Ml Drops, 2.5 ML OP HS 09/14/13 Quinapril Hcl (QUINAPRIL HCL) 40 Mg Tablet, 40 MG PO DAILY for HTN 09/14/13 JESUS SILVERIO MD Jul 26, 2018 13:04
--- NOTE | 2018-07-26 13:27 | PDOC ---
CARDIO Progress Notes Date and Time Date of Service 07/26/2018 Time of Evaluation 1310 Subjective Subjective: No Chest Pain, No shortness of breath, No Palpitations Vitals Vitals Vital Signs Date Time Temp Pulse Resp B/P (MAP) Pulse Ox O2 Delivery O2 Flow Rate FiO2 07/26/18 11:00 98.1 63 18 113/48 (69) 92 Room Air 2.0 98.1 Weight Weight [ ] Input and Output Intake and Output Intake and Output 07/26/18 07:00 Intake Total 900 ml Output Total 600 ml Balance 300 ml Intake Oral 900 ml Output Urine Total 600 ml # Voids 3 Laboratory Labs Laboratory Tests Test 07/25/18 16:10 07/25/18 16:34 07/25/18 21:08 07/26/18 07:31 Urine Collection Type Unknown Urine Color Yellow Urine Clarity Clear Urine pH 6.5 Urine Specific [place] 1.010 Urine Protein Negative mg/dL (NEG-TRACE) Urine Glucose (UA) Negative mg/dL (NEG) Urine Ketones (Stick) Negative mg/dL (NEG) Urine Blood Negative (NEG) Urine Nitrite Negative (NEG) Urine Bilirubin Negative (NEG) Urine Urobilinogen Dipstick 0.2 mg/dL (0.2 mg/dL) Urine Leukocyte Esterase Small (NEG) Urine RBC 0 /HPF (0-2) Urine WBC 5-10 /HPF (0-4) Urine Squamous Epithelial Cells Mod /LPF Urine Bacteria 0 /HPF (0-FEW) Glucose (Fingerstick) 180 mg/dL (70-99) 164 mg/dL (70-99) 139 mg/dL (70-99) Test 07/26/18 10:48 Glucose (Fingerstick) 209 mg/dL (70-99) Microbiology Micro Microbiology 07/22/18 Urine Culture - Final, Complete 07/22/18 Urine Culture Result 1 ([facility]) - Final, Complete Physical Exam HEENT: Neck Supple W Full Motion Chest: Symmetric LUNGS: Other (diminished bases) Heart: S1S2, RRR (SR) Abdomen: Soft N/T Extremities: No Calf Tenderness Neurology: alert, oriented, follow commands Assessment Assessment 1. Diastolic CHF: compensated 2. SEAMUS: Cr better, nephrology following 3. UTI 4. COPD 5. Hypotension: BP much better Recommendations 1. Continue with current regimen 2. Nothing further cardiac gilman, follow up in office in 4 weeks. SULY ROSSI APRN Jul 26, 2018 13:27
--- NOTE | 2018-07-26 15:27 | PDOC3 ---
Discharge Summary Visit Information Date of Admission: Jul 22, 2018 Date of Discharge: Jul 26, 2018 Admitting Diagnosis Comment: Acute on chronic renal failure with azotemia and incidental finding of urinary tract infection, anemia and probable mild element of heart failure. Possible pneumonia. Final Diagnosis Problems Medical Problems: (1) Acute renal failure resolved Status: Acute (2) Hypotension resolved Status: Acute (3) UTI (urinary tract infection) ruled out. Culture with mixed urogenital efrem Status: Acute Brief Hospital Course Allergies Allergies Coded Allergies Type Severity Reaction Last Updated Verified codeine Allergy Intermediate Rash 06/17/18 Yes Vital Signs Vital Signs Date Time Temp Pulse Resp B/P (MAP) Pulse Ox O2 Delivery O2 Flow Rate FiO2 07/26/18 14:19 18 93 Room Air 07/26/18 11:00 98.1 63 113/48 (69) 2.0 98.1 Lab Results Laboratory Tests Test 07/24/18 16:51 07/24/18 20:16 07/25/18 05:30 07/25/18 07:50 Glucose (Fingerstick) 153 mg/dL (70-99) 167 mg/dL (70-99) 87 mg/dL (70-99) White Blood Count 7.2 x10^3/uL (4.0-11.0) Red Blood Count 3.55 x10^6/uL (3.50-5.40) Hemoglobin 10.9 g/dL (12.0-15.5) Hematocrit 32.5 % (36.0-47.0) Mean Corpuscular Volume 92 fL (79-100) Mean Corpuscular Hemoglobin 31 pg (25-35) Mean Corpuscular Hemoglobin Concent 33 g/dL (31-37) Red Cell Distribution Width 15.5 % (11.5-14.5) Platelet Count 280 x10^3/uL (140-400) Neutrophils (%) (Auto) 52 % (31-73) Lymphocytes (%) (Auto) 38 % (24-48) Monocytes (%) (Auto) 8 % (0-9) Eosinophils (%) (Auto) 1 % (0-3) Basophils (%) (Auto) 1 % (0-3) Neutrophils # (Auto) 3.7 x10^3uL (1.8-7.7) Lymphocytes # (Auto) 2.7 x10^3/uL (1.0-4.8) Monocytes # (Auto) 0.6 x10^3/uL (0.0-1.1) Eosinophils # (Auto) 0.1 x10^3/uL (0.0-0.7) Basophils # (Auto) 0.1 x10^3/uL (0.0-0.2) Sodium Level 142 mmol/L (136-145) Potassium Level 4.1 mmol/L (3.5-5.1) Chloride Level 105 mmol/L (98-107) Carbon Dioxide Level 29 mmol/L (21-32) Anion Gap 8 (6-14) Blood Urea Nitrogen 21 mg/dL (7-20) Creatinine 1.3 mg/dL (0.6-1.0) Estimated GFR (Cockcroft-Gault) 38.7 Glucose Level 95 mg/dL (70-99) Calcium Level 8.7 mg/dL (8.5-10.1) Test 07/25/18 11:42 07/25/18 16:10 07/25/18 16:34 07/25/18 21:08 Glucose (Fingerstick) 145 mg/dL (70-99) 180 mg/dL (70-99) 164 mg/dL (70-99) Urine Collection Type Unknown Urine Color Yellow Urine Clarity Clear Urine pH 6.5 Urine Specific [place] 1.010 Urine Protein Negative mg/dL (NEG-TRACE) Urine Glucose (UA) Negative mg/dL (NEG) Urine Ketones (Stick) Negative mg/dL (NEG) Urine Blood Negative (NEG) Urine Nitrite Negative (NEG) Urine Bilirubin Negative (NEG) Urine Urobilinogen Dipstick 0.2 mg/dL (0.2 mg/dL) Urine Leukocyte Esterase Small (NEG) Urine RBC 0 /HPF (0-2) Urine WBC 5-10 /HPF (0-4) Urine Squamous Epithelial Cells Mod /LPF Urine Bacteria 0 /HPF (0-FEW) Test 07/26/18 07:31 07/26/18 10:48 Glucose (Fingerstick) 139 mg/dL (70-99) 209 mg/dL (70-99) Laboratory Tests Test 07/25/18 16:10 07/25/18 16:34 07/25/18 21:08 07/26/18 07:31 Urine Collection Type Unknown Urine Color Yellow Urine Clarity Clear Urine pH 6.5 Urine Specific [place] 1.010 Urine Protein Negative mg/dL (NEG-TRACE) Urine Glucose (UA) Negative mg/dL (NEG) Urine Ketones (Stick) Negative mg/dL (NEG) Urine Blood Negative (NEG) Urine Nitrite Negative (NEG) Urine Bilirubin Negative (NEG) Urine Urobilinogen Dipstick 0.2 mg/dL (0.2 mg/dL) Urine Leukocyte Esterase Small (NEG) Urine RBC 0 /HPF (0-2) Urine WBC 5-10 /HPF (0-4) Urine Squamous Epithelial Cells Mod /LPF Urine Bacteria 0 /HPF (0-FEW) Glucose (Fingerstick) 180 mg/dL (70-99) 164 mg/dL (70-99) 139 mg/dL (70-99) Test 07/26/18 10:48 Glucose (Fingerstick) 209 mg/dL (70-99) Brief Hospital Course Ms. Zhong is a 88 old who presented with hypotension mild elevation of her creatinine and a possible urinary tract infection. This was treated initially empirically with broad-spectrum antibiotics with renal adjustment once cultures were reported antibiotic therapy was discontinued there is a question whether the patient was hypotensive due to poor oral intake and dehydration which resolved after IV fluid resuscitation. She was seen in consultation by nephrology. Patient from their pont of view was thad at her baseline with CKd stage 3 as a diagnosis. Patient had a CT chest as poart of her evaluation for shortness of breath with the following results: ATIENT: ARNOLD ZHONG ACCOUNT: [id number] : 1930 LOCATION: [address] [place] [address] AGE: 88 SEX: F EXAM STATUS: ADM IN ORD. PHYSICIAN: EMILY LUNDBERG MD REASON: lung nodule, TO DO IN AM 07/25/2018 PER RN. PROCEDURE: CT CHEST WO CONTRAST EXAM: CT Chest without IV contrast CLINICAL HISTORY: lung nodule, follow-up COMPARISON: Chest radiograph 07/24/2018. TECHNIQUE: CT of the chest without intravenous contrast. Axial, coronal and sagittal reformatted images were generated. ---PQRS compliance statement - One or more of the following individualized dose reduction techniques were utilized for this study: 1. Automated exposure control 2. Adjustment of the mA and/or kV according to patient size 3. Use of iterative reconstruction technique--- FINDINGS: Lack of intravenous contrast limits evaluation of solid organs, vasculature, and lymph nodes. Chest: The heart is mildly enlarged. No pericardial effusion. Coronary artery calcifications are seen. Borderline prominence of the main left and right pulmonary arteries, nonspecific but may be seen with pulmonary arterial hypertension. Within the constraints of noncontrast exam, no mediastinal or hilar lymphadenopathy. No axillary lymphadenopathy. Calcified mediastinal and hilar lymph nodes are seen. Mild bilateral emphysematous changes are seen. Evaluation of the lung bases is limited by respiratory motion artifact. Mosaic attenuation the lungs bilaterally with associated groundglass opacities, nonspecific but may be due to small airway disease or perfusion anomaly, or from parenchymal groundglass lung disease which may be seen with infectious/inflammatory process. A 4 mm right upper lobe lung nodule (series 3 image 106) is seen. In addition a 6 mm pleural based right upper lobe lung nodule (series 3 image 107) is seen. However given the associated opacities and motion artifact, additional lung nodule may be obscured. No pleural effusion or pneumothorax. Mild elevation of the right hemidiaphragm possibly from low lung volumes or eventration. Visualized Upper abdomen: Of note, the left kidney is not seen. Bones: No definite aggressive osseous lesion is seen. Multilevel degenerative changes of the spine are seen. IMPRESSION: 1. Bilateral groundglass opacities or mosaic attenuation is seen. Although this may be due to small airway disease or perfusion anomaly, favor associated infectious/inflammatory process. 2. 4-6 mm right-sided lung nodules are seen. Per Fleischner Society guidelines for incidentally found solid nodules measuring less than 6 mm, no follow-up is necessary if patient is considered at low risk for lung cancer. If patient is considered to be at high risk, such as with history of smoking, then CT follow-up in about 12 months can be considered. 3. Mild cardiomegaly with coronary artery calcifications are seen. 4. Of note, the left kidney is not seen, correlate for possible prior surgical history or congenital anomaly. Electronically signed by: Mark Tanner MD (07/25/2018 10:58 AM) [facility] She was evaluated by physical therapy and recommendation was to transition to a longterm facility since the patient lives in assisted living facility where according to family members she does not get all the care that she currently needs given her advanced age. Patient will need help with her medications no changes were made from the cardiological standpoint of view given that she has an intact ejection fraction and she has compensated diastolic dysfunction Echocardiogram was done as well as part of her workup with the following results : PATIENT: ARNOLD ZHONG ACCOUNT: [id number] : 1930 LOCATION: [address] [place] [address] AGE: 88 SEX: F EXAM STATUS: ADM IN ORD. PHYSICIAN: SILVINO AGUILAR MD REASON: heart failure PROCEDURE: [id number] ECHOCARDIOGRAM MR#: [id number] [facility] Date of Study: 07/24/2018 Ordering Physician: SILVINO AGUILAR, Referring Physician: RICKEY OROZCO Tech: Arielle Briseno, [facility] APPROVED REPORT EXAM: Two-dimensional and M-mode echocardiogram with Doppler and color Doppler. Other Information Quality : Average HR: 67bpm Rhythm : NSR Technically limited study due to body habitus. INDICATION Congestive Heart Failure 2D DIMENSIONS Left Atrium(2D) 3.5 (1.6-4.0cm) IVSd 1.1 (0.7-1.1cm) Aortic Root(2D) 3.1 (2.0-3.7cm) LVDd 3.7 (3.9-5.9cm) LVOT Diameter 2.0 (1.8-2.4cm) PWd 1.1 (0.7-1.1cm) LVDs 2.6 (2.5-4.0cm) FS (%) 29.5 % SV 32.7 ml LVEF(%) 57.4 (>50%) Aortic Valve AoV Peak Cheko. 136.2cm/s AoV VTI 26.6cm AO Peak GR. 7.4mmHg LVOT Peak Cheko. 96.0cm/s AO Mean GR. 4mmHg ED (VMAX) 2.12cm2 Mitral Valve MV E Velocity 63.2cm/s MV DECEL TIME 223ms MV A Velocity 95.5cm/s E/A Ratio 0.7 MV A Duration 129ms Tricuspid Valve TR P. Velocity 271cm/s TR Peak Gr. 29mmHg Pulmonary Vein S1 Velocity 51.4cm/s D2 Velocity 31.5cm/s LEFT VENTRICLE The left ventricle is normal size. There is normal left ventricular wall thickness. The left ventricular systolic function is normal and the ejection fraction is within normal range. EF 55% There is normal LV segmental wall motion. Septal motion suggestive of conduction defect. Transmitral Doppler flow pattern is Grade I-abnormal relaxation pattern. RIGHT VENTRICLE The right ventricle is normal size. There is normal right ventricular wall thickness. The right ventricular systolic function is normal. ATRIA The left atrium size is normal. The right atrium size is normal. The interatrial septum is intact with no evidence for an atrial septal defect or patent foramen ovale as noted on 2-D or Doppler imaging. AORTIC VALVE The aortic valve is normal in structure and function. Doppler and Color Flow revealed no significant aortic regurgitation. There is no significant aortic valvular stenosis. There is no aortic valvular vegetation. MITRAL VALVE The mitral valve is mildly thickened. There is no evidence of mitral valve prolapse. There is no mitral valve stenosis. Doppler and Color Flow revealed no mitral valve regurgitation noted. TRICUSPID VALVE The tricuspid valve is normal in structure and function. Doppler and Color Flow revealed mild tricuspid regurgitation. The pulmonary artery systolic pressure is estimated at 30 mmHg. There is borderline pulmonary hypertension. The PA pressure was estimated at 35 mmHg. There is no tricuspid valve prolapse or vegetation. There is no tricuspid valve stenosis. PULMONIC VALVE The pulmonary valve is normal in structure and function. Doppler and Color Flow revealed no pulmonic valvular regurgitation. There is no pulmonic valvular stenosis. GREAT VESSELS The aortic root is normal in size. The IVC is normal in size and collapses >50% with inspiration. PERICARDIAL EFFUSION There is no pleural effusion. There is no evidence of significant pericardial effusion. Critical Notification Critical Value: No <Conclusion> The left ventricular systolic function is normal and the ejection fraction is within normal range. EF 55% There is normal LV segmental wall motion. Septal motion suggestive of conduction defect. Signed by : Shorty Mendez, Electronically Approved : 07/25/2018 08:38:33 DICTATED and SIGNED BY: SHORTY MENDEZ MD DATE: 07/25/18 0838 Patient was in good spirits at the time of discharge, son at bedside, all concerns addressed to the best of my abilities. GERD than 35 minutes were spent in the discharge process of the patient in counseling coordination of care and arrangements for a safe transfer Physical exam: Abdomen: Normal bowel sounds Heart: Regular rate General: no distress Lungs: Clear to auscultation Discharge Information Condition at Discharge: Improved Follow Up: Weeks (primary care physician 1 week) Disposition/Orders: D/C to Another Facility Scheduled Aspirin (Aspirin Ec) 81 Mg Tablet.dr, 1 TAB PO DAILY for prophylaxis, #30 Ref 3 (Reported) Entered as Reported by: Maldonado Duval on 05/19/181809 Last Action: Reviewed on 07/22/181641 by GERMAIN FERGUSON Cholecalciferol (Vitamin D3) (Vitamin D) 1,000 Unit Capsule, 1 CAP PO DAILY, # 30 Ref 3 (Reported) Entered as Reported by: CATHRYN ARIAS on 04/19/162044 Last Action: Converted on 07/22/181706 by GERMAIN FERGUSON Dorzolamide Hcl/Timolol Maleat (Dorzolamide-Timolol Eye Drops) 10 Ml Drops, 1 DROP EACHEYE BID, #10 Ref 6 (Reported) Entered as Reported by: CATHRYN ARIAS on 04/19/162044 Last Action: Converted on 07/22/181706 by GERMAIN FERGUSON Fluticasone Propionate (Fluticasone Propionate Nasal Atkins) 16 Gm Atkins.susp, 2 SPRAY NS DAILY for allergies, #1 Ref 11 (Reported) Entered as Reported by: Maldonado Duval on 05/19/181809 Last Action: Continued on 07/22/181706 by GERMAIN FERGUSON Furosemide (Furosemide) 40 Mg Tablet, 1 TAB PO DAILY for htn, #30 Ref 5 ( Reported) Entered as Reported by: Maldonado Duval on 05/19/181809 Last Action: Continued on 07/22/181706 by GERMAIN FERGUSON Gabapentin (Gabapentin ) 300 Mg Capsule, 300 MG PO TID for NEUROGENIC PAIN, ( Reported) Entered as Reported by: Maldonado Duval on 05/19/181809 Last Action: Continued on 07/22/181706 by GERMAIN FERGUSON Hydrocodone Bit/Acetaminophen (Hydrocodone-Apap 7.5-325 ) 1 Tab Tablet, 1 TAB PO TID for pain, Ref 0 (Reported) Entered as Reported by: GERMAIN FERGUSON on 07/22/181641 Last Action: Continued on 07/22/181706 by GERMAIN FERGUSON Insulin Aspart (Novolog) 100 Unit/1 Ml Cartridge, 0 SQ DAILYWSUP for diabetes, ( Reported) sliding scale <160=0 units 160-200=4 units 201-250=6 units 251-300=8 units 301-350=10 units 351-400=12 units >400=call md Entered as Reported by: CATHRYN ARIAS on 04/19/162049 Last Action: Reviewed on 07/22/181641 by GERMAIN FERGUSON Insulin Glargine,Hum.rec.anlog (Lantus) 100 Unit/1 Ml Vial, 15 UNIT SQ HS for diabetes, (Reported) Entered as Reported by: CATHRYN ARIAS on 04/19/162049 Last Action: Converted on 07/22/181706 by GERMAIN FERGUSON Ketoconazole (Nizoral) 120 Ml Shampoo, 1 ITZEL TP TWICE WEEKLY for candidiasis, # 120 Ref 2 (Reported) Entered as Reported by: Maldonado Duval on 05/19/181809 Last Action: Reviewed on 07/22/181641 by GERMAIN FERGUSON Lactobacillus Rhamnosus Gg (Culturelle) 1 Each Cap.sprink, 1 CAP PO BID for probiotic for 14 Days, #28 Prescribed by: JESUS SILVERIO MD on 07/26/18 1303 Latanoprost (Latanoprost) 2.5 Ml Drops, 2.5 ML OP HS, (Reported) Entered as Reported by: EVANS COVARRUBIAS on 09/14/13 0946 Last Action: Converted on 07/22/181706 by GERMAIN FERGUSON Levofloxacin (Levofloxacin) 750 Mg Tablet, 750 MG PO QODAY for antibiotic for 2 Days, #2 (Reported) Entered as Reported by: GERMAIN FERGUSON on 07/22/181641 Last Action: Reviewed on 07/22/181642 by GERMAIN FERGUSON Mv-Mn/Fa/Coq10/Lycopene/Lutein (Theragran-M Premier 50+ Caplet) 1 Each Tablet, 1 EACH PO DAILY for supplement, (Reported) Entered as Reported by: GERMAIN FERGUSON on 07/22/181641 Last Action: Converted on 07/22/181706 by GERMAIN FERGUSON Nystatin (Nystatin) 15 Gm Powder, 15 GM TP TID for rash, (Reported) Entered as Reported by: GERMAIN FERGUSON on 07/22/181641 Last Action: Continued on 07/22/181706 by GERMAIN FERGUSON Quinapril Hcl (Quinapril Hcl) 40 Mg Tablet, 40 MG PO DAILY for HTN, (Reported) Entered as Reported by: EVANS COVARRUBIAS on 09/14/13 0946 Last Action: Converted on 07/22/181706 by GERMAIN FERGUSON Sertraline Hcl (Sertraline Hcl) 25 Mg Tablet, 25 MG PO DAILY for ANTI-DEPRESSANT , Ref 0 (Reported) Entered as Reported by: CATHRYN ARIAS on 04/19/162044 Last Action: Converted on 07/22/181706 by GERMAIN FERGUSON Sodium Bicarbonate (Sodium Bicarbonate) 650 Mg Tablet, 1 TAB PO BID for hyponatremia, #60 Ref 5 (Reported) Entered as Reported by: CORNELL WILDER on 02/22/18 1406 Last Action: Continued on 07/22/181706 by GERMAIN FERGUSON Spironolactone (Spironolactone) 25 Mg Tablet, 1 TAB PO DAILY, #90 Ref 1 ( Reported) Entered as Reported by: CATHRYN ARIAS on 04/19/162044 Last Action: Converted on 07/22/181706 by GERMAIN FERGUSON Scheduled PRN Acetaminophen (Tylenol) 325 Mg Tablet, 2 TAB PO PRN QID PRN for PAIN, #30 ( Reported) Entered as Reported by: Maldonado Duval on 05/19/181809 Last Action: Continued on 07/22/181706 by GERMAIN FERGUSON Albuterol Sulfate (Proair Hfa) 8.5 Gm Hfa.aer.ad, 2.5 MG NEB PRN Q6HRS PRN for SHORTNESS OF BREATH for 14 Days, #30 Prescribed by: EMILY LUNDBERG MD on 05/23/18 1313 Last Action: Continued on 07/22/181706 by GERMAIN FERGUSON Clotrimazole (Clotrimazole) 15 Gm Cream..g., 1 ITZEL TP BID PRN for ITCHING, #30 ( Reported) Entered as Reported by: Maldonado Duval on 05/19/181809 Last Action: Reviewed on 07/22/181641 by GERMAIN FERGUSON Diclofenac Sodium (Voltaren) 100 Gm Gel..gram., 2 GM TP QID PRN for arthritis, # 100 Ref 2 (Reported) Entered as Reported by: Maldonado Duval on 05/19/181816 Last Action: Continued on 07/22/181706 by GERMAIN FERGUSON Guaifenesin/Dextromethorphan (Tussin Dm Clear Liquid) 118 Ml Syrup, 118 ML PO QID PRN for COUGH, (Reported) Entered as Reported by: CORNELL WILDER on 02/22/181405 Last Action: Continued on 07/22/181706 by GERMAIN FERGUSON Hydrocodone Bit/Acetaminophen (Hydrocodone-Apap 7.5-325 ) 1 Tab Tablet, 1 TAB PO PRN Q6HRS PRN for PAIN, Ref 0 (Reported) Entered as Reported by: GERMAIN FERGUSON on 07/22/181641 Last Action: Continued on 07/22/181706 by GERMAIN FERGUSON Loratadine (Loratadine) 10 Mg Tablet, 1 TAB PO DAILY PRN for allergies, #30 Ref 5 (Reported) Entered as Reported by: Maldonado Duval on 05/19/181816 Last Action: Converted on 07/22/181706 by GERMAIN FERGUSON Nitroglycerin (Nitrostat) 0.4 Mg Tab.subl, 0.4 MG SL PRN Q5MIN PRN for CHEST PAIN, (Reported) Entered as Reported by: CATHRYN ARIAS on 04/19/162049 Last Action: Continued on 07/22/181706 by GERMAIN FERGUSON Polyethylene Glycol 3350 (Miralax) 17 Gm Powd.pack, 1 PACKET PO DAILY PRN for CONSTIPATION, #30 Ref 3 (Reported) Entered as Reported by: CORNELL WILDER on 02/22/181405 Last Action: Converted on 07/22/181706 by GERMAIN FERGUSON Simethicone (Simethicone) 100 Ml Liquid, 30 ML MC PRN QID PRN for GAS / BLOATING , (Reported) Entered as Reported by: Maldonado Duval on 05/19/181816 Last Action: Converted on 07/22/181706 by JESUS SINCLAIR MD Jul 26, 2018 15:27
== END 2018-07-26 15:40 | DRG 682 ==
LOC: ER 10:44 → 5 NORTH 13:10
PROVIDERS: ADMIT Internal Medicine; ATTEND Internal Medicine
DX: N17.9 Acute kidney failure, unspecified (principal); J18.9 Pneumonia, unspecified organism; I13.0 Hypertensive heart and chronic kidney disease with heart failure and stage 1 through stage 4 chronic kidney disease, or unspecified chronic kidney disease; I50.30 Unspecified diastolic (congestive) heart failure; I95.9 Hypotension, unspecified; R79.89 Other specified abnormal findings of blood chemistry; N18.3 Chronic kidney disease, stage 3 (moderate); E11.22 Type 2 diabetes mellitus with diabetic chronic kidney disease; J44.9 Chronic obstructive pulmonary disease, unspecified; H40.9 Unspecified glaucoma; E78.00 Pure hypercholesterolemia, unspecified; K57.90 Diverticulosis of intestine, part unspecified, without perforation or abscess without bleeding; I25.119 Atherosclerotic heart disease of native coronary artery with unspecified angina pectoris; M19.90 Unspecified osteoarthritis, unspecified site; E78.5 Hyperlipidemia, unspecified; F41.9 Anxiety disorder, unspecified; Z96.649 Presence of unspecified artificial hip joint; H91.90 Unspecified hearing loss, unspecified ear; D64.9 Anemia, unspecified; E86.0 Dehydration; G89.29 Other chronic pain; Z90.710 Acquired absence of both cervix and uterus; Z90.49 Acquired absence of other specified parts of digestive tract; Z82.49 Family history of ischemic heart disease and other diseases of the circulatory system; Z86.73 Personal history of transient ischemic attack (TIA), and cerebral infarction without residual deficits
CPT/HCPCS: 36415; 71045; 71250; 80048; 80053; 81001; 82553; 82962; 83735; 83880; 84443; 84484; 85025; 87086; 87641; 90471; 90756; 93005; 93306; 94640; 96361; 96365; G0238; J0456; J0696; J1815; J7030; J7050; 99285-25; Q2035

== ENCOUNTER → 2018-09-15 | Outpatient (CLI) | payer MEDICARE ==
[~2018-09-15] MED LIST changes: +HYDR-2765 PO; +LACT1CAP19 PO; +LEVO750T5 PO; +MV-M1TAB8 PO; +NYST15PO9 TP
[2018-09-15 09:32] LABS: BILIRUBIN,URINE NEGATIVE (NEG); CLARITY,URINE CLEAR; COLOR,URINE YELLOW; NITRITE,URINE NEGATIVE (NEG); PH,URINE 6.5; PROTEIN,URINE NEGATIVE (NEG-TRACE); UROBILINOGEN,URINE 0.2 mg/dL (0.2 mg/dL)
[2018-09-15 09:57] LABS: CREATININE,RANDOM URINE 65.2 mg/dL (Not Establ.)
[2018-09-15 10:14] LABS: RBC,URINE 0 /HPF (0-2)
[2018-09-15 10:15] LABS: BACTERIA,URINE 0 /HPF (0-FEW); SQUAMOUS EPITHELIAL CELL,UR MOD /LPF; WBC,URINE >40 /HPF (0-4)
[2018-09-15 16:13] LABS: CREAT RD UR 63.9 mg/dL (Not Estab.); MICRO CREAT RATIO 67.3 mg/g creat (0.0-30.0)
== END | disposition home or self-care (01) ==
LOC: SPEC 09:05
PROVIDERS: ATTEND Internal Medicine
DX: N17.9 Acute kidney failure, unspecified (principal); I12.9 Hypertensive chronic kidney disease with stage 1 through stage 4 chronic kidney disease, or unspecified chronic kidney disease; N18.3 Chronic kidney disease, stage 3 (moderate); E87.5 Hyperkalemia; E21.3 Hyperparathyroidism, unspecified; E87.1 Hypo-osmolality and hyponatremia; N39.0 Urinary tract infection, site not specified
CPT/HCPCS: 36415; 81001; 82043; 82570; 84156; 87086

== ENCOUNTER → 2018-09-16 | Outpatient (CLI) | payer MEDICARE ==
[2018-09-16 06:54] LABS: CALCIUM 9.4 mg/dL (8.5-10.1); CREATININE 1.5 mg/dL (0.6-1.0); GFR 32.8; MAGNESIUM 1.7 mg/dL (1.8-2.4); PHOSPHORUS 4.4 mg/dL (2.6-4.7); POTASSIUM 4.1 mmol/L (3.5-5.1)
[2018-09-16 07:18] LABS: HEMATOCRIT 37.1 % (36.0-47.0); HEMOGLOBIN 12.3 g/dL (12.0-15.5)
[2018-09-16 23:13] LABS: CALCIUM PTH 9.2 mg/dL (8.7-10.3); CREATININE PTH 1.39 mg/dL (0.57-1.00); PTH INTACT 58 pg/mL (15-65)
== END | disposition home or self-care (01) ==
LOC: SPEC 03:23
PROVIDERS: ATTEND Internal Medicine
DX: N17.9 Acute kidney failure, unspecified (principal); I13.0 Hypertensive heart and chronic kidney disease with heart failure and stage 1 through stage 4 chronic kidney disease, or unspecified chronic kidney disease; E11.22 Type 2 diabetes mellitus with diabetic chronic kidney disease; N18.3 Chronic kidney disease, stage 3 (moderate); I50.32 Chronic diastolic (congestive) heart failure; E87.5 Hyperkalemia; E21.3 Hyperparathyroidism, unspecified; E87.1 Hypo-osmolality and hyponatremia; N39.0 Urinary tract infection, site not specified
CPT/HCPCS: 36415; 80069; 82306; 83735; 83970; 85014; 85018

== ENCOUNTER → 2018-11-03 | Outpatient (CLI) | payer MEDICARE ==
[2018-11-03 06:00] LABS: BILIRUBIN,URINE NEGATIVE (NEG); CLARITY,URINE CLEAR; COLOR,URINE YELLOW; NITRITE,URINE NEGATIVE (NEG); PROTEIN,URINE NEGATIVE (NEG-TRACE); UROBILINOGEN,URINE 0.2 mg/dL (0.2 mg/dL)
[2018-11-03 06:06] LABS: HYALINE CASTS, URINE OCCASIONAL /HPF; SQUAMOUS EPITHELIAL CELL,UR MOD /LPF
[2018-11-03 06:07] LABS: BACTERIA,URINE FEW /HPF (0-FEW); WBC,URINE 20-40 /HPF (0-4)
== END | disposition home or self-care (01) ==
LOC: SPEC 01:44
PROVIDERS: ATTEND Internal Medicine
DX: M62.81 Muscle weakness (generalized) (principal); E11.40 Type 2 diabetes mellitus with diabetic neuropathy, unspecified; M25.551 Pain in right hip; Z79.899 Other long term (current) drug therapy
CPT/HCPCS: 81001; 87086

== ENCOUNTER → 2018-11-09 | Outpatient (CLI) | payer MEDICARE ==
[2018-11-09 06:20] LABS: CALCIUM 8.8 mg/dL (8.5-10.1); CREATININE 1.2 mg/dL (0.6-1.0); GFR 42.4
== END | disposition home or self-care (01) ==
LOC: SPEC 00:14
PROVIDERS: ATTEND Internal Medicine
DX: M25.551 Pain in right hip (principal)
CPT/HCPCS: 36415; 80048

== ENCOUNTER → 2018-12-09 | Outpatient (CLI) | payer MEDICARE ==
[2018-12-09 17:42] LABS: BILIRUBIN,URINE NEGATIVE (NEG); CLARITY,URINE CLEAR; COLOR,URINE YELLOW; NITRITE,URINE NEGATIVE (NEG); PH,URINE 7.5; PROTEIN,URINE NEGATIVE (NEG-TRACE); UROBILINOGEN,URINE 0.2 mg/dL (0.2 mg/dL)
[2018-12-09 17:53] LABS: BACTERIA,URINE FEW /HPF (0-FEW); RBC,URINE 0 /HPF (0-2); SQUAMOUS EPITHELIAL CELL,UR MANY /LPF; WBC,URINE >40 /HPF (0-4)
== END | disposition home or self-care (01) ==
LOC: SPEC 17:28
PROVIDERS: ATTEND Internal Medicine
DX: R30.9 Painful micturition, unspecified (principal); R35.0 Frequency of micturition; R53.83 Other fatigue; Z87.448 Personal history of other diseases of urinary system
CPT/HCPCS: 81001; 87086; 87186

== ENCOUNTER → 2018-12-26 | Outpatient (CLI) | payer MEDICARE ==
[2018-12-26 05:54] LABS: BASO # 0.1 x10^3/uL (0.0-0.2); BASO % 1 % (0-3); EOS % 1 % (0-3); HEMATOCRIT 34.7 % (36.0-47.0); HEMOGLOBIN 11.6 g/dL (12.0-15.5); LYMPH % 33 % (24-48); MEAN CORPUSCULAR HEMOGLOBIN 29 pg (25-35); MEAN CORPUSCULAR HGB CONC 33 g/dL (31-37); MEAN CORPUSCULAR VOLUME 87 fL (79-100); MONO # 0.9 x10^3/uL (0.0-1.1); MONO % 10 % (0-9); NEUT # 5.2 x10^3/uL (1.8-7.7); NEUT % 56 % (31-73); PLATELET COUNT 294 x10^3/uL (140-400); RED CELL DISTRIBUTION WIDTH 14.8 % (11.5-14.5); WHITE BLOOD COUNT 9.3 x10^3/uL (4.0-11.0)
[2018-12-26 06:22] LABS: ALBUMIN 2.8 g/dL (3.4-5.0); ALBUMIN/GLOBULIN RATIO 0.8 (1.0-1.7); CREATININE 1.2 mg/dL (0.6-1.0); GFR 42.4; POTASSIUM 3.5 mmol/L (3.5-5.1); TOTAL BILIRUBIN 0.3 mg/dL (0.2-1.0); TOTAL PROTEIN 6.5 g/dL (6.4-8.2)
== END | disposition home or self-care (01) ==
LOC: SPEC 02:33
PROVIDERS: ATTEND Internal Medicine
DX: D64.9 Anemia, unspecified (principal)
CPT/HCPCS: 36415; 80053; 85025

== ENCOUNTER → 2019-02-15 | Outpatient (CLI) | payer MEDICARE ==
[~2019-02-15] MED LIST changes: -NITR0.4T SL; +NITR0.4T24 SL
[2019-02-15 06:12] LABS: CALCIUM 9.3 mg/dL (8.5-10.1); CREATININE 1.1 mg/dL (0.6-1.0); GFR 46.9; POTASSIUM 3.9 mmol/L (3.5-5.1)
== END | disposition home or self-care (01) ==
LOC: SPEC 02:16
PROVIDERS: ATTEND Internal Medicine
DX: I25.10 Atherosclerotic heart disease of native coronary artery without angina pectoris (principal); E11.40 Type 2 diabetes mellitus with diabetic neuropathy, unspecified
CPT/HCPCS: 36415; 80048; 83036

== ENCOUNTER → 2019-03-24 | Outpatient (CLI) | payer MEDICARE ==
[~2019-03-24] MED LIST changes: -GLIM2TAB2 PO; +GLIM2TAB3 PO; +SIMV20TA18 PO; -SIMV20TA3 PO
[2019-03-24 08:05] LABS: ALBUMIN 2.9 g/dL (3.4-5.0); CALCIUM 8.7 mg/dL (8.5-10.1); CREATININE 1.1 mg/dL (0.6-1.0); GFR 46.8; PHOSPHORUS 3.7 mg/dL (2.6-4.7); POTASSIUM 3.7 mmol/L (3.5-5.1)
== END | disposition home or self-care (01) ==
LOC: SPEC 07:23
PROVIDERS: ATTEND Internal Medicine
DX: N18.3 Chronic kidney disease, stage 3 (moderate) (principal); Z68.35 Body mass index [BMI] 35.0-35.9, adult
CPT/HCPCS: 36415; 80069

== ENCOUNTER → 2019-04-07 | Outpatient (CLI) | payer MEDICARE ==
[2019-04-07 06:54] LABS: ALBUMIN 2.9 g/dL (3.4-5.0); CREATININE 1.3 mg/dL (0.6-1.0); GFR 38.6; POTASSIUM 3.9 mmol/L (3.5-5.1)
== END | disposition home or self-care (01) ==
LOC: SPEC 00:40
PROVIDERS: ATTEND Family Medicine
DX: D64.9 Anemia, unspecified (principal)
CPT/HCPCS: 36415; 80069

== ENCOUNTER → 2019-06-07 | Outpatient (CLI) | payer MEDICARE ==
[~2019-06-07] MED LIST changes: -GLIM2TAB3 PO; +GLIM2TAB7 PO
[2019-06-07 13:14] LABS: BILIRUBIN,URINE NEGATIVE (NEG); CLARITY,URINE CLEAR; COLOR,URINE YELLOW; NITRITE,URINE NEGATIVE (NEG); PROTEIN,URINE NEGATIVE (NEG-TRACE); UROBILINOGEN,URINE 0.2 mg/dL (0.2 mg/dL)
[2019-06-07 13:37] LABS: HYALINE CASTS, URINE MODERATE /HPF; SQUAMOUS EPITHELIAL CELL,UR MOD /LPF
[2019-06-07 13:38] LABS: BACTERIA,URINE 0 /HPF (0-FEW); RBC,URINE 0 /HPF (0-2); WBC,URINE >40 /HPF (0-4)
== END | disposition home or self-care (01) ==
LOC: SPEC 12:59
PROVIDERS: ATTEND Internal Medicine
DX: R30.0 Dysuria (principal); K21.9 Gastro-esophageal reflux disease without esophagitis; M19.90 Unspecified osteoarthritis, unspecified site
CPT/HCPCS: 81001; 87086; 87186

== ENCOUNTER → 2019-08-23 | Outpatient (CLI) | payer MEDICARE ==
[2019-08-23 05:39] LABS: BASO # 0.1 x10^3/uL (0.0-0.2); BASO % 1 % (0-3); EOS # 0.1 x10^3/uL (0.0-0.7); EOS % 1 % (0-3); HEMATOCRIT 37.3 % (36.0-47.0); HEMOGLOBIN 12.3 g/dL (12.0-15.5); LYMPH # 2.7 x10^3/uL (1.0-4.8); LYMPH % 27 % (24-48); MEAN CORPUSCULAR HEMOGLOBIN 30 pg (25-35); MEAN CORPUSCULAR HGB CONC 33 g/dL (31-37); MEAN CORPUSCULAR VOLUME 91 fL (79-100); MONO % 10 % (0-9); NEUT # 6.3 x10^3/uL (1.8-7.7); NEUT % 62 % (31-73); PLATELET COUNT 303 x10^3/uL (140-400); RED BLOOD COUNT 4.12 x10^6/uL (3.50-5.40); RED CELL DISTRIBUTION WIDTH 14.6 % (11.5-14.5); WHITE BLOOD COUNT 10.2 x10^3/uL (4.0-11.0)
[2019-08-23 05:56] LABS: CALCIUM 8.8 mg/dL (8.5-10.1); CREATININE 1.4 mg/dL (0.6-1.0); GFR 35.4; POTASSIUM 4.8 mmol/L (3.5-5.1); TOTAL BILIRUBIN 0.4 mg/dL (0.2-1.0); TOTAL PROTEIN 6.1 g/dL (6.4-8.2)
[2019-08-23 06:11] LABS: FREE T4 1.06 ng/dL (0.76-1.46); THYROID STIM HORMONE (TSH) 1.735 uIU/mL (0.358-3.74)
== END ==
LOC: SPEC 00:13
PROVIDERS: ATTEND Internal Medicine
DX: D64.9 Anemia, unspecified (principal)
CPT/HCPCS: 36415; 80053; 84439; 84443; 85025

== ENCOUNTER → 2019-09-15 | Outpatient (CLI) | payer MEDICARE ==
[2019-09-15 12:33] LABS: CREATININE 1.7 mg/dL (0.6-1.0); GFR 28.3; POTASSIUM 4.9 mmol/L (3.5-5.1)
== END | disposition home or self-care (01) ==
LOC: SPEC 11:39
PROVIDERS: ATTEND Internal Medicine
DX: D68.9 Coagulation defect, unspecified (principal); E11.22 Type 2 diabetes mellitus with diabetic chronic kidney disease; I13.0 Hypertensive heart and chronic kidney disease with heart failure and stage 1 through stage 4 chronic kidney disease, or unspecified chronic kidney disease; N18.3 Chronic kidney disease, stage 3 (moderate); I50.30 Unspecified diastolic (congestive) heart failure
CPT/HCPCS: 36415; 80048; 83880

== ENCOUNTER → 2019-09-22 | Outpatient (CLI) | payer MEDICARE ==
[~2019-09-22] MED LIST changes: -DICL100G18 TP; +DICL100G54 TP
[2019-09-22 11:08] LABS: CALCIUM 8.7 mg/dL (8.5-10.1); CREATININE 1.4 mg/dL (0.6-1.0); GFR 35.4; POTASSIUM 4.3 mmol/L (3.5-5.1)
== END | disposition home or self-care (01) ==
LOC: SPEC 10:05
PROVIDERS: ATTEND Internal Medicine
DX: E78.5 Hyperlipidemia, unspecified (principal)
CPT/HCPCS: 36415; 80048

== ENCOUNTER → 2019-10-08 | Outpatient (CLI) | payer MEDICARE ==
[2019-10-08 15:09] LABS: BACTERIA,URINE MANY /HPF (0-FEW); BILIRUBIN,URINE NEGATIVE (NEG); CLARITY,URINE CLOUDY; COLOR,URINE YELLOW; NITRITE,URINE NEGATIVE (NEG); PH,URINE 5.5 (<5.0-8.0); PROTEIN,URINE NEGATIVE (NEG-TRACE); RBC,URINE OCC /HPF (0-2); SQUAMOUS EPITHELIAL CELL,UR MANY /LPF; UROBILINOGEN,URINE 0.2 mg/dL (0.2 mg/dL); WBC,URINE 20-40 /HPF (0-4)
== END | disposition home or self-care (01) ==
LOC: LAB 14:50 → SPEC 14:58 → EDSTATUS 10-09 08:52
PROVIDERS: ATTEND Internal Medicine
DX: R30.0 Dysuria (principal)
CPT/HCPCS: 81001; 87086

== ENCOUNTER 2019-10-20 12:06 | Emergency (ER) | payer MEDICARE ==
[~2019-10-20] VITALS: Ht 162.6 cm; Wt 90.9 kg
[~2019-10-20 12:06] MED LIST changes: +CLOT15CR23 TP; -CLOT15CR4 TP
[2019-10-20 12:23] LABS: BILIRUBIN,URINE NEGATIVE (NEG); CLARITY,URINE CLEAR; COLOR,URINE YELLOW; NITRITE,URINE NEGATIVE (NEG); PH,URINE 6.5 (<5.0-8.0); PROTEIN,URINE NEGATIVE (NEG-TRACE); UROBILINOGEN,URINE 0.2 mg/dL (0.2 mg/dL)
[2019-10-20 12:25] VITALS: BP 198/111
[2019-10-20 12:30] LABS: SQUAMOUS EPITHELIAL CELL,UR FEW /LPF
--- NOTE | 2019-10-20 12:30 | PHYS DOC ---
Past Medical History Past Medical History: Angina, COPD, Diabetes-Type II, Diverticulosis, Glaucoma, High Cholesterol, Hypertension, UTI (DARLIN CELESTIN APRN) Past Surgical History: Appendectomy, Hysterectomy Additional Past Surgical Histo: left hip (DARLIN CELESTIN APRN) Smoking Status: Unknown if ever smoked Alcohol Use: None Drug Use: None (DARLIN CELESTIN APRN) General Adult EDM: Chief Complaint: PAIN ON URINATION HPI: HPI: Patient is a 89 year old female with history of diabetes type 2, hypertension, high cholesterol, COPD, who presents to the ED today from a local custodial to be evaluated for pain foot during urination. Patient apparently had a catheter for UTI that was removed yesterday then she started complaining of pain during urination. She was treated with Cipro until October 19, 2019 which is yesterday. Patient denies any fever, nausea, vomiting. (DARLIN CELESTIN APRN) Review of Systems: Review of Systems: Constitutional: Denies fever or chills. [] Eyes: Denies change in visual acuity. [] HENT: Denies nasal congestion or sore throat. [] Respiratory: Denies cough or shortness of breath. [] Cardiovascular: Denies chest pain or edema. [] GI: Denies abdominal pain, nausea, vomiting, bloody stools or diarrhea. [] : Reports dysuria Musculoskeletal: Denies back pain or joint pain. [] Integument: Denies rash. [] Neurologic: Denies headache, focal weakness or sensory changes. [] Psychiatric: Denies depression or anxiety. [] (DARLIN CELESTIN APRN) Heart Score: Risk Factors: Risk Factors: DM, Current or recent (<one month) smoker, HTN, HLP, family history of CAD, obesity. Risk Scores: Score 0 - 3: 2.5% MACE over next 6 weeks - Discharge Home Score 4 - 6: 20.3% MACE over next 6 weeks - Admit for Clinical Observation Score 7 - 10: 72.7% MACE over next 6 weeks - Early Invasive Strategies (DARILN CELESTIN APRN) Allergies: Allergies: Allergies Coded Allergies Type Severity Reaction Last Updated Verified codeine Allergy Intermediate Rash 06/17/18 Yes I S O L A T I O N *CONTACT* Allergy Unknown 06/12/19 Yes (DARLIN CELESTIN APRN) Physical Exam: PE: Constitutional: Well developed, well nourished, no acute distress, non-toxic appearance. [] HENT: Normocephalic, atraumatic, bilateral external ears normal, oropharynx moist, no oral exudates, nose normal. [] Eyes: PERRLA, EOMI, conjunctiva normal, no discharge. [] Neck: Normal range of motion, no tenderness, supple, no stridor. [] Cardiovascular:Heart rate regular rhythm, no murmur [] Lungs & Thorax: Bilateral breath sounds clear to auscultation [] Abdomen: Bowel sounds normal, soft, no tenderness, no masses, no pulsatile masses. [] Skin: Warm, dry, no erythema, no rash. [] Back: No tenderness, no CVA tenderness. [] Extremities: No tenderness, no cyanosis, no clubbing, ROM intact, no edema. [] Neurologic: Alert and oriented X 3, normal motor function, normal sensory func tion, no focal deficits noted. [] Psychologic: Affect normal, judgement normal, mood normal. [] (DARLIN CELESTIN APRN) EKG: EKG: [] (DARLIN CELESTIN APRN) Radiology/Procedures: Radiology/Procedures: [] (DARLIN CELESTIN APRN) Course & Med Decision Making: Course & Med Decision Making Pertinent Labs and Imaging studies reviewed. (See chart for details) This is a 89-year-old female patient presenting to the ED today complaining of dysuria that began yesterday after having catheter removed. She had UTI and finished her Cipro yesterday then her catheter was taken out. Urine positive for UTI. Patient was given Rocephin IM in the ED and discharged with Macrobid. Urine culture pending. Previous culture shows she is susceptible to Macrobid. Encourage patient to push fluids. (DARLIN CELESTIN APRN) Dragon Disclaimer: Dragon Disclaimer: This electronic medical record was generated, in whole or in part, using a voice recognition dictation system. (DARLIN CELESTIN APRN) Departure Departure Impression: Primary Impression: UTI (urinary tract infection) Qualified Codes: T83.511A - Infection and inflammatory reaction due to indwelling urethral catheter, initial encounter; N39.0 - Urinary tract infection, site not specified Disposition: HOME, SELF-CARE Condition: STABLE Referrals: RONNIE MONTANO MD (PCP) Follow-up in the course of next week Patient Instructions: Urinary Tract Infection Additional Instructions: You have urinary tract infection. Please complete the prescribed antibiotics. You were also given an injection of Rocephin. Follow-up with your doctor in the course of this week. Try and avoid using a catheter. Push fluids. Scripts Nitrofurantoin Monohyd/M-Cryst (MACROBID 100 MG CAPSULE) 100 Mg Capsule 1 CAP PO BID for 7 Days, #14 CAP 0 Refills Prov: DARLIN CELESTIN APRN 10/20/19 Nitrofurantoin Monohyd/M-Cryst (MACROBID 100 MG CAPSULE) 100 Mg Capsule 1 CAP PO BID for 7 Days, #14 CAP 0 Refills Prov: DARLIN CELESTIN APRN 10/20/19 Attending Signature Attending Signature I have participated in the care of this patient and I have reviewed and agree with all pertinent clinical information above including history, exam, and recommendations. (DANIEL CARPENTER DO) DARLIN CELESTIN APRN October 20, 2019 12:30 DANIEL CARPENTER DO October 21, 2019 06:29
[2019-10-20 12:31] LABS: BACTERIA,URINE 0 /HPF (0-FEW); WBC,URINE >40 /HPF (0-4)
[2019-10-20] MEDS ORDERED: NITR100C62 PO ×2 (12:47→12:56)
[2019-10-20] MEDS ORDERED: ACETAMINOPHEN 500 MG TABLET PO ONE (13:00)
[2019-10-20] MEDS ORDERED: cefTRIAXone IM 1 GM VIAL IM ONE (13:00)
[2019-10-20] MEDS ORDERED: LIDOCAINE 1% PF 2 ML VIAL. INJ ONE (13:00)
== END 2019-10-20 13:09 | disposition home or self-care (01) ==
LOC: ER 12:06
DX: T83.511A Infection and inflammatory reaction due to indwelling urethral catheter, initial encounter (principal); N39.0 Urinary tract infection, site not specified; R30.0 Dysuria; J44.9 Chronic obstructive pulmonary disease, unspecified; E11.9 Type 2 diabetes mellitus without complications; E78.00 Pure hypercholesterolemia, unspecified; I10 Essential (primary) hypertension; Z90.710 Acquired absence of both cervix and uterus; Z90.89 Acquired absence of other organs; Z98.890 Other specified postprocedural states; Z88.5 Allergy status to narcotic agent; Z88.8 Allergy status to other drugs, medicaments and biological substances
CPT/HCPCS: 81001; 87086; 96372; 99284; J0696; J3490

== ENCOUNTER → 2019-11-14 | Outpatient (CLI) | payer MEDICARE ==
[2019-10-20 12:25] VITALS: BP 198/111
[~2019-11-14] MED LIST changes: -ASPI-612 PO; +ASPI-886 PO; +NITR100C62 PO
[2019-11-14 11:47] LABS: HEMATOCRIT 41.3 % (36.0-47.0); HEMOGLOBIN 13.6 g/dL (12.0-15.5)
[2019-11-14 12:12] LABS: ALBUMIN 3.3 g/dL (3.4-5.0); CALCIUM 8.8 mg/dL (8.5-10.1); CREATININE 1.3 mg/dL (0.6-1.0); GFR 38.6; PHOSPHORUS 4.2 mg/dL (2.6-4.7); POTASSIUM 3.9 mmol/L (3.5-5.1)
== END | disposition home or self-care (01) ==
LOC: SPEC 11:11
PROVIDERS: ATTEND Internal Medicine
DX: N18.3 Chronic kidney disease, stage 3 (moderate) (principal); Z79.899 Other long term (current) drug therapy; E43 Unspecified severe protein-calorie malnutrition
CPT/HCPCS: 36415; 80069; 82728; 83540; 83550; 85014; 85018